=== PATIENT | male | born 1950 | race Caucasian/White ===

== ENCOUNTER 2016-09-29 17:51 | Emergency (ER) | payer MEDICARE, MEDICAID ==
[~2016-09-29] VITALS: Ht 170.2 cm; Wt 90.7 kg
[~2016-09-29 17:51] MED LIST: AMIT25TA9 PO; ASP81TEC PO; ASPI-808 PO; BACL10TA PO; BUDE10.22 IH; DEXL30CA2 PO; DEXL60CA PO; DILT240C53 PO; DILT300C36 PO; DILT360C29 PO; DOXY100C2 PO; DULO60CA58 PO; DULO60CA6 PO; FLUT16SP22 NSEACH; FNT50TD TD; FURO40TA4 PO; GABA-488 PO; GBPN300C PO; HYDR-3454 PO; HYDR200T46; HYDR200T46 PO; LEVO500T80 PO; LOSA100T28 PO; LOSA1TAB23 PO; LOSA1TAB70; METF500T4 PO; METO25TA2 PO; METO50TA2 PO; METR500T21; MORP60TA28 PO; MORP60TA52 PO; OFLO5DRO2 OP; OMEP40CA36 PO; OXYB5TAB9; OXYB5TAB9 PO; POTA20PA3 PO; POTA20TA8 PO; PRED5DRO2I OP; RIVA10TA; RIVA20TA2 PO; RT-ALBUINH IH; SIMV20TA3; SIMV20TA3 PO; TIZA2CAP9; TORS20TA2 PO; UMEC62.5 IH; [UNRECOGNIZED DRUG - CODE] PO
--- OUTSIDE RECORDS SUMMARY | 2016-09-29 17:58 | XMS REPORT | Continuity of Care Document ---
Author Author [facility] Organization [facility] Address Unknown Phone Unavailable Care Team Providers Care Marketing Technology Coordinator Name Role Phone Reena Landon PCP [phone] Source Comments Some departments are not documenting in the electronic medical record. If you do not see the information that you expected, contact Release of Information in the Health Information Management department at [phone] for further assistance in locating additional records.[facility] Active Allergies and Adverse Reactions No Known Allergies Current Medications Prescription Sig. Disp. Refills Start End Date Status Date Diltiazem HCl (CARDIZEM Take 1 Tab by mouth Active LA) 360 mg Tb24 daily. clindamycin,+, (CLEOCIN Apply to affected area Active T) 1 % topical lotion Daily. (to face) simvastatin (ZOCOR) 20 mg Take 20 mg by mouth At Active PO tablet Bedtime Daily. amitriptyline (ELAVIL) 25 Take 25 mg by mouth At Active mg PO tablet Bedtime Daily. aspirin 325 mg tablet Take 325 mg by mouth. Active fentaNYL (DURAGESIC) 50 Apply 1 Patch to top of Active mcg/hr patch skin as directed every 72 hours gabapentin (NEURONTIN) Take 300 mg by mouth Active 300 mg capsule three times daily. oxybutynin (DITROPAN) 5 Take 5 mg by mouth twice Active mg tablet daily. rivaroxaban (XARELTO) 20 Take 20 mg by mouth Active mg tab tablet daily. omeprazole DR(+) Take 40 mg by mouth Active (PRILOSEC) 40 mg capsule daily. pantoprazole DR Take 40 mg by mouth Active (PROTONIX) 40 mg tablet daily. potassium chloride Take 20 mEq by mouth Active (KLOR-CON) 20 mEq packet daily. losartan/hydrochlorothiaz Take by mouth daily. Active audrey (HYZAAR) 100/[address] (CYMBALTA) Take 60 mg by mouth Active 60 mg capsule daily. metoprolol (LOPRESSOR) 25 Take 25 mg by mouth twice Active mg tablet daily. furosemide (LASIX) 40 mg Take 40 mg by mouth Active tablet daily. traMADol (ULTRAM) 50 mg Take 1 Tab by mouth every 90 Tab 2 11/06/19 Active tablet 8 hours as needed for 14 Pain. azithromycin (ZITHROMAX) Z-[place]: Take 2 tabs by 6 Tab 0 08/26/19 Active 250 mg tablet mouth on day 1, followed 15 by 1 tab by mouth daily on days 2-5. hydroxychloroquine 1 Tab twice daily. 60 Tab 2 08/26/19 Active (PLAQUENIL) 200 mg tablet 15 morphine SR (MS CONTIN; Take 60 mg by mouth every Active ORAMORPH SR) 60 mg tablet 12 hours Active Problems Problem Noted Date Antiphospholipid syndrome ([facility]) 08/26/2014 DVT (deep venous thrombosis) ([facility]) 07/22/2013 Immunizations Name Dates Previously Given Next Due Pneumococcal Vaccine 07/27/2010 (23-Diana Adult) Social History Tobacco Use Types Packs/Day Years Used Date Current Every Day Smoker Cigarettes 2 40 Smokeless Tobacco: Never Used Alcohol Use Drinks/Week oz/Week Comments No Last Filed Vital Signs Vital Sign Reading Time Taken Blood Pressure 99/65 02/19/2015 12:59 PM CDT Pulse 50 02/19/2015 12:59 PM CDT Temperature 36.7 C (98 F) 02/19/2015 12:59 PM CDT Respiratory Rate 20 02/19/2015 12:59 PM CDT Height 1.623 m (5' 3.9") 02/19/2015 12:59 PM CDT Weight 99.066 kg (218 lb 6.4 oz) 02/19/2015 12:59 PM CDT Body Mass Index 37.61 02/19/2015 12:59 PM CDT Oxygen Saturation 93% 12/04/2013 11:35 AM CDT Plan of Care Health Maintenance Due Date Last Done Comments Physical (Comprehensive) 1958 Exam Pertussis Vaccine 1962 Tetanus Vaccine 1968 Colorectal Cancer 2001 Screening Shingles Vaccine 2011 Influenza Vaccine 03/23/2016 Results from Last 3 Months Not on file
[2016-09-29] MEDS ORDERED: GABA600T2 PO (18:41)
[2016-09-29] MEDS ORDERED: ROPI2TAB4 PO (18:41)
[2016-09-29] MEDS ORDERED: RT-ALBUTEROL/IPRATROPIUM 3 ML (DUONEB) VIAL ONE (18:58)
[2016-09-29 19:00] LABS: BASOPHILS % (AUTO) 0 % (0-10); EOSINOPHILS # (AUTO) 0.1 10^3/uL (0.0-0.3); EOSINOPHILS % (AUTO) 1 % (0-10); LYMPHOCYTES # (AUTO) 0.6 X 10^3 (1.0-4.0); LYMPHOCYTES % (AUTO) 3 % (12-44); MEAN CORPUSCULAR HEMOGLOBIN 23 PG (25-34); MEAN CORPUSCULAR HGB CONC 34 G/DL (32-36); MEAN CORPUSCULAR VOLUME 68 FL (80-99); MEAN PLATELET VOLUME 10.7 FL (7.4-10.4); MONOCYTES # (AUTO) 1.2 X 10^3 (0.0-1.0); MONOCYTES % (AUTO) 5 % (0-12); NEUTROPHILS # (AUTO) 20.1 X 10^3 (1.8-7.8); NEUTROPHILS % (AUTO) 91 % (42-75); PLATELET COUNT 391 10^3/uL (130-400); RED BLOOD COUNT 5.14 10^6/uL (4.35-5.85); RED CELL DISTRIBUTION WIDTH 19.8 % (10.0-14.5); WHITE BLOOD COUNT 22.1 10^3/uL (4.3-11.0)
[2016-09-29 19:05] LABS: ABG BASE EXCESS -4.3 MMOL/L (-2.5-2.5); ABG HCO3 20 MMOL/L (23-27); ABG OXYGEN SATURATION 94 % (94-100); ABG PCO2 38 MMHG (35-45); ABG PO2 74 MMHG (79-93); ABG TCO2 21.5 MMOL/L (21.0-31.0)
--- NOTE | 2016-09-29 19:09 | Diagnostic Imaging Report ---
EXAMINATION: CHEST (PA AND LATERAL) CLINICAL INDICATION: 66-year-old male, shortness of breath. COMPARISON: April 10, 2016. FINDINGS: Heart size and mediastinal contours are grossly unchanged given differences in lung volumes and technique. There is no identified pneumothorax. There is no definite pleural effusion. There are low lung volumes with associated central bronchovascular crowding. There are mildly prominent pulmonary vascular markings which may relate to the low lung volumes versus pulmonary vascular congestion. IMPRESSION: 1. Low lung volumes with mildly prominent interstitial markings which may relate to central bronchovascular crowding versus mild pulmonary vascular congestion. Dictated by: Dictated on workstation # [id number]
[2016-09-29 19:12] LABS: INR 1.6 (0.8-1.4); PROTHROMBIN TIME PATIENT 18.5 SEC (12.2-14.7)
[2016-09-29 19:18] LABS: ABG PH 7.34 (7.37-7.43); ALLENS TEST YES-POS
[2016-09-29 19:21] LABS: EOSINOPHILS % (MANUAL) 1 %; LYMPHOCYTES % (MANUAL) 1 %; NEUTROPHILS % (MANUAL) 90 %
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
[2016-09-29 19:28] LABS: ALANINE AMINOTRANSFERASE 21 U/L (0-55); ALBUMIN 4.2 G/DL (3.2-4.5); ANION GAP 18 MMOL/L (5-14); ASPARTATE AMINO TRANSFERASE 29 U/L (5-34); BILIRUBIN,TOTAL 0.4 MG/DL (0.1-1.0); BLOOD UREA NITROGEN 51 MG/DL (7-18); BUN/CREATININE RATIO 11; CALCIUM 8.7 MG/DL (8.5-10.1); CARBON DIOXIDE 16 MMOL/L (21-32); CHLORIDE 88 MMOL/L (98-107); CREATININE SERUM 4.79 MG/DL (0.60-1.30); GFR ESTIMATED 12; GLUCOSE 129 MG/DL (70-105); POTASSIUM 5.6 MMOL/L (3.6-5.0); TOTAL PROTEIN 7.6 G/DL (6.4-8.2)
[2016-09-29] MEDS ORDERED: RT-ALBUTEROL SULF 2.5 MG/3 ML PRE-MIX VIAL INH STA (19:29)
[2016-09-29] MEDS ORDERED: methylPREDNISolone 125 MG (Solu-MEDROL) VIAL IVP ONE (19:30)
[2016-09-29] MEDS ORDERED: RT-IPRATROPIUM (ATROVENT) 0.5MG/2.5ML AMP IH ONE ×2 (19:30→19:31)
[2016-09-29] MEDS ORDERED: RT-ALBUTEROL SULF 2.5 MG/3 ML PRE-MIX VIAL ONE (19:31)
[2016-09-29 19:34] LABS: SODIUM 122 MMOL/L (135-145); TROPONIN I < 0.30 NG/ML (<0.30)
[2016-09-29] MEDS ORDERED: NS IV 1000 ML 1,000 ML IV ONE ×2 (19:40→21:40)
[2016-09-29 19:41] LABS: KETONES,URINE 1+ (NEGATIVE); LEUKOCYTE ESTERASE ,URINE 1+ (NEGATIVE); NITRITE,URINE NEGATIVE (NEGATIVE); PH,URINE 5 (5-9); PROTEIN,URINE 2+ (NEGATIVE); UROBILINOGEN,URINE NORMAL (NORMAL)
[2016-09-29] MEDS ORDERED: PIPERACILLIN SODIUM/TAZOBACTAM 4.5 GM in NS (IVPB) 100 ML IV ONE (19:45)
[2016-09-29 19:51] LABS: BILIRUBIN,URINE 2+ (NEGATIVE); SQUAMOUS EPITHELIAL CELL,UR RARE /HPF
[2016-09-29 19:52] LABS: HYALINE CASTS, URINE 25-50 /LPF
[2016-09-29] MEDS ORDERED: SOD POLYSTERENE 15 GM/60 ML (KAYEXALATE) UNIT DOSE PO ONE (20:00)
--- NOTE | 2016-09-29 20:24 | Diagnostic Imaging Report ---
PROCEDURE: CT head and CT cervical spine without contrast. TECHNIQUE: Multiple contiguous axial images were obtained through the brain and cervical spine without the use of intravenous contrast. Sagittal and coronal reformations through the cervical spine were then performed. INDICATION: Lethargy. Shortness of air. COMPARISON: CT head and cervical spine without contrast 04/10/2016. FINDINGS: CT head: Generalized cerebral and cerebellar parenchymal volume loss. Left convexity craniotomy. Stable encephalomalacia in the left parietal and occipital lobes. No intracranial hemorrhage, mass effect, hydrocephalus or extra-axial fluid collections. No CT evidence of acute infarction. The visualized paranasal sinuses, mastoids and orbits are negative. CT cervical spine: Examination mildly limited by motion artifact, particularly at the level of the craniocervical junction. Normal alignment. Vertebral body heights are maintained. No acute fractures identified. Moderate to advanced degenerative endplate changes are most marked at C4-C5, no evidence of high-grade spinal canal narrowing on this noncontrast exam. Arterial calcifications including the carotid bifurcations. The visualized paravertebral soft tissues are otherwise unremarkable. IMPRESSION: No acute intracranial or cervical spine CT findings. Dictated by: Dictated on workstation # [id number]
[2016-09-29] MEDS ORDERED: NALOXONE 0.4 MG/ML 1 ML (NARCAN) VIAL IV ONE (21:00)
[2016-09-29] MEDS ORDERED: D5W 250 ML (IVPB) 250 ML IV ONE (21:44)
[2016-09-29] MEDS ORDERED: NOREPINEPHRINE 4 MG/4 ML (LEVOPHED) AMP IV ONE (21:44)
[2016-09-29] MEDS ORDERED: NOREPINEPHRINE 4 MG in D5W 250 ML (IVPB) 250 ML IV SCH (21:45)
[2016-09-29 22:18] VITALS: BP 106/59
[2016-11-06] MEDS ORDERED: CEFU500T63 PO (14:51)
== END 2016-09-29 22:18 | disposition short-term general hospital (02) ==
LOC: EDUNIT# 17:51 → ER 17:53
DX: J18.9 Pneumonia, unspecified organism (principal); R65.20 Severe sepsis without septic shock; N17.9 Acute kidney failure, unspecified; J44.1 Chronic obstructive pulmonary disease with (acute) exacerbation; E87.5 Hyperkalemia; E87.1 Hypo-osmolality and hyponatremia; I48.2 Chronic atrial fibrillation; R41.82 Altered mental status, unspecified; I10 Essential (primary) hypertension; E11.9 Type 2 diabetes mellitus 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s; G20 Parkinson's disease; F17.210 Nicotine dependence, cigarettes, uncomplicated; Z79.01 Long term (current) use of anticoagulants; Z79.84 Long term (current) use of oral hypoglycemic drugs; Z79.899 Other long term (current) drug therapy
CPT/HCPCS: 36415; 51702; 70450; 71020; 72125; 80053; 81000; 82805; 82962; 83605; 83880; 84484; 85007; 85027; 85610; 85730; 87040; 87804; 93005; 93041; 94640; 96361; 96365; 96367; 96375

== ENCOUNTER → 2016-10-11 | Outpatient (CLI) | payer MEDICARE, MEDICAID ==
[~2016-10-11] MED LIST changes: +CEFU500T63 PO; +GABA600T2 PO; +HYDR-757 PO; +PHEN-639 PO; +ROPI2TAB4 PO
[2016-10-12 09:03] LABS: BILIRUBIN,URINE NEGATIVE (NEGATIVE); KETONES,URINE NEGATIVE (NEGATIVE); LEUKOCYTE ESTERASE ,URINE 2+ (NEGATIVE); NITRITE,URINE POSITIVE (NEGATIVE); PH,URINE 5 (5-9); PROTEIN,URINE 2+ (NEGATIVE); UROBILINOGEN,URINE NORMAL (NORMAL); WBC,URINE >100 /HPF
== END ==
LOC: CVS 21:50
PROVIDERS: ATTEND Internal Medicine
DX: R35.0 Frequency of micturition (principal)
CPT/HCPCS: 81000; 87088

== ENCOUNTER → 2016-11-06 | Emergency (ER) | payer MEDICARE, MEDICAID ==
[~2016-11-06] VITALS: Ht 172.7 cm; Wt 90.7 kg
[~2016-11-06] MED LIST changes: +CATHETER FLUSH 10 ML SYR IV PRN; +IOHEXOL 350 MG/ML 100 ML (OMNIPAQUE 350) VIAL IV ONE; +NS 100 ML (IVPB) BAG IV ONE; +PHENAZOPYRIDINE 100 MG (PYRIDIUM) TABLET PO ONE; +cefTRIAXone INJECTION 1,000 MG in NS (IVPB) 50 ML IV ONE
[2016-11-06 13:52] LABS: BASOPHILS % (AUTO) 0 % (0-10); EOSINOPHILS # (AUTO) 0.2 10^3/uL (0.0-0.3); EOSINOPHILS % (AUTO) 2 % (0-10); LYMPHOCYTES # (AUTO) 1.9 X 10^3 (1.0-4.0); LYMPHOCYTES % (AUTO) 21 % (12-44); MEAN CORPUSCULAR HEMOGLOBIN 23 PG (25-34); MEAN CORPUSCULAR HGB CONC 32 G/DL (32-36); MEAN CORPUSCULAR VOLUME 73 FL (80-99); MEAN PLATELET VOLUME 10.3 FL (7.4-10.4); MONOCYTES # (AUTO) 0.8 X 10^3 (0.0-1.0); MONOCYTES % (AUTO) 9 % (0-12); NEUTROPHILS # (AUTO) 6.1 X 10^3 (1.8-7.8); NEUTROPHILS % (AUTO) 68 % (42-75); PLATELET COUNT 318 10^3/uL (130-400); RED BLOOD COUNT 4.18 10^6/uL (4.35-5.85); RED CELL DISTRIBUTION WIDTH 21.4 % (10.0-14.5); WHITE BLOOD COUNT 8.9 10^3/uL (4.3-11.0)
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
[2016-11-06 14:14] LABS: ALANINE AMINOTRANSFERASE 26 U/L (0-55); ALBUMIN 3.9 G/DL (3.2-4.5); ANION GAP 11 MMOL/L (5-14); ASPARTATE AMINO TRANSFERASE 24 U/L (5-34); BILIRUBIN,TOTAL 0.2 MG/DL (0.1-1.0); BLOOD UREA NITROGEN 11 MG/DL (7-18); BUN/CREATININE RATIO 10; CALCIUM 8.4 MG/DL (8.5-10.1); CARBON DIOXIDE 20 MMOL/L (21-32); CHLORIDE 101 MMOL/L (98-107); CREATININE SERUM 1.13 MG/DL (0.60-1.30); GFR ESTIMATED > 60; GLUCOSE 311 MG/DL (70-105); POTASSIUM 3.8 MMOL/L (3.6-5.0); SODIUM 132 MMOL/L (135-145); TOTAL PROTEIN 6.9 G/DL (6.4-8.2)
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
[2016-11-06 14:28] LABS: BILIRUBIN,URINE NEGATIVE (NEGATIVE); KETONES,URINE NEGATIVE (NEGATIVE); LEUKOCYTE ESTERASE ,URINE 2+ (NEGATIVE); NITRITE,URINE POSITIVE (NEGATIVE); PH,URINE 5 (5-9); PROTEIN,URINE 1+ (NEGATIVE); UROBILINOGEN,URINE NORMAL (NORMAL)
[2016-11-06 14:45] LABS: SQUAMOUS EPITHELIAL CELL,UR 0-2 /HPF
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
[2016-11-06 16:20] VITALS: BP 180/89
== END | disposition home or self-care (01) ==
LOC: EDUNIT# 12:50 → ER 12:53
DX: N39.0 Urinary tract infection, site not specified (principal); N32.89 Other specified disorders of bladder; I10 Essential (primary) hypertension; E11.9 Type 2 diabetes mellitus 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s; G20 Parkinson's disease; F17.210 Nicotine dependence, cigarettes, uncomplicated; Z79.82 Long term (current) use of aspirin; Z79.84 Long term (current) use of oral hypoglycemic drugs; Z79.899 Other long term (current) drug therapy
CPT/HCPCS: 36415; 71260; 74160; 74176; 80053; 81000; 85025; 87077; 87088; 87186; 96365

== ENCOUNTER 2016-11-10 19:42 | Emergency (ER) | payer MEDICARE, MEDICAID ==
[~2016-11-10] VITALS: Ht 170.2 cm; Wt 95.3 kg
[~2016-11-10 19:42] MED LIST changes: -CATHETER FLUSH 10 ML SYR IV PRN; -HYDR-757 PO; -IOHEXOL 350 MG/ML 100 ML (OMNIPAQUE 350) VIAL IV ONE; -NS 100 ML (IVPB) BAG IV ONE; -PHEN-639 PO; -PHENAZOPYRIDINE 100 MG (PYRIDIUM) TABLET PO ONE; -cefTRIAXone INJECTION 1,000 MG in NS (IVPB) 50 ML IV ONE
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
[2016-11-10 20:20] LABS: BASOPHILS % (AUTO) 0 % (0-10); EOSINOPHILS # (AUTO) 0.3 10^3/uL (0.0-0.3); EOSINOPHILS % (AUTO) 1 % (0-10); LYMPHOCYTES # (AUTO) 1.7 X 10^3 (1.0-4.0); LYMPHOCYTES % (AUTO) 9 % (12-44); MEAN CORPUSCULAR HEMOGLOBIN 24 PG (25-34); MEAN CORPUSCULAR HGB CONC 32 G/DL (32-36); MEAN CORPUSCULAR VOLUME 74 FL (80-99); MEAN PLATELET VOLUME 9.6 FL (7.4-10.4); MONOCYTES # (AUTO) 2.2 X 10^3 (0.0-1.0); MONOCYTES % (AUTO) 11 % (0-12); NEUTROPHILS # (AUTO) 16.1 X 10^3 (1.8-7.8); NEUTROPHILS % (AUTO) 79 % (42-75); PLATELET COUNT 353 10^3/uL (130-400); RED BLOOD COUNT 4.38 10^6/uL (4.35-5.85); RED CELL DISTRIBUTION WIDTH 21.9 % (10.0-14.5); WHITE BLOOD COUNT 20.3 10^3/uL (4.3-11.0)
--- NOTE | 2016-11-10 20:28 | Diagnostic Imaging Report ---
INDICATION: Fall. Anterior left rib pain Four views of the chest and left ribs were obtained. The heart size and vascularity are normal. The lungs are clear. There is no effusion or pneumothorax. No rib fracture or other acute bony abnormality is seen. IMPRESSION: Normal chest and left ribs. Dictated by: Dictated on workstation # [id number]
[2016-11-10 20:45] LABS: BAND NEUTROPHILS 3 %; BASOPHILS % (MANUAL) 0 %; EOSINOPHILS % (MANUAL) 3 %; LYMPHOCYTES % (MANUAL) 14 %; NEUTROPHILS % (MANUAL) 72 %
[2016-11-10 20:47] LABS: ANION GAP 12 MMOL/L (5-14); BLOOD UREA NITROGEN 11 MG/DL (7-18); BUN/CREATININE RATIO 10; CALCIUM 8.4 MG/DL (8.5-10.1); CARBON DIOXIDE 21 MMOL/L (21-32); CHLORIDE 100 MMOL/L (98-107); CREATININE SERUM 1.08 MG/DL (0.60-1.30); GFR ESTIMATED > 60; GLUCOSE 105 MG/DL (70-105); POTASSIUM 3.9 MMOL/L (3.6-5.0); SODIUM 133 MMOL/L (135-145)
--- NOTE | 2016-11-10 20:52 | Diagnostic Imaging Report ---
PROCEDURE: CT abdomen and pelvis without contrast. TECHNIQUE: Multiple contiguous axial images were obtained through the abdomen and pelvis without the use of intravenous contrast. INDICATION: Fell five days ago and hit the left side. Left-sided pain. FINDINGS: The lung bases are clear. No rib fracture is seen. The liver, gallbladder and bile ducts are normal. The spleen, pancreas and adrenals are normal. The kidneys, ureters and bladder are normal. No acute bowel abnormality is seen. There is an inguinal hernia on the right which appears to contain the appendix. There is no hemorrhage. There is no free air or free fluid. There are lymph nodes seen in the groin, bilaterally, measuring approximately 16 mm in greatest dimension. IMPRESSION: There is a right inguinal hernia which contains the appendix. There are mildly prominent bilateral inguinal lymph nodes. No other significant abnormality is seen. Dictated by: Dictated on workstation # [id number]
[2016-11-10 22:00] LABS: KETONES,URINE NEGATIVE (NEGATIVE); LEUKOCYTE ESTERASE ,URINE 1+ (NEGATIVE); NITRITE,URINE POSITIVE (NEGATIVE); PH,URINE 5 (5-9); PROTEIN,URINE 1+ (NEGATIVE); UROBILINOGEN,URINE 4 MG/DL (NORMAL)
[2016-11-10 22:08] LABS: BILIRUBIN,URINE NEGATIVE (NEGATIVE)
[2016-11-10 22:09] LABS: SQUAMOUS EPITHELIAL CELL,UR 0-2 /HPF
[2016-11-10] MEDS ORDERED: HYDR-757 PO (22:40)
[2016-11-10] MEDS ORDERED: PHEN-639 PO (22:40)
[2016-11-10 22:44] VITALS: BP 142/67
== END 2016-11-10 22:44 | disposition home or self-care (01) ==
LOC: EDUNIT# 19:42 → ER 19:44
DX: D72.829 Elevated white blood cell count, unspecified (principal); S20.212A Contusion of left front wall of thorax, initial encounter; K40.90 Unilateral inguinal hernia, without obstruction or gangrene, not specified as recurrent; R59.1 Generalized enlarged lymph nodes; J44.9 Chronic obstructive pulmonary disease, unspecified; I10 Essential (primary) hypertension; E11.9 Type 2 diabetes mellitus 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s; G20 Parkinson's disease; Z79.01 Long term (current) use of anticoagulants; Z79.82 Long term (current) use of aspirin; Z79.899 Other long term (current) drug therapy; Z87.891 Personal history of nicotine dependence; W06.XXXA Fall from bed, initial encounter; Y92.538 Other ambulatory health services establishments as the place of occurrence of the external cause; Y99.8 Other external cause status
CPT/HCPCS: 36415; 71101; 74176; 80048; 80306; 81000; 83605; 85007; 85027; 87040; 87077; 87088; 87186; 99282

== ENCOUNTER → 2016-11-11 | Outpatient (CLI) | payer MEDICARE, MEDICAID ==
[~2016-11-11] MED LIST changes: +HYDR-757 PO; +PHEN-639 PO
[2016-11-11 13:12] LABS: BASOPHILS % (AUTO) 0 % (0-10); EOSINOPHILS # (AUTO) 0.3 10^3/uL (0.0-0.3); EOSINOPHILS % (AUTO) 2 % (0-10); LYMPHOCYTES # (AUTO) 1.7 X 10^3 (1.0-4.0); LYMPHOCYTES % (AUTO) 11 % (12-44); MEAN CORPUSCULAR HEMOGLOBIN 24 PG (25-34); MEAN CORPUSCULAR HGB CONC 32 G/DL (32-36); MEAN CORPUSCULAR VOLUME 74 FL (80-99); MEAN PLATELET VOLUME 9.6 FL (7.4-10.4); MONOCYTES % (AUTO) 7 % (0-12); NEUTROPHILS # (AUTO) 12.5 X 10^3 (1.8-7.8); NEUTROPHILS % (AUTO) 80 % (42-75); PLATELET COUNT 335 10^3/uL (130-400); RED CELL DISTRIBUTION WIDTH 22.2 % (10.0-14.5); WHITE BLOOD COUNT 15.6 10^3/uL (4.3-11.0)
[2016-11-11 13:29] LABS: ALANINE AMINOTRANSFERASE 15 U/L (0-55); ALBUMIN 3.9 G/DL (3.2-4.5); ANION GAP 13 MMOL/L (5-14); ASPARTATE AMINO TRANSFERASE 26 U/L (5-34); BILIRUBIN,TOTAL 0.5 MG/DL (0.1-1.0); BLOOD UREA NITROGEN 9 MG/DL (7-18); BUN/CREATININE RATIO 10; CALCIUM 9.1 MG/DL (8.5-10.1); CARBON DIOXIDE 21 MMOL/L (21-32); CHLORIDE 101 MMOL/L (98-107); CREATININE SERUM 0.91 MG/DL (0.60-1.30); GFR ESTIMATED > 60; GLUCOSE 85 MG/DL (70-105); POTASSIUM 3.9 MMOL/L (3.6-5.0); SODIUM 135 MMOL/L (135-145); TOTAL PROTEIN 7.4 G/DL (6.4-8.2); hs C REACTIVE PROTEIN 15.03 MG/DL (0.00-0.50)
== END ==
LOC: LAB 12:52
PROVIDERS: ATTEND Family Medicine
DX: N39.0 Urinary tract infection, site not specified (principal); D72.829 Elevated white blood cell count, unspecified
CPT/HCPCS: 36415; 80053; 85025; 86141

== ENCOUNTER 2017-01-26 14:55 | Emergency (ER) | payer MEDICARE, MEDICAID ==
[~2017-01-26] VITALS: Ht 170.2 cm; Wt 95.3 kg
[2017-01-26] MEDS ORDERED: CARB1TAB19 (16:37)
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
[2017-01-26 17:14] LABS: BASOPHILS # (AUTO) 0.1 10^3/uL (0.0-0.1); BASOPHILS % (AUTO) 1 % (0-10); EOSINOPHILS # (AUTO) 0.3 10^3/uL (0.0-0.3); EOSINOPHILS % (AUTO) 3 % (0-10); LYMPHOCYTES # (AUTO) 2.3 X 10^3 (1.0-4.0); LYMPHOCYTES % (AUTO) 26 % (12-44); MEAN CORPUSCULAR HEMOGLOBIN 23 PG (25-34); MEAN CORPUSCULAR HGB CONC 31 G/DL (32-36); MEAN CORPUSCULAR VOLUME 74 FL (80-99); MEAN PLATELET VOLUME 9.8 FL (7.4-10.4); MONOCYTES # (AUTO) 1.2 X 10^3 (0.0-1.0); MONOCYTES % (AUTO) 13 % (0-12); NEUTROPHILS # (AUTO) 5.2 X 10^3 (1.8-7.8); NEUTROPHILS % (AUTO) 57 % (42-75); PLATELET COUNT 289 10^3/uL (130-400); RED BLOOD COUNT 4.63 10^6/uL (4.35-5.85); RED CELL DISTRIBUTION WIDTH 18.6 % (10.0-14.5); WHITE BLOOD COUNT 9.1 10^3/uL (4.3-11.0)
[2017-01-26 17:31] LABS: ALANINE AMINOTRANSFERASE 20 U/L (0-55); ALBUMIN 4.3 GM/DL (3.2-4.5); ANION GAP 9 MMOL/L (5-14); ASPARTATE AMINO TRANSFERASE 24 U/L (5-34); BILIRUBIN,TOTAL 0.4 MG/DL (0.1-1.0); BLOOD UREA NITROGEN 9 MG/DL (7-18); BUN/CREATININE RATIO 9; CALCIUM 9.5 MG/DL (8.5-10.1); CARBON DIOXIDE 22 MMOL/L (21-32); CHLORIDE 101 MMOL/L (98-107); CREATININE SERUM 0.98 MG/DL (0.60-1.30); GFR ESTIMATED > 60; GLUCOSE 117 MG/DL (70-105); POTASSIUM 4.4 MMOL/L (3.6-5.0); SODIUM 132 MMOL/L (135-145); TOTAL PROTEIN 7.6 GM/DL (6.4-8.2)
[2017-01-26 17:50] LABS: BILIRUBIN,URINE NEGATIVE (NEGATIVE); KETONES,URINE NEGATIVE (NEGATIVE); LEUKOCYTE ESTERASE ,URINE 1+ (NEGATIVE); NITRITE,URINE NEGATIVE (NEGATIVE); PH,URINE 6 (5-9); PROTEIN,URINE 1+ (NEGATIVE); UROBILINOGEN,URINE NORMAL (NORMAL)
[2017-01-26 18:00] LABS: WBC,URINE 0-2 /HPF
--- NOTE | 2017-01-26 18:13 | Diagnostic Imaging Report ---
PROCEDURE: CT head and CT cervical spine without contrast. TECHNIQUE: Multiple contiguous axial images were obtained through the brain and cervical spine without the use of intravenous contrast. Sagittal and coronal reformations through the cervical spine were then performed. INDICATION: Head and neck pain. CT HEAD: As noted on the prior exam of 09/29/16 there has been a prior left frontoparietal craniotomy. The bone windows show no sign of a fracture or for a destructive lesion. There is no intracranial mass, shift of the midline or hemorrhage identified either. There is no sign of an asymmetric hyperdense vessel. The ventricles are not abnormally dilated and stable in size. The cortical atrophy and periventricular encephalomalacia, seen previously, are again evident and no different. The orbits are symmetrical and within normal limits. The sinuses are generally clear. Impression: The postsurgical changes involving the left frontal parietal bone, seen previously, appear stable. There is no acute intracranial abnormality noted. 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 These findings are similar to the previous exam of 09/29/16. There is no fracture or acute bony abnormality evident. There is no sign of retropharyngeal edema. The thyroid gland is unremarkable. The lung apices are clear. There does appear be a small 4-5 mm soft tissue nodule along the wall of the trachea on the right just below the level of the larynx. This finding was not clearly evident on the recent exam. I suspect that this is a benign process. Even so, its development since the previous exam does warrant further study. Direct visualization would be recommended. IMPRESSION: 1. There is no evidence for an acute bony abnormality. 2. There is a small soft tissue density now present along the right lateral wall of the trachea below the level of the larynx. Recommendations as above. 3. These results were discussed with Dr. Segura in the ER. Dictated by: Dictated on workstation # [id number]
[2017-01-26] MEDS ORDERED: fentaNYL INJECTION 100 MCG/2 ML AMP IM ONE (18:15)
[2017-01-26 18:40] VITALS: BP 135/80
--- OUTSIDE RECORDS SUMMARY | 2017-01-30 07:49 | XMS REPORT | Continuity of Care Document ---
Author Author [facility] Organization [facility] Address Unknown Phone Unavailable Care Team Providers Care Gluing Machine Operator Electronic Name Role Phone Reena Landon PCP [phone] Source Comments Some departments are not documenting in the electronic medical record. If you do not see the information that you expected, contact Release of Information in the Health Information Management department at [phone] for further assistance in locating additional records.[facility] Active Allergies and Adverse Reactions No Known [...] Active Problems Problem Noted Date Antiphospholipid syndrome ([facility]) 08/26/2014 DVT (deep venous thrombosis) ([facility]) 07/22/2013 Immunizations Name Dates Previously Given Next [...] Health Maintenance Due Date Last Done Comments Hepatitis C Screening 1950 Physical (Comprehensive) 1958 Exam Pertussis Vaccine 1962 Tetanus Vaccine 1968 Colorectal Cancer 2001 Screening Shingles Vaccine 2011 Abdominal Aortic Aneurysm 2016 Screening Prevnar/Pneumovax (#1) 2016 07/27/2010 Influenza Vaccine 03/23/2017 Results from Last 3 Months Not on file
--- OUTSIDE RECORDS SUMMARY | 2017-01-30 07:53 | XMS REPORT | Continuity of Care Document ---
Author Author [facility] Organization [facility] Address Unknown Phone Unavailable Allergies Active Description Code Type Severity Reaction Onset Reported/Identified Relationship to Patient Clinical Status Yes No Known Drug Allergies [id number] Drug Allergy Unknown N/ A 04/14/2010 Medications Problems Date Dx Coded Attending Type Code Diagnosis Diagnosed By 06/21/1150 GRAZYNA BUSTOS, ALEJANDRO Rahman Ot I87.8 OTHER SPECIFIED DISORDERS OF VEINS 04/14/2010 Ot 530.81 04/14/2010 Ot 558.9 04/14/2010 Ot 562.10 05/05/2012 Ot 272.4 HYPERLIPIDEMIA NEC/NOS 05/05/2012 Ot 305.1 TOBACCO USE DISORDER 05/05/2012 Ot 401.9 HYPERTENSION NOS 05/05/2012 Ot 435.9 TRANS CEREB ISCHEMIA NOS 05/05/2012 Ot 496 CHR AIRWAY OBSTRUCT NEC 05/05/2012 Ot 530.81 ESOPHAGEAL REFLUX 05/05/2012 Ot 593.9 RENAL URETERAL DIS NOS 05/05/2012 Ot 715.90 OSTEOARTHROS NOS-UNSPEC 05/05/2012 Ot 782.3 EDEMA 08/30/2012 Ot 478.19 OTHER DISEASE OF NASAL CAVITY AND SINUSE 08/30/2012 Ot 528.5 DISEASES OF LIPS 12/02/2012 JUSTEN BUSTOS, SHOAIB Panchal Ot 789.00 ABDOMINAL PAIN, UNSPECIFIED SITE 04/14/2014 EDER MURRAY MD Ot 723.1 CERVICALGIA 04/14/2014 EDER MURRAY MD Ot V57.1 PHYSICAL THERAPY NEC 08/07/2014 Ot 784.2 08/07/2014 Ot V81.5 08/07/2014 Ot 528.5 08/07/2014 Ot 784.2 08/07/2014 Ot V72.63 08/07/2014 Ot V72.81 08/07/2014 Ot V72.83 08/07/2014 Ot V74.8 08/07/2014 MERVIN JOY MD Ot 722.4 08/07/2014 MERVIN JOY MD L Ot 729.89 08/07/2014 RUFINO BUSTOS, MERVIN L Ot 782.0 08/13/2014 CANDIDO BUSTOS, ALESSANDRO S Ot 530.11 REFLUX ESOPHAGITIS 08/31/2014 CANDIDO BUSTOS, ALESSANDRO S Ot 462 08/31/2014 CANDIDO BUSTOS, ALESSANDRO S Ot 789.01 09/01/2014 CANDIDO BUSTOS, ALESSANDRO S Ot 462 09/01/2014 CANDIDO BUSTOS, ALESSANDRO S Ot 789.01 10/01/2014 Ot 530.11 REFLUX ESOPHAGITIS 10/30/2014 Ot 490 10/30/2014 Ot 786.05 11/05/2014 Ot V72.84 11/06/2014 Ot 490 11/06/2014 Ot 786.05 11/27/2014 RUFINO BUSTOS, MERVIN L Ot 305.1 11/27/2014 RUFINO BUSTOS, MERVIN Dukes Ot 786.05 12/11/2014 RUFINO BUSTOS, MERVIN L Ot 305.1 12/11/2014 RUFINO BUSTOS, MERVIN L Ot 786.05 12/24/2015 YEE COLVIN DOI Ot D72.829 ELEVATED WHITE BLOOD CELL COUNT, UNSPECI 12/24/2015 VINICIUS SARMIENTO CLARENCE Ot E11.9 TYPE 2 DIABETES MELLITUS WITHOUT COMPLIC 12/24/2015 VINICIUS SARMIENTO CLARENCE Ot F32.9 MAJOR DEPRESSIVE DISORDER, SINGLE EPISOD 12/24/2015 VINICIUS DO CLARENCE Ot F41.9 ANXIETY DISORDER, UNSPECIFIED 12/24/2015 VINICIUS SARMIENTO CLARENCE Ot I10 ESSENTIAL (PRIMARY) HYPERTENSION 12/24/2015 VINICIUS SARMIENTO CLARENCE Ot J44.9 CHRONIC OBSTRUCTIVE PULMONARY DISEASE, U 12/24/2015 VINICIUS DO CLARENCE Ot R10.32 LEFT LOWER QUADRANT PAIN 12/24/2015 VINICIUS DO CLARENCE Ot R19.7 DIARRHEA, UNSPECIFIED 12/24/2015 YEE COLVIN DOI Ot Z87.891 PERSONAL HISTORY OF NICOTINE DEPENDENCE 04/10/2016 Ot 528.5 DISEASES OF LIPS 04/10/2016 Ot 784.2 SWELLING IN HEAD NECK 04/10/2016 Ot V72.63 PRE-PROCEDURAL LABORATORY EXAMINATION 04/10/2016 Ot V72.81 [id number] CARDIOVASCULAR 04/10/2016 Ot V72.83 EXAM PRE-OPERATIVE NEC 04/10/2016 Ot V74.8 SCREEN-BACTERIAL DIS NEC 04/10/2016 RUFINO BUSTOS, MERVIN Dukes Ot 722.4 CERVICAL DISC DEGEN 04/10/2016 RUFINO BUSTOS, MERVIN Dukes Ot 729.89 MUSCSKEL SYMPT LIMB NEC 04/10/2016 RUFINO BUSTOS, MERVIN Dukes Ot 782.0 SKIN SENSATION DISTURB 04/10/2016 CANDIDO BUSTOS, ALESSANDRO S Ot 462 ACUTE PHARYNGITIS 04/10/2016 CANDIDO BUSTOS, ALESSANDRO S Ot 789.01 ABDOMINAL PAIN, RIGHT UPPER QUADRANT 04/10/2016 CANDIDO BUSTOS, ALESSANDRO S Ot V72.84 EXAM PRE-OPERATIVE NOS 04/10/2016 Ot V72.84 EXAM PRE-OPERATIVE NOS 04/10/2016 Ot 490 BRONCHITIS NOS 04/10/2016 Ot 786.05 SHORTNESS OF BREATH 04/10/2016 RUFINO BUSTOS, MERVIN Dukes Ot 305.1 TOBACCO USE DISORDER 04/10/2016 MERVIN JOY MD Ot 786.05 SHORTNESS OF BREATH 04/11/2016 JONATHAN MCDOWELL MD Ot E11.9 TYPE 2 DIABETES MELLITUS WITHOUT COMPLIC 04/11/2016 JONATHAN MCDOWELL MD Ot E86.0 DEHYDRATION 04/11/2016 JONATHAN MCDOWELL MD Ot E87.1 HYPO-OSMOLALITY AND HYPONATREMIA 04/11/2016 JONATHAN MCDOWELL MD Ot E87.6 HYPOKALEMIA 04/11/2016 JONATHAN MCDOWELL MD Ot F11.20 OPIOID DEPENDENCE, UNCOMPLICATED 04/11/2016 JONATHAN MCDOWELL MD Ot F17.210 NICOTINE DEPENDENCE, CIGARETTES, UNCOMPL 04/11/2016 JONATHAN MCDOWELL MD Ot F19.90 OTHER PSYCHOACTIVE SUBSTANCE USE, UNSPEC 04/11/2016 JONATHAN MCDOWELL MD Ot F32.9 MAJOR DEPRESSIVE DISORDER, SINGLE EPISOD 04/11/2016 JONATHAN MCDOWELL MD Ot F41.9 ANXIETY DISORDER, UNSPECIFIED 04/11/2016 JONATHAN MCDOWELL MD Ot I10 ESSENTIAL (PRIMARY) HYPERTENSION 04/11/2016 JONATHAN MCDOWELL MD Ot J44.9 CHRONIC OBSTRUCTIVE PULMONARY DISEASE, U 04/11/2016 JONATHAN MCDOWELL MD Ot K21.9 GASTRO-ESOPHAGEAL REFLUX DISEASE WITHOUT 04/11/2016 JONATHAN MCDOWELL MD Ot N17.9 ACUTE KIDNEY FAILURE, UNSPECIFIED 04/11/2016 JONATHAN MCDOWELL MD Ot N32.89 OTHER SPECIFIED DISORDERS OF BLADDER 04/11/2016 JONATHAN MCDOWELL MD Ot R55 SYNCOPE AND COLLAPSE 04/11/2016 JONATHAN MCDOWELL MD Ot R60.0 LOCALIZED EDEMA 04/11/2016 JONATHAN MCDOWELL MD Ot S01.81XA LACERATION W/O FOREIGN BODY OF OTH PART 04/11/2016 JONATHAN MCDOWELL MD Ot S06.0X9A CONCUSSION W LOSS OF CONSCIOUSNESS OF UN 04/11/2016 JONATHAN MCDOWELL MD Ot S80.811A ABRASION, RIGHT LOWER LEG, INITIAL ENCOU 04/11/2016 JONATHAN MCDOWELL MD Ot W10.9XXA FALL (ON) (FROM) UNSPECIFIED STAIRS AND 04/11/2016 JONATHAN MCDOWELL MD Ot Y99.8 OTHER EXTERNAL CAUSE STATUS 04/11/2016 JONATHAN MCDOWELL MD Ot Z23 ENCOUNTER FOR IMMUNIZATION 04/11/2016 JONATHAN MCDOWELL MD Ot Z86.73 PRSNL HX OF TIA (TIA), AND CEREB INFRC W 06/30/2016 GRAZYNA BUSTOS, ALEJANDRO Rahman Ot I87.8 OTHER SPECIFIED DISORDERS OF VEINS 09/29/2016 Ot 528.5 DISEASES OF LIPS 09/29/2016 Ot 784.2 SWELLING IN HEAD NECK 09/29/2016 Ot V72.63 PRE-PROCEDURAL LABORATORY EXAMINATION 09/29/2016 Ot V72.81 [id number] CARDIOVASCULAR 09/29/2016 Ot V72.83 EXAM PRE-OPERATIVE NEC 09/29/2016 Ot V74.8 SCREEN-BACTERIAL DIS NEC 09/29/2016 RUFINO BUSTOS, MERVIN Dukes Ot 722.4 CERVICAL DISC DEGEN 09/29/2016 RUFINO BUSTOS, MERVIN Dukes Ot 729.89 MUSCSKEL SYMPT LIMB NEC 09/29/2016 RUFINO BUSTOS, MERVIN Dukes Ot 782.0 SKIN SENSATION DISTURB 09/29/2016 CANDIDO BUSTOS, ALESSANDRO Vogel Ot 462 ACUTE PHARYNGITIS 09/29/2016 CANDIDO BUSTOS, ALESSANDRO Vogel Ot 789.01 ABDOMINAL PAIN, RIGHT UPPER QUADRANT 09/29/2016 CANDIDO BUSTOS, ALESSANDRO Vogel Ot V72.84 EXAM PRE-OPERATIVE NOS 09/29/2016 Ot V72.84 EXAM PRE-OPERATIVE NOS 09/29/2016 Ot 490 BRONCHITIS NOS 09/29/2016 Ot 786.05 SHORTNESS OF BREATH 09/29/2016 RUFINO BUSTOS, MERVIN Dukes Ot 305.1 TOBACCO USE DISORDER 09/29/2016 RUFINO BUSTOS, MERVIN Dukes Ot 786.05 SHORTNESS OF BREATH 09/29/2016 Ot 528.5 DISEASES OF LIPS 09/29/2016 Ot 784.2 SWELLING IN HEAD NECK 09/29/2016 Ot V72.63 PRE-PROCEDURAL LABORATORY EXAMINATION 09/29/2016 Ot V72.81 [id number] CARDIOVASCULAR 09/29/2016 Ot V72.83 EXAM PRE-OPERATIVE NEC 09/29/2016 Ot V74.8 SCREEN-BACTERIAL DIS NEC 09/29/2016 RUFINO BUSTOS, MERVIN Dukes Ot 722.4 CERVICAL DISC DEGEN 09/29/2016 RUFINO BUSTOS, MERVIN Dukes Ot 729.89 MUSCSKEL SYMPT LIMB NEC 09/29/2016 RUFINO BUSTOS, MERVIN Dukes Ot 782.0 SKIN SENSATION DISTURB 09/29/2016 CANDIDO BUSTOS, ALESSANDRO Vogel Ot 462 ACUTE PHARYNGITIS 09/29/2016 CANDIDO BUSTOS, ALESSANDRO S Ot 789.01 ABDOMINAL PAIN, RIGHT UPPER QUADRANT 09/29/2016 CANDIDO BUSTOS, ALESSANDRO S Ot V72.84 EXAM PRE-OPERATIVE NOS 09/29/2016 Ot V72.84 EXAM PRE-OPERATIVE NOS 09/29/2016 Ot 490 BRONCHITIS NOS 09/29/2016 Ot 786.05 SHORTNESS OF BREATH 09/29/2016 RUFINO BUSTOS, MERVIN Dukes Ot 305.1 TOBACCO USE DISORDER 09/29/2016 RUFINO BUSTOS, MERVIN Dukes Ot 786.05 SHORTNESS OF BREATH 09/29/2016 DREW BUSTOS, SAUNDRA Camacho Ot E11.9 TYPE 2 DIABETES MELLITUS WITHOUT COMPLIC 09/29/2016 DREW BUSTOS, SAUNDRA Camacho Ot E87.1 HYPO-OSMOLALITY AND HYPONATREMIA 09/29/2016 SAUNDRA RUSSELL MD Ot E87.5 HYPERKALEMIA 09/29/2016 SAUNDRA RUSSELL MD Ot F17.210 NICOTINE DEPENDENCE, CIGARETTES, UNCOMPL 09/29/2016 SAUNDRA RUSSELL MD Ot G20 PARKINSON'S DISEASE 09/29/2016 BRUEGGEMANN MD, SAUNDRA T Ot I10 ESSENTIAL (PRIMARY) HYPERTENSION 09/29/2016 SAUNDRA RUSSELL MD Ot I48.2 CHRONIC ATRIAL FIBRILLATION 09/29/2016 SAUNDRA RUSSELL MD Ot J18.9 PNEUMONIA, UNSPECIFIED ORGANISM 09/29/2016 SAUNRDA RUSSELL MD Ot J44.1 CHRONIC OBSTRUCTIVE PULMONARY DISEASE W 09/29/2016 SAUNDRA RUSSELL MD Ot N17.9 ACUTE KIDNEY FAILURE, UNSPECIFIED 09/29/2016 SAUNDRA RUSSELL MD Ot R06.02 SHORTNESS OF BREATH 09/29/2016 SAUNDRA RUSSELL MD Ot R41.82 ALTERED MENTAL STATUS, UNSPECIFIED 09/29/2016 SAUNDRA RUSSELL MD Ot R65.20 SEVERE SEPSIS WITHOUT SEPTIC SHOCK 09/29/2016 SAUNDRA RUSSELL MD Ot Z79.01 CASING FINISHER AND STUFFER (CURRENT) USE OF ANTICOAGULANT 09/29/2016 SAUNDRA RUSSELL MD Ot Z79.84 HALF-WAY (CURRENT) USE OF ORAL HYPOGLYC 09/29/2016 SAUNDRA RUSSELL MD Ot Z79.899 OTHER HALF-WAY (CURRENT) DRUG THERAPY 10/02/2016 SAUNDRA RUSSELL MD Ot E11.9 TYPE 2 DIABETES MELLITUS WITHOUT COMPLIC 10/02/2016 SAUNDRA RUSSELL MD Ot E87.1 HYPO-OSMOLALITY AND HYPONATREMIA 10/02/2016 SAUNDRA RUSSELL MD Ot E87.5 HYPERKALEMIA 10/02/2016 SAUNRDA RUSSELL MD Ot F17.210 NICOTINE DEPENDENCE, CIGARETTES, UNCOMPL 10/02/2016 SAUNDRA RUSSELL MD Ot G20 PARKINSON'S DISEASE 10/02/2016 SAUNDRA RUSSELL MD Ot I10 ESSENTIAL (PRIMARY) HYPERTENSION 10/02/2016 SAUNDRA RUSSELL MD Ot I48.2 CHRONIC ATRIAL FIBRILLATION 10/02/2016 SAUNDRA RUSSELL MD Ot J18.9 PNEUMONIA, UNSPECIFIED ORGANISM 10/02/2016 SAUNDRA RUSSELL MD Ot J44.1 CHRONIC OBSTRUCTIVE PULMONARY DISEASE W 10/02/2016 SAUNDRA RUSSELL MD Ot N17.9 ACUTE KIDNEY FAILURE, UNSPECIFIED 10/02/2016 SAUNDRA RUSSELL MD Ot R06.02 SHORTNESS OF BREATH 10/02/2016 SAUNDRA RUSSELL MD Ot R41.82 ALTERED MENTAL STATUS, UNSPECIFIED 10/02/2016 SAUNDRA RUSSELL MD Ot R65.20 SEVERE SEPSIS WITHOUT SEPTIC SHOCK 10/02/2016 SAUNDRA RUSSELL MD Ot Z79.01 CASING FINISHER AND STUFFER (CURRENT) USE OF ANTICOAGULANT 10/02/2016 SAUNDRA RUSSELL MD Ot Z79.84 HALF-WAY (CURRENT) USE OF ORAL HYPOGLYC 10/02/2016 SAUNDRA RUSSELL MD, Ot Z79.899 OTHER HALF-WAY (CURRENT) DRUG THERAPY 10/05/2016 SAUNDRA RUSSELL MD Ot E11.9 TYPE 2 DIABETES MELLITUS WITHOUT COMPLIC 10/05/2016 SAUNDRA RUSSELL MD Ot E87.1 HYPO-OSMOLALITY AND HYPONATREMIA 10/05/2016 SAUNDRA RUSSELL MD Ot E87.5 HYPERKALEMIA 10/05/2016 SAUNDRA RUSSELL MD Ot F17.210 NICOTINE DEPENDENCE, CIGARETTES, UNCOMPL 10/05/2016 SAUNDRA RUSSELL MD Ot G20 PARKINSON'S DISEASE 10/05/2016 SAUNDRA RUSSELL MD Ot I10 ESSENTIAL (PRIMARY) HYPERTENSION 10/05/2016 SAUNDRA RUSSELL MD Ot I48.2 CHRONIC ATRIAL FIBRILLATION 10/05/2016 SAUNDRA RUSSELL MD Ot J18.9 PNEUMONIA, UNSPECIFIED ORGANISM 10/05/2016 SAUNDRA RUSSELL MD Ot J44.1 CHRONIC OBSTRUCTIVE PULMONARY DISEASE W 10/05/2016 SAUNDRA RUSSELL MD Ot N17.9 ACUTE KIDNEY FAILURE, UNSPECIFIED 10/05/2016 SAUNDRA RUSSELL MD Ot R06.02 SHORTNESS OF BREATH 10/05/2016 SAUNDRA RUSSELL MD Ot R41.82 ALTERED MENTAL STATUS, UNSPECIFIED 10/05/2016 SAUNDRA RUSSELL MD Ot R65.20 SEVERE SEPSIS WITHOUT SEPTIC SHOCK 10/05/2016 DREW BUSTOS, SAUNDRA Camacho Ot Z79.01 CASING FINISHER AND STUFFER (CURRENT) USE OF ANTICOAGULANT 10/05/2016 SAUNDRA RUSSELL MD Ot Z79.84 HALF-WAY (CURRENT) USE OF ORAL HYPOGLYC 10/05/2016 SAUNDRA RUSSELL MD Ot Z79.899 OTHER HALF-WAY (CURRENT) DRUG THERAPY 10/05/2016 Ot 528.5 DISEASES OF LIPS 10/05/2016 Ot 784.2 SWELLING IN HEAD NECK 10/05/2016 Ot V72.63 PRE-PROCEDURAL LABORATORY EXAMINATION 10/05/2016 Ot V72.81 [id number] CARDIOVASCULAR 10/05/2016 Ot V72.83 EXAM PRE-OPERATIVE NEC 10/05/2016 Ot V74.8 SCREEN-BACTERIAL DIS NEC 10/05/2016 RUFINO BUSTOS, MERVIN Dukes Ot 722.4 CERVICAL DISC DEGEN 10/05/2016 RUFINO BUSTOS, MERVIN Dukes Ot 729.89 MUSCSKEL SYMPT LIMB NEC 10/05/2016 RUFINO BUSTOS, MERVIN Dukes Ot 782.0 SKIN SENSATION DISTURB 10/05/2016 CANDIDO BUSTOS, ALESSANDRO S Ot 462 ACUTE PHARYNGITIS 10/05/2016 CANDIDO BUSTOS, ALESSANDRO S Ot 789.01 ABDOMINAL PAIN, RIGHT UPPER QUADRANT 10/05/2016 CANDIDO BUSTOS, ALESSANDRO S Ot V72.84 EXAM PRE-OPERATIVE NOS 10/05/2016 Ot V72.84 EXAM PRE-OPERATIVE NOS 10/05/2016 Ot 490 BRONCHITIS NOS 10/05/2016 Ot 786.05 SHORTNESS OF BREATH 10/05/2016 RUFINO BUSTOS, MERVIN Dukes Ot 305.1 TOBACCO USE DISORDER 10/05/2016 RUFINO BUSTOS, MERVIN Dukes Ot 786.05 SHORTNESS OF BREATH 10/06/2016 DREW BUSTOS, SAUNDRA Camacho Ot E11.9 TYPE 2 DIABETES MELLITUS WITHOUT COMPLIC 10/06/2016 SAUNDRA RUSSELL MD Ot E87.1 HYPO-OSMOLALITY AND HYPONATREMIA 10/06/2016 SAUNDRA RUSSELL MD Ot E87.5 HYPERKALEMIA 10/06/2016 SAUNDRA RUSSELL MD Ot F17.210 NICOTINE DEPENDENCE, CIGARETTES, UNCOMPL 10/06/2016 SAUNDRA RUSSELL MD Ot G20 PARKINSON'S DISEASE 10/06/2016 SAUNDRA RUSSELL MD Ot I10 ESSENTIAL (PRIMARY) HYPERTENSION 10/06/2016 SAUNDRA RUSSELL MD Ot I48.2 CHRONIC ATRIAL FIBRILLATION 10/06/2016 SAUNDRA RUSSELL MD Ot J18.9 PNEUMONIA, UNSPECIFIED ORGANISM 10/06/2016 SAUNDRA RUSSELL MD Ot J44.1 CHRONIC OBSTRUCTIVE PULMONARY DISEASE W 10/06/2016 SAUNDRA RUSSELL MD Ot N17.9 ACUTE KIDNEY FAILURE, UNSPECIFIED 10/06/2016 SAUNDRA RUSSELL MD Ot R06.02 SHORTNESS OF BREATH 10/06/2016 SAUNDRA RUSSELL MD Ot R41.82 ALTERED MENTAL STATUS, UNSPECIFIED 10/06/2016 SAUNDRA RUSSELL MD Ot R65.20 SEVERE SEPSIS WITHOUT SEPTIC SHOCK 10/06/2016 SAUNDRA RUSSELL MD Ot Z79.01 HALF-WAY (CURRENT) USE OF ANTICOAGULANT 10/06/2016 SAUNDRA RUSSELL MD Ot Z79.84 CASING FINISHER AND STUFFER (CURRENT) USE OF ORAL HYPOGLYC 10/06/2016 SAUNDRA RUSSELL MD Ot Z79.899 OTHER CASING FINISHER AND STUFFER (CURRENT) DRUG THERAPY 10/19/2016 GRAZYNA BUSTOS, ALEJANDRO Rahman Ot R35.0 FREQUENCY OF MICTURITION 11/06/2016 Ot 528.5 DISEASES OF LIPS 11/06/2016 Ot 784.2 SWELLING IN HEAD NECK 11/06/2016 Ot V72.63 PRE-PROCEDURAL LABORATORY EXAMINATION 11/06/2016 Ot V72.81 [id number] CARDIOVASCULAR 11/06/2016 Ot V72.83 EXAM PRE-OPERATIVE NEC 11/06/2016 Ot V74.8 SCREEN-BACTERIAL DIS NEC 11/06/2016 RUFINO BUSTOS, MERVIN Dukes Ot 722.4 CERVICAL DISC DEGEN 11/06/2016 MERVIN JOY MD Ot 729.89 MUSCSKEL SYMPT LIMB NEC 11/06/2016 MERVIN JOY MD Ot 782.0 SKIN SENSATION DISTURB 11/06/2016 CANDIDO BUSTOS, ALESSANDRO Vogel Ot 462 ACUTE PHARYNGITIS 11/06/2016 ALESSANDRO REY MD Ot 789.01 ABDOMINAL PAIN, RIGHT UPPER QUADRANT 11/06/2016 CANDIDO BUSTOS, ALESSANDRO S Ot V72.84 EXAM PRE-OPERATIVE NOS 11/06/2016 Ot V72.84 EXAM PRE-OPERATIVE NOS 11/06/2016 Ot 490 BRONCHITIS NOS 11/06/2016 Ot 786.05 SHORTNESS OF BREATH 11/06/2016 RUFINO BUSTOS, MERVIN Dukes Ot 305.1 TOBACCO USE DISORDER 11/06/2016 MERVIN JOY MD Ot 786.05 SHORTNESS OF BREATH 11/06/2016 ALEJANDRO GERONIMO MD Ot R35.0 FREQUENCY OF MICTURITION 11/07/2016 ALEJANDRO GERONIMO MD Ot R35.0 FREQUENCY OF MICTURITION 11/10/2016 KAYE CHAMBERLAIN APRN Ot D72.829 ELEVATED WHITE BLOOD CELL COUNT, UNSPECI 11/10/2016 KAYE CHAMBERLAIN APRN Ot E11.9 TYPE 2 DIABETES MELLITUS WITHOUT COMPLIC 11/10/2016 KAYE CHAMBERLAIN APRN Ot G20 PARKINSON'S DISEASE 11/10/2016 KAYE CHAMBERLAIN APRN Ot I10 ESSENTIAL (PRIMARY) HYPERTENSION 11/10/2016 KAYE CHAMBERLAIN APRN Ot J44.9 CHRONIC OBSTRUCTIVE PULMONARY DISEASE, U 11/10/2016 KAYE CHAMBERLAIN APRN Ot K40.90 UNIL INGUINAL HERNIA, W/O OBST OR GANGR, 11/10/2016 KAYE CHAMBERLAIN APRN Ot R59.1 GENERALIZED ENLARGED LYMPH NODES 11/10/2016 KAYE CHAMBERLAIN APRN Ot S20.212A CONTUSION OF LEFT FRONT WALL OF THORAX , 11/10/2016 KAYE CHAMBERLAIN APRN Ot S29.9XXA UNSPECIFIED INJURY OF THORAX, INITIAL EN 11/10/2016 KAYE CHAMBERLAIN APRN Ot W06.XXXA FALL FROM BED, INITIAL ENCOUNTER 11/10/2016 KAYE CHAMBERLAIN APRN Ot Y92.538 [facility] ESTABLISH 11/10/2016 KAYE CHAMBERLAIN APRN Ot Y99.8 OTHER EXTERNAL CAUSE STATUS 11/10/2016 KAYE CHAMBERLAIN APRN Ot Z79.01 HALF-WAY (CURRENT) USE OF ANTICOAGULANT 11/10/2016 KAYE CHAMBERLAIN APRN Ot Z79.82 CASING FINISHER AND STUFFER (CURRENT) USE OF ASPIRIN 11/10/2016 KAYE CHAMBERLAIN APRN Ot Z79.899 OTHER CASING FINISHER AND STUFFER (CURRENT) DRUG THERAPY 11/10/2016 KAYE CHAMBERLAIN APRN Ot Z87.891 PERSONAL HISTORY OF NICOTINE DEPENDENCE 11/11/2016 Ot 528.5 DISEASES OF LIPS 11/11/2016 Ot 784.2 SWELLING IN HEAD NECK 11/11/2016 Ot V72.63 PRE-PROCEDURAL LABORATORY EXAMINATION 11/11/2016 Ot V72.81 [id number] CARDIOVASCULAR 11/11/2016 Ot V72.83 EXAM PRE-OPERATIVE NEC 11/11/2016 Ot V74.8 SCREEN-BACTERIAL DIS NEC 11/11/2016 RUFINO BUSTOS, MERVIN Dukes Ot 722.4 CERVICAL DISC DEGEN 11/11/2016 RUFINO BUSTOS, MERVIN Dukes Ot 729.89 MUSCSKEL SYMPT LIMB NEC 11/11/2016 RUFINO BUSTOS, MERVIN Dukes Ot 782.0 SKIN SENSATION DISTURB 11/11/2016 CANDIDO BUSTOS, ALESSANDRO S Ot 462 ACUTE PHARYNGITIS 11/11/2016 CANDIDO BUSTOS, ALESSANDRO S Ot 789.01 ABDOMINAL PAIN, RIGHT UPPER QUADRANT 11/11/2016 CANDIDO BUSTOS, ALESSANDRO S Ot V72.84 EXAM PRE-OPERATIVE NOS 11/11/2016 Ot V72.84 EXAM PRE-OPERATIVE NOS 11/11/2016 Ot 490 BRONCHITIS NOS 11/11/2016 Ot 786.05 SHORTNESS OF BREATH 11/11/2016 RUFINO BUSTOS, MERVIN Dukes Ot 305.1 TOBACCO USE DISORDER 11/11/2016 RUFINO BUSTOS, MERVIN Dukes Ot 786.05 SHORTNESS OF BREATH 11/11/2016 GRAZYNA BUSTOS, ALEJANDRO Rahman Ot R35.0 FREQUENCY OF MICTURITION 11/11/2016 KAYE CHAMBERLAIN APRN Ot E11.9 TYPE 2 DIABETES MELLITUS WITHOUT COMPLIC 11/11/2016 KAYE CHAMBERLAIN BLASTING ENTRYMAN Ot F17.210 NICOTINE DEPENDENCE, CIGARETTES, UNCOMPL 11/11/2016 KAYE CHAMBERLAIN BLASTING ENTRYMAN Ot G20 PARKINSON'S DISEASE 11/11/2016 KAYE CHAMBERLAIN APRN Ot I10 ESSENTIAL (PRIMARY) HYPERTENSION 11/11/2016 KAYE CHAMBERLAIN APRN Ot N32.89 OTHER SPECIFIED DISORDERS OF BLADDER 11/11/2016 KAYE CHAMBERLAIN APRN Ot N39.0 URINARY TRACT INFECTION, SITE NOT SPECIF 11/11/2016 KAYE CHAMBERLAIN APRN Ot R10.30 LOWER ABDOMINAL PAIN, UNSPECIFIED 11/11/2016 KAYE CHAMBERLAIN APRN Ot Z79.82 HALF-WAY (CURRENT) USE OF ASPIRIN 11/11/2016 KAYE CHAMBERLAIN APRN Ot Z79.84 HALF-WAY (CURRENT) USE OF ORAL HYPOGLYC 11/11/2016 KAYE CHAMBERLAIN APRN Ot Z79.899 OTHER CASING FINISHER AND STUFFER (CURRENT) DRUG THERAPY 11/13/2016 KAYE CHAMBERLAIN APRN Ot D72.829 ELEVATED WHITE BLOOD CELL COUNT, UNSPECI 11/13/2016 KAYE CHAMBERLAIN APRN Ot E11.9 TYPE 2 DIABETES MELLITUS WITHOUT COMPLIC 11/13/2016 KAYE CHAMBERLAIN APRN Ot G20 PARKINSON'S DISEASE 11/13/2016 KAYE CHAMBERLAIN APRN Ot I10 ESSENTIAL (PRIMARY) HYPERTENSION 11/13/2016 KAYE CHAMBERLAIN APRN Ot J44.9 CHRONIC OBSTRUCTIVE PULMONARY DISEASE, U 11/13/2016 KAYE CHAMBERLAIN APRN Ot K40.90 UNIL INGUINAL HERNIA, W/O OBST OR GANGR, 11/13/2016 KAYE CHAMBERLAIN APRN Ot R59.1 GENERALIZED ENLARGED LYMPH NODES 11/13/2016 KAYE CHAMBERLAIN APRN Ot S20.212A CONTUSION OF LEFT FRONT WALL OF THORAX , 11/13/2016 KAYE CHAMBERLAIN APRN Ot S29.9XXA UNSPECIFIED INJURY OF THORAX, INITIAL EN 11/13/2016 KAYE CHAMBERLAIN APRN Ot W06.XXXA FALL FROM BED, INITIAL ENCOUNTER 11/13/2016 KAYE CHAMBERLAIN APRN Ot Y92.538 [facility] ESTABLISH 11/13/2016 KAYE CHAMBERLAIN APRN Ot Y99.8 OTHER EXTERNAL CAUSE STATUS 11/13/2016 KAYE CHAMBERLAIN APRN Ot Z79.01 HALF-WAY (CURRENT) USE OF ANTICOAGULANT 11/13/2016 KAYE CHAMBERLAIN APRN Ot Z79.82 [employer] (CURRENT) USE OF ASPIRIN 11/13/2016 KAYE CHAMBERLAIN APRN Ot Z79.899 OTHER [employer] FIN[employer] STUFFER (CURRENT) DRUG THERAPY 11/13/2016 KAYE CHAMBERLAIN APRN Ot Z87.891 PERSONAL HISTORY OF NICOTINE DEPENDENCE 11/15/2016 KAYE CHAMBERLAIN APRN Ot E11.9 TYPE 2 DIABETES MELLITUS WITHOUT COMPLIC 11/15/2016 KAYE CHAMBERLAIN APRN Ot F17.210 NICOTINE DEPENDENCE, CIGARETTES, UNCOMPL 11/15/2016 KAYE CHAMBERLAIN APRN Ot G20 PARKINSON'S DISEASE 11/15/2016 KAYE CHAMBERLAIN APRN Ot I10 ESSENTIAL (PRIMARY) HYPERTENSION 11/15/2016 KAYE CHAMBERLAIN APRN Ot N32.89 OTHER SPECIFIED DISORDERS OF BLADDER 11/15/2016 KAYE CHAMBERLAIN APRN Ot N39.0 URINARY TRACT INFECTION, SITE NOT SPECIF 11/15/2016 KAYE CHAMBERLAIN APRN Ot R10.30 LOWER ABDOMINAL PAIN, UNSPECIFIED 11/15/2016 KAYE CHAMBERLAIN APRN Ot Z79.82 [employer]ING [employer] STUFFER (CURRENT) USE OF ASPIRIN 11/15/2016 KAYE CHAMBERLAIN APRN Ot Z79.84 HALF-WAY (CURRENT) USE OF ORAL HYPOGLYC 11/15/2016 KAYE CHAMBERLAIN APRN Ot Z79.899 OTHER CASING FINISHER AND STUFFER (CURRENT) DRUG THERAPY 12/04/2016 MICHELLE VERNON DO Ot D72.829 ELEVATED WHITE BLOOD CELL COUNT, UNSPECI 12/04/2016 MICHELLE VERNON DO Ot N39.0 URINARY TRACT INFECTION, SITE NOT SPECIF 12/26/2016 KAYE CHAMBERLAIN APRN Ot D72.829 ELEVATED WHITE BLOOD CELL COUNT, UNSPECI 12/26/2016 KAYE CHAMBERLAIN APRN Ot E11.9 TYPE 2 DIABETES MELLITUS WITHOUT COMPLIC 12/26/2016 KAYE CHAMBERLAIN APRN Ot G20 PARKINSON'S DISEASE 12/26/2016 KAYE CHAMBERLAIN APRN Ot I10 ESSENTIAL (PRIMARY) HYPERTENSION 12/26/2016 KAYE CHAMBERLAIN APRN Ot J44.9 CHRONIC OBSTRUCTIVE PULMONARY DISEASE, U 12/26/2016 KAYE CHAMBERLAIN APRN Ot K40.90 UNIL INGUINAL HERNIA, W/O OBST OR GANGR, 12/26/2016 KAYE CHAMBERLAIN APRN Ot R59.1 GENERALIZED ENLARGED LYMPH NODES 12/26/2016 KAYE CHAMBERLAIN APRN Ot S20.212A CONTUSION OF LEFT FRONT WALL OF THORAX , 12/26/2016 KAYE CHAMBERLAIN APRN Ot S29.9XXA UNSPECIFIED INJURY OF THORAX, INITIAL EN 12/26/2016 KAYE CHAMBERLAIN APRN Ot W06.XXXA FALL FROM BED, INITIAL ENCOUNTER 12/26/2016 KAYE CHAMBERLAIN APRN Ot Y92.538 [facility] ESTABLISH 12/26/2016 KAYE CHAMBERLAIN APRN Ot Y99.8 OTHER EXTERNAL CAUSE STATUS 12/26/2016 KAEY CHAMBERLAIN APRN Ot Z79.01 HALF-WAY (CURRENT) USE OF ANTICOAGULANT 12/26/2016 KAYE CHAMBERLAIN APRN Ot Z79.82 [employer]ING FINISHER AND STUFFER (CURRENT) USE OF ASPIRIN 12/26/2016 KAYE CHAMBERLAIN APRN Ot Z79.899 OTHER [employer]ING FINISHER [employer] STUFFER (CURRENT) DRUG THERAPY 12/26/2016 KAYE CHAMBERLAIN APRN Ot Z87.891 PERSONAL HISTORY OF NICOTINE DEPENDENCE 01/26/2017 Ot 528.5 DISEASES OF LIPS 01/26/2017 Ot 784.2 SWELLING IN HEAD NECK 01/26/2017 Ot V72.63 PRE-PROCEDURAL LABORATORY EXAMINATION 01/26/2017 Ot V72.81 [id number] CARDIOVASCULAR 01/26/2017 Ot V72.83 EXAM PRE-OPERATIVE NEC 01/26/2017 Ot V74.8 SCREEN-BACTERIAL DIS NEC 01/26/2017 RUFINO BUSTOS, MERVIN Dukes Ot 722.4 CERVICAL DISC DEGEN 01/26/2017 URFINO BUSTOS, MERVIN Dukes Ot 729.89 MUSCSKEL SYMPT LIMB NEC 01/26/2017 RUFINO BUSTOS, MERVIN Dukes Ot 782.0 SKIN SENSATION DISTURB 01/26/2017 CANDIDO BUSTOS, ALESSANDRO Vogel Ot 462 ACUTE PHARYNGITIS 01/26/2017 CANDIDO BUSTOS, ALESSANDRO Vogel Ot 789.01 ABDOMINAL PAIN, RIGHT UPPER QUADRANT 01/26/2017 CANDIDO BUSTOS, ALESSANDRO Vogel Ot V72.84 EXAM PRE-OPERATIVE NOS 01/26/2017 Ot V72.84 EXAM PRE-OPERATIVE NOS 01/26/2017 Ot 490 BRONCHITIS NOS 01/26/2017 Ot 786.05 SHORTNESS OF BREATH 01/26/2017 RUFINO BUSTOS, MERVIN Dukes Ot 305.1 TOBACCO USE DISORDER 01/26/2017 RUFINO BUSTOS, MERVIN Dukes Ot 786.05 SHORTNESS OF BREATH 01/26/2017 GRAZYNA BUSTOS, ALEJANDRO Rahman Ot R35.0 FREQUENCY OF MICTURITION 01/26/2017 KAYE CHAMBERLAIN APRN Ot E11.9 TYPE 2 DIABETES MELLITUS WITHOUT COMPLIC 01/26/2017 KAYE CHAMBERLAIN APRN Ot F17.210 NICOTINE DEPENDENCE, CIGARETTES, UNCOMPL 01/26/2017 KAYE CHAMBERLAIN APRN Ot G20 PARKINSON'S DISEASE 01/26/2017 KAYE CHAMBERLAIN APRN Ot I10 ESSENTIAL (PRIMARY) HYPERTENSION 01/26/2017 KAYE CHAMBERLAIN APRN Ot N32.89 OTHER SPECIFIED DISORDERS OF BLADDER 01/26/2017 KAYE CHAMBERLAIN APRN Ot N39.0 URINARY TRACT INFECTION, SITE NOT SPECIF 01/26/2017 KAYE CHAMBERLAIN APRN Ot R10.30 LOWER ABDOMINAL PAIN, UNSPECIFIED 01/26/2017 KAYE CHAMBERLAIN APRN Ot Z79.82 CASING FINISHER AND STUFFER (CURRENT) USE OF ASPIRIN 01/26/2017 KAYE CHAMBERLAIN APRN Ot Z79.84 [employer]ING FINISHER AND STUFFER (CURRENT) USE OF ORAL HYPOGLYC 01/26/2017 KAYE CHAMBERLAIN APRN Ot Z79.899 OTHER CASING FINISHER AND STUFFER (CURRENT) DRUG THERAPY 01/26/2017 MICHELLE VERNON DO, Ot D72.829 ELEVATED WHITE BLOOD CELL COUNT, UNSPECI 01/26/2017 MICHELLE VERNON DO Ot N39.0 URINARY TRACT INFECTION, SITE NOT SPECIF Procedures Code Description Performed By Performed On [id number] REPAIR FACE SKIN, EXTERNAL APPROACH 04/10/2016 Results Test Result Range Complete blood count (CBC) with automated white blood cell (WBC) differential - 04/10/16 07:00 Blood leukocytes automated count (number/volume) 16.3 10*3/ uL 4.3-11.0 Blood erythrocytes automated count (number/volume) 4.67 10*6 /uL 4.35-5.85 Venous blood hemoglobin measurement (mass/volume) 11.5 g/dL 13.3-17.7 Blood hematocrit (volume fraction) 33 % 40-54 Automated erythrocyte mean corpuscular volume 72 [foz_us] 80-99 Automated erythrocyte mean corpuscular hemoglobin (mass per erythrocyte) 25 pg 25-34 Automated erythrocyte mean corpuscular hemoglobin concentration measurement ( mass/volume) 34 g/dL 32-36 Automated erythrocyte distribution width ratio 17.0 % 10.0-14.5 Automated blood platelet count (count/volume) 287 10*3/uL 130-400 Automated blood platelet mean volume measurement 9.6 [foz_us ] 7.4-10.4 Automated blood neutrophils/100 leukocytes 77 % 42-75 Automated blood lymphocytes/100 leukocytes 11 % 12-44 Blood monocytes/100 leukocytes 9 % 0-12 Automated blood eosinophils/100 leukocytes 2 % 0-10 Automated blood basophils/100 leukocytes 0 % 0-10 Blood neutrophils automated count (number/volume) 12.6 10*3 1.8-7.8 Blood lymphocytes automated count (number/volume) 1.9 10*3 1.0-4.0 Blood monocytes automated count (number/volume) 1.5 10*3 0.0-1.0 Automated eosinophil count 0.3 10*3/uL 0.0-0.3 Automated blood basophil count (count/volume) 0.0 10*3/uL 0.0-0.1 PT panel in platelet poor plasma by coagulation assay - 04/10/16 07:00 Prothrombin time (PT) in platelet poor plasma by coagulation assay 17.7 s 12.2-14.7 INR in platelet poor plasma or blood by coagulation assay 1.5 0.8-1.4 Activated partial thromboplastin time (aPTT) in platelet poor plasma bycoagulation assay - 04/10/16 07:00 Activated partial thromboplastin time (aPTT) in platelet poor plasma bycoagulation assay 37 s 24-35 Blood manual differential performed detection - 04/10/16 07:00 Blood monocytes/100 leukocytes 8 % NRG Manual blood segmented neutrophils/100 leukocytes 75 % NRG Blood band neutrophils/100 leukocytes 0 % NRG Manual blood lymphocytes/100 leukocytes 15 % NRG Manual eosinophils/100 leukocytes in nose 2 % NRG Manual blood basophils/100 leukocytes 0 % NRG Blood anisocytosis detection by light microscopy MARKED NRG Blood ovalocytes detection by light microscopy SLIGHT NRG Comprehensive metabolic panel - 04/10/16 07:00 Serum or plasma sodium measurement (moles/volume) 124 mmol/ L 135-145 Serum or plasma potassium measurement (moles/volume) 3.4 mmol/L 3.6-5.0 Serum or plasma chloride measurement (moles/volume) 90 mmol/ L 98-107 Carbon dioxide 19 mmol/L 21-32 Serum or plasma anion gap determination (moles/volume) 15 mmol/L 5-14 Serum or plasma urea nitrogen measurement (mass/volume) 20 mg/dL 7-18 Serum or plasma creatinine measurement (mass/volume) 1.51 mg /dL 0.60-1.30 Serum or plasma urea nitrogen/creatinine mass ratio 13 NRG Serum or plasma creatinine measurement with calculation of estimated glomerular filtration rate 47 NRG Serum or plasma glucose measurement (mass/volume) 123 mg/dL 70-105 Serum or plasma calcium measurement (mass/volume) 9.2 mg/dL 8.5-10.1 Serum or plasma total bilirubin measurement (mass/volume) 0.4 mg/dL 0.1-1.0 Serum or plasma alkaline phosphatase measurement (enzymatic activity/volume) 45 U/L 40-136 Serum or plasma aspartate aminotransferase measurement (enzymatic activity/ volume) 29 U/L 5-34 Serum or plasma alanine aminotransferase measurement (enzymatic activity/volume ) 21 U/L 0-55 Serum or plasma protein measurement (mass/volume) 7.4 g/dL 6.4-8.2 Serum or plasma albumin measurement (mass/volume) 4.6 g/dL 3.2-4.5 Magnesium - 04/10/16 07:00 Magnesium 2.1 mg/dL 1.8-2.4 Serum or plasma creatine kinase measurement (enzymatic activity/volume) - 04/10 07:00 Serum or plasma creatine kinase measurement (enzymatic activity/volume) 348 U/L 30-200 Serum or plasma creatine kinase MB measurement (enzymatic activity/volume) - 07:00 Serum or plasma creatine kinase MB measurement (enzymatic activity/volume) 4.7 ng/mL <6.6 Serum or plasma troponin i.cardiac measurement (mass/volume) - 04/10/16 07:00 Serum or plasma troponin i.cardiac measurement (mass/volume) < ng/mL <0.30 Serum or plasma lithium measurement (moles/volume) - 04/10/16 07:00 BNP level 27.5 pg/mL <100.0 Myoglobin, serum - 04/10/16 07:00 Myoglobin, serum 261.6 ng/mL 10.0-92.0 Serum or plasma ethanol measurement (mass/volume) - 04/10/16 07:20 Serum or plasma ethanol measurement (mass/volume) < mg/dL <10 Capillary blood glucose measurement by glucometer (mass/volume) - 04/10/16 07: 21 Capillary blood glucose measurement by glucometer (mass/volume) 138 mg/dL 70-110 Complete urinalysis with reflex to culture - 04/10/16 09:40 Urine color determination YELLOW NRG Urine clarity determination CLEAR NRG Urine pH measurement by test strip 6.5 5 -9 Specific gravity of urine by test strip 1.005 1.016-1.022 Urine protein assay by test strip, semi-quantitative NEGATIVE NEGATIVE Urine glucose detection by automated test strip NEGATIVE NEGATIVE Erythrocytes detection in urine sediment by light microscopy NEGATIVE NEGATIVE Urine ketones detection by automated test strip NEGATIVE NEGATIVE Urine nitrite detection by test strip NEGATIVE NEGATIVE Urine total bilirubin detection by test strip NEGATIVE NEGATIVE Urine urobilinogen measurement by automated test strip (mass/volume) NORMAL NORMAL Urine leukocyte esterase detection by dipstick NEGATIVE NEGATIVE Automated urine sediment erythrocyte count by microscopy (number/high power field) NONE NRG Automated urine sediment leukocyte count by microscopy (number/high power field ) NONE NRG Bacteria detection in urine sediment by light microscopy NEGATIVE NRG Squamous epithelial cells detection in urine sediment by light microscopy 0-2 NRG Crystals detection in urine sediment by light microscopy NONE NRG Casts detection in urine sediment by light microscopy NONE NRG Mucus detection in urine sediment by light microscopy NEGATIVE NRG Complete urinalysis with reflex to culture NO NRG Urine drug screening test - 04/10/16 09:40 Urine phencyclidine detection by screening method NEGATIVE NEGATIVE Urine benzodiazepines detection by screening method NEGATIVE NEGATIVE Urine cocaine detection NEGATIVE NEGATIVE Urine amphetamines detection by screening method NEGATIVE NEGATIVE Urine methamphetamine detection by screening method NEGATIVE NEGATIVE Urine cannabinoids detection by screening method NEGATIVE NEGATIVE Urine opiates detection by screening method POSITIVE NEGATIVE Urine barbiturates detection NEGATIVE NEGATIVE Screening urine tricyclic antidepressants detection POSITIVE NEGATIVE Urine methadone detection by screening method NEGATIVE NEGATIVE Urine oxycodone detection POSITIVE NEGATIVE Urine propoxyphene detection NEGATIVE NEGATIVE Urine buprenophrine screen NEGATIVE NEGATIVE Capillary blood glucose measurement by glucometer (mass/volume) - 04/10/16 11: 39 Capillary blood glucose measurement by glucometer (mass/volume) 134 mg/dL 70-110 Serum or plasma troponin i.cardiac measurement (mass/volume) - 04/10/16 13:20 Serum or plasma troponin i.cardiac measurement (mass/volume) < ng/mL <0.30 Whole blood basic metabolic panel - 04/10/16 16:05 Serum or plasma sodium measurement (moles/volume) 131 mmol/ L 135-145 Serum or plasma potassium measurement (moles/volume) 3.5 mmol/L 3.6-5.0 Serum or plasma chloride measurement (moles/volume) 99 mmol/ L 98-107 Carbon dioxide 20 mmol/L 21-32 Serum or plasma anion gap determination (moles/volume) 12 mmol/L 5-14 Serum or plasma urea nitrogen measurement (mass/volume) 14 mg/dL 7-18 Serum or plasma creatinine measurement (mass/volume) 1.04 mg /dL 0.60-1.30 Serum or plasma urea nitrogen/creatinine mass ratio 13 NRG Serum or plasma creatinine measurement with calculation of estimated glomerular filtration rate > NRG Serum or plasma glucose measurement (mass/volume) 111 mg/dL 70-105 Serum or plasma calcium measurement (mass/volume) 8.9 mg/dL 8.5-10.1 Capillary blood glucose measurement by glucometer (mass/volume) - 04/10/16 17: 34 Capillary blood glucose measurement by glucometer (mass/volume) 125 mg/dL 70-110 Complete blood count (CBC) with automated white blood cell (WBC) differential - 04/11/16 04:00 Blood leukocytes automated count (number/volume) 10.3 10*3/ uL 4.3-11.0 Blood erythrocytes automated count (number/volume) 4.54 10*6 /uL 4.35-5.85 Venous blood hemoglobin measurement (mass/volume) 10.9 g/dL 13.3-17.7 Blood hematocrit (volume fraction) 33 % 40-54 Automated erythrocyte mean corpuscular volume 72 [foz_us] 80-99 Automated erythrocyte mean corpuscular hemoglobin (mass per erythrocyte) 24 pg 25-34 Automated erythrocyte mean corpuscular hemoglobin concentration measurement ( mass/volume) 33 g/dL 32-36 Automated erythrocyte distribution width ratio 17.1 % 10.0-14.5 Automated blood platelet count (count/volume) 287 10*3/uL 130-400 Automated blood platelet mean volume measurement 10.6 [foz_ us] 7.4-10.4 Automated blood neutrophils/100 leukocytes 76 % 42-75 Automated blood lymphocytes/100 leukocytes 12 % 12-44 Blood monocytes/100 leukocytes 10 % 0-12 Automated blood eosinophils/100 leukocytes 1 % 0-10 Automated blood basophils/100 leukocytes 0 % 0-10 Blood neutrophils automated count (number/volume) 7.9 10*3 1.8-7.8 Blood lymphocytes automated count (number/volume) 1.2 10*3 1.0-4.0 Blood monocytes automated count (number/volume) 1.1 10*3 0.0-1.0 Automated eosinophil count 0.1 10*3/uL 0.0-0.3 Automated blood basophil count (count/volume) 0.0 10*3/uL 0.0-0.1 Comprehensive metabolic panel - 04/11/16 04:00 Serum or plasma sodium measurement (moles/volume) 137 mmol/ L 135-145 Serum or plasma potassium measurement (moles/volume) 3.4 mmol/L 3.6-5.0 Serum or plasma chloride measurement (moles/volume) 106 mmol /L 98-107 Carbon dioxide 18 mmol/L 21-32 Serum or plasma anion gap determination (moles/volume) 13 mmol/L 5-14 Serum or plasma urea nitrogen measurement (mass/volume) 8 mg /dL 7-18 Serum or plasma creatinine measurement (mass/volume) 0.90 mg /dL 0.60-1.30 Serum or plasma urea nitrogen/creatinine mass ratio 9 NRG Serum or plasma creatinine measurement with calculation of estimated glomerular filtration rate > NRG Serum or plasma glucose measurement (mass/volume) 107 mg/dL 70-105 Serum or plasma calcium measurement (mass/volume) 9.1 mg/dL 8.5-10.1 Serum or plasma total bilirubin measurement (mass/volume) 0.9 mg/dL 0.1-1.0 Serum or plasma alkaline phosphatase measurement (enzymatic activity/volume) 41 U/L 40-136 Serum or plasma aspartate aminotransferase measurement (enzymatic activity/ volume) 27 U/L 5-34 Serum or plasma alanine aminotransferase measurement (enzymatic activity/volume ) 17 U/L 0-55 Serum or plasma protein measurement (mass/volume) 6.4 g/dL 6.4-8.2 Serum or plasma albumin measurement (mass/volume) 4.1 g/dL 3.2-4.5 Lipid 1996 panel - 04/11/16 04:00 Serum or plasma triglyceride measurement (mass/volume) 129 mg/dL <150 Serum or plasma cholesterol measurement (mass/volume) 128 mg /dL < 200 Serum or plasma cholesterol in HDL measurement (mass/volume) 35 mg/dL 40-60 Cholesterol in LDL [mass/volume] in serum or plasma by direct assay 75 mg/dL 1-129 Serum or plasma cholesterol in VLDL measurement (mass/volume) 26 mg/dL 5-40 Complete blood count (CBC) with automated white blood cell (WBC) differential - 09/29/16 18:20 Blood leukocytes automated count (number/volume) 22.1 10*3/ uL 4.3-11.0 Blood erythrocytes automated count (number/volume) 5.14 10*6 /uL 4.35-5.85 Venous blood hemoglobin measurement (mass/volume) 11.7 g/dL 13.3-17.7 Blood hematocrit (volume fraction) 35 % 40-54 Automated erythrocyte mean corpuscular volume 68 [foz_us] 80-99 Automated erythrocyte mean corpuscular hemoglobin (mass per erythrocyte) 23 pg 25-34 Automated erythrocyte mean corpuscular hemoglobin concentration measurement ( mass/volume) 34 g/dL 32-36 Automated erythrocyte distribution width ratio 19.8 % 10.0-14.5 Automated blood platelet count (count/volume) 391 10*3/uL 130-400 Automated blood platelet mean volume measurement 10.7 [foz_ us] 7.4-10.4 Automated blood neutrophils/100 leukocytes 91 % 42-75 Automated blood lymphocytes/100 leukocytes 3 % 12-44 Blood monocytes/100 leukocytes 5 % 0-12 Automated blood eosinophils/100 leukocytes 1 % 0-10 Automated blood basophils/100 leukocytes 0 % 0-10 Blood neutrophils automated count (number/volume) 20.1 10*3 1.8-7.8 Blood lymphocytes automated count (number/volume) 0.6 10*3 1.0-4.0 Blood monocytes automated count (number/volume) 1.2 10*3 0.0-1.0 Automated eosinophil count 0.1 10*3/uL 0.0-0.3 Automated blood basophil count (count/volume) 0.0 10*3/uL 0.0-0.1 Blood manual differential performed detection - 09/29/16 18:20 Blood monocytes/100 leukocytes 8 % NRG Manual blood segmented neutrophils/100 leukocytes 90 % NRG Manual blood lymphocytes/100 leukocytes 1 % NRG Manual eosinophils/100 leukocytes in nose 1 % NRG Blood erythrocyte morphology finding identification NORMAL NRG Serum or plasma lithium measurement (moles/volume) - 09/29/16 18:20 BNP level 333.0 pg/mL <100.0 Bacterial blood culture - 09/29/16 18:20 Bacterial blood culture NG NRG PT panel in platelet poor plasma by coagulation assay - 09/29/16 18:52 Prothrombin time (PT) in platelet poor plasma by coagulation assay 18.5 s 12.2-14.7 INR in platelet poor plasma or blood by coagulation assay 1.6 0.8-1.4 Activated partial thromboplastin time (aPTT) in platelet poor plasma bycoagulation assay - 09/29/16 18:52 Activated partial thromboplastin time (aPTT) in platelet poor plasma bycoagulation assay 45 s 24-35 Influenza virus A and B antigen detection - 09/29/16 18:52 FLU RESULT NEGATIVE FOR INFLUENZA A AND B ANTIGENS BY IA [facility] Blood lactic acid measurement (moles/volume) - 09/29/16 18:52 Blood lactic acid measurement (moles/volume) 2.30 mmol/L 0.50-2.00 Comprehensive metabolic panel - 09/29/16 18:52 Serum or plasma sodium measurement (moles/volume) 122 mmol/ L 135-145 Serum or plasma potassium measurement (moles/volume) 5.6 mmol/L 3.6-5.0 Serum or plasma chloride measurement (moles/volume) 88 mmol/ L 98-107 Carbon dioxide 16 mmol/L 21-32 Serum or plasma anion gap determination (moles/volume) 18 mmol/L 5-14 Serum or plasma urea nitrogen measurement (mass/volume) 51 mg/dL 7-18 Serum or plasma creatinine measurement (mass/volume) 4.79 mg /dL 0.60-1.30 Serum or plasma urea nitrogen/creatinine mass ratio 11 [facility] Serum or plasma creatinine measurement with calculation of estimated glomerular filtration rate 12 [facility] Serum or plasma glucose measurement (mass/volume) 129 mg/dL 70-105 Serum or plasma calcium measurement (mass/volume) 8.7 mg/dL 8.5-10.1 Serum or plasma total bilirubin measurement (mass/volume) 0.4 mg/dL 0.1-1.0 Serum or plasma alkaline phosphatase measurement (enzymatic activity/volume) 63 U/L 40-136 Serum or plasma aspartate aminotransferase measurement (enzymatic activity/ volume) 29 U/L 5-34 Serum or plasma alanine aminotransferase measurement (enzymatic activity/volume ) 21 U/L 0-55 Serum or plasma protein measurement (mass/volume) 7.6 g/dL 6.4-8.2 Serum or plasma albumin measurement (mass/volume) 4.2 g/dL 3.2-4.5 Serum or plasma troponin i.cardiac measurement (mass/volume) - 09/29/16 18:52 Serum or plasma troponin i.cardiac measurement (mass/volume) < ng/mL <0.30 Capillary blood glucose measurement by glucometer (mass/volume) - 09/29/16 18: 55 Capillary blood glucose measurement by glucometer (mass/volume) 140 mg/dL 70-110 Arterial blood gas measurement - 09/29/16 18:59 Blood pCO2 38 mm[Hg] 35-45 Blood pO2 74 mm[Hg] 79-93 Arterial blood bicarbonate measurement (moles/volume) 20 mmol/L 23-27 Arterial blood base excess by calculation -4.3 mmol/L -2.5-2.5 Arterial blood oxygen saturation measurement 94 % 94-100 * Inhaled oxygen flow rate 3L NRG Arterial blood pH measurement with patient temperature correction 7.34 7.37-7.43 Arterial blood carbon dioxide, total measurement (moles/volume) 21.5 mmol/L 21.0-31.0 Body site RIGHT RADIAL NRG Assessment of wrist artery patency prior to arterial puncture YES-POS NRG Setting of ventilation mode NO NRG Measurement of body temperature 99.0 NRG Bacterial blood culture - 09/29/16 19:22 Bacterial blood culture NG NRG Complete urinalysis with reflex to culture - 09/29/16 19:34 Urine color determination YELLOW NRG Urine clarity determination CLEAR NRG Urine pH measurement by test strip 5 5- 9 Specific gravity of urine by test strip 1.025 1.016-1.022 Urine protein assay by test strip, semi-quantitative 2+ NEGATIVE Urine glucose detection by automated test strip NEGATIVE NEGATIVE Erythrocytes detection in urine sediment by light microscopy NEGATIVE NEGATIVE Urine ketones detection by automated test strip 1+ NEGATIVE Urine nitrite detection by test strip NEGATIVE NEGATIVE Urine total bilirubin detection by test strip 2+ NEGATIVE Urine urobilinogen measurement by automated test strip (mass/volume) NORMAL NORMAL Urine leukocyte esterase detection by dipstick 1+ NEGATIVE Automated urine sediment erythrocyte count by microscopy (number/high power field) NONE NRG Automated urine sediment leukocyte count by microscopy (number/high power field ) NONE NRG Bacteria detection in urine sediment by light microscopy TRACE NRG Squamous epithelial cells detection in urine sediment by light microscopy RARE NRG Crystals detection in urine sediment by light microscopy NONE NRG Casts detection in urine sediment by light microscopy PRESENT NRG Mucus detection in urine sediment by light microscopy NEGATIVE NRG Complete urinalysis with reflex to culture NO NRG Hyaline casts detection in urine sediment by light microscopy 25-50 NRG Serum or plasma lactate measurement (moles/volume) - 09/29/16 20:50 Serum or plasma lactate measurement (moles/volume) 1.23 mmol /L 0.50-2.00 Complete urinalysis with reflex to culture - 10/11/16 21:50 Urine color determination YELLOW NRG Urine clarity determination SLIGHTLY CLOUDY NRG Urine pH measurement by test strip 5 5- 9 Specific gravity of urine by test strip 1.020 1.016-1.022 Urine protein assay by test strip, semi-quantitative 2+ NEGATIVE Urine glucose detection by automated test strip NEGATIVE NEGATIVE Erythrocytes detection in urine sediment by light microscopy 1+ NEGATIVE Urine ketones detection by automated test strip NEGATIVE NEGATIVE Urine nitrite detection by test strip POSITIVE NEGATIVE Urine total bilirubin detection by test strip NEGATIVE NEGATIVE Urine urobilinogen measurement by automated test strip (mass/volume) NORMAL NORMAL Urine leukocyte esterase detection by dipstick 2+ NEGATIVE Automated urine sediment erythrocyte count by microscopy (number/high power field) [HPF] NRG Automated urine sediment leukocyte count by microscopy (number/high power field ) > [HPF] NRG Bacteria detection in urine sediment by light microscopy LARGE NRG Squamous epithelial cells detection in urine sediment by light microscopy 10-25 NRG Crystals detection in urine sediment by light microscopy NONE NRG Casts detection in urine sediment by light microscopy NONE NRG Mucus detection in urine sediment by light microscopy NEGATIVE NRG Complete urinalysis with reflex to culture YES NRG Bacterial urine culture - 10/11/16 21:50 Bacterial urine culture FOOTNOTE NRG Complete blood count (CBC) with automated white blood cell (WBC) differential - 11/06/16 13:43 Blood leukocytes automated count (number/volume) 8.9 10*3/ uL 4.3-11.0 Blood erythrocytes automated count (number/volume) 4.18 10*6 /uL 4.35-5.85 Venous blood hemoglobin measurement (mass/volume) 9.7 g/dL 13.3-17.7 Blood hematocrit (volume fraction) 31 % 40-54 Automated erythrocyte mean corpuscular volume 73 [foz_us] 80-99 Automated erythrocyte mean corpuscular hemoglobin (mass per erythrocyte) 23 pg 25-34 Automated erythrocyte mean corpuscular hemoglobin concentration measurement ( mass/volume) 32 g/dL 32-36 Automated erythrocyte distribution width ratio 21.4 % 10.0-14.5 Automated blood platelet count (count/volume) 318 10*3/uL 130-400 Automated blood platelet mean volume measurement 10.3 [foz_ us] 7.4-10.4 Automated blood neutrophils/100 leukocytes 68 % 42-75 Automated blood lymphocytes/100 leukocytes 21 % 12-44 Blood monocytes/100 leukocytes 9 % 0-12 Automated blood eosinophils/100 leukocytes 2 % 0-10 Automated blood basophils/100 leukocytes 0 % 0-10 Blood neutrophils automated count (number/volume) 6.1 10*3 1.8-7.8 Blood lymphocytes automated count (number/volume) 1.9 10*3 1.0-4.0 Blood monocytes automated count (number/volume) 0.8 10*3 0.0-1.0 Automated eosinophil count 0.2 10*3/uL 0.0-0.3 Automated blood basophil count (count/volume) 0.0 10*3/uL 0.0-0.1 Comprehensive metabolic panel - 11/06/16 13:43 Serum or plasma sodium measurement (moles/volume) 132 mmol/ L 135-145 Serum or plasma potassium measurement (moles/volume) 3.8 mmol/L 3.6-5.0 Serum or plasma chloride measurement (moles/volume) 101 mmol /L 98-107 Carbon dioxide 20 mmol/L 21-32 Serum or plasma anion gap determination (moles/volume) 11 mmol/L 5-14 Serum or plasma urea nitrogen measurement (mass/volume) 11 mg/dL 7-18 Serum or plasma creatinine measurement (mass/volume) 1.13 mg /dL 0.60-1.30 Serum or plasma urea nitrogen/creatinine mass ratio 10 NRG Serum or plasma creatinine measurement with calculation of estimated glomerular filtration rate > NRG Serum or plasma glucose measurement (mass/volume) 311 mg/dL 70-105 Serum or plasma calcium measurement (mass/volume) 8.4 mg/dL 8.5-10.1 Serum or plasma total bilirubin measurement (mass/volume) 0.2 mg/dL 0.1-1.0 Serum or plasma alkaline phosphatase measurement (enzymatic activity/volume) 97 U/L 40-136 Serum or plasma aspartate aminotransferase measurement (enzymatic activity/ volume) 24 U/L 5-34 Serum or plasma alanine aminotransferase measurement (enzymatic activity/volume ) 26 U/L 0-55 Serum or plasma protein measurement (mass/volume) 6.9 g/dL 6.4-8.2 Serum or plasma albumin measurement (mass/volume) 3.9 g/dL 3.2-4.5 Complete urinalysis with reflex to culture - 11/06/16 14:20 Urine color determination YELLOW NRG Urine clarity determination CLEAR NRG Urine pH measurement by test strip 5 5- 9 Specific gravity of urine by test strip 1.015 1.016-1.022 Urine protein assay by test strip, semi-quantitative 1+ NEGATIVE Urine glucose detection by automated test strip 3+ NEGATIVE Erythrocytes detection in urine sediment by light microscopy 1+ NEGATIVE Urine ketones detection by automated test strip NEGATIVE NEGATIVE Urine nitrite detection by test strip POSITIVE NEGATIVE Urine total bilirubin detection by test strip NEGATIVE NEGATIVE Urine urobilinogen measurement by automated test strip (mass/volume) NORMAL NORMAL Urine leukocyte esterase detection by dipstick 2+ NEGATIVE Automated urine sediment erythrocyte count by microscopy (number/high power field) RARE NRG Automated urine sediment leukocyte count by microscopy (number/high power field ) [HPF] NRG Bacteria detection in urine sediment by light microscopy LARGE NRG Squamous epithelial cells detection in urine sediment by light microscopy 0-2 NRG Crystals detection in urine sediment by light microscopy NONE NRG Casts detection in urine sediment by light microscopy NONE NRG Mucus detection in urine sediment by light microscopy NEGATIVE NRG Complete urinalysis with reflex to culture YES NRG Bacterial urine culture - 11/06/16 14:20 Bacterial urine culture [id number] NRG COLONY COUNT >100,000/ML NRG FTX;REPORTABLE SENSITIVITY REPORTED 11/07/16 16:20 NR Bacterial susceptibility panel - 11/06/16 14:20 Gentamicin susceptibility test by minimum inhibitory concentration <= NRG Trimethoprim/sulfamethoxazole susceptibility test by minimum inhibitoryconcentration >= NRG Ampicillin susceptibility test by minimum inhibitory concentration >= NRG Tobramycin susceptibility test by minimum inhibitory concentration <= NRG Cefazolin susceptibility test by minimum inhibitory concentration <= NRG Ceftriaxone susceptibility test by minimum inhibitory concentration <= NRG Ampicillin/sulbactam susceptibility test by minimum inhibitory concentration >= NRG Piperacillin/tazobactam susceptibility test by minimum inhibitory concentration <= NRG Ciprofloxacin susceptibility test by minimum inhibitory concentration >= NRG Meropenem susceptibility test by minimum inhibitory concentration <= NRG Nitrofurantoin susceptibility test by minimum inhibitory concentration <= NRG Aztreonam susceptibility test by minimum inhibitory concentration <= NRG Extended spectrum beta lactamase (ESBL) producing bacteria susceptibility test by minimum inhibitory concentration - NRG Complete blood count (CBC) with automated white blood cell (WBC) differential - 11/10/16 20:11 Blood leukocytes automated count (number/volume) 20.3 10*3/ uL 4.3-11.0 Blood erythrocytes automated count (number/volume) 4.38 10*6 /uL 4.35-5.85 Venous blood hemoglobin measurement (mass/volume) 10.4 g/dL 13.3-17.7 Blood hematocrit (volume fraction) 32 % 40-54 Automated erythrocyte mean corpuscular volume 74 [foz_us] 80-99 Automated erythrocyte mean corpuscular hemoglobin (mass per erythrocyte) 24 pg 25-34 Automated erythrocyte mean corpuscular hemoglobin concentration measurement ( mass/volume) 32 g/dL 32-36 Automated erythrocyte distribution width ratio 21.9 % 10.0-14.5 Automated blood platelet count (count/volume) 353 10*3/uL 130-400 Automated blood platelet mean volume measurement 9.6 [foz_us ] 7.4-10.4 Automated blood neutrophils/100 leukocytes 79 % 42-75 Automated blood lymphocytes/100 leukocytes 9 % 12-44 Blood monocytes/100 leukocytes 11 % 0-12 Automated blood eosinophils/100 leukocytes 1 % 0-10 Automated blood basophils/100 leukocytes 0 % 0-10 Blood neutrophils automated count (number/volume) 16.1 10*3 1.8-7.8 Blood lymphocytes automated count (number/volume) 1.7 10*3 1.0-4.0 Blood monocytes automated count (number/volume) 2.2 10*3 0.0-1.0 Automated eosinophil count 0.3 10*3/uL 0.0-0.3 Automated blood basophil count (count/volume) 0.0 10*3/uL 0.0-0.1 Blood manual differential performed detection - 11/10/16 20:11 Blood monocytes/100 leukocytes 8 % NRG Manual blood segmented neutrophils/100 leukocytes 72 % NRG Blood band neutrophils/100 leukocytes 3 % NRG Manual blood lymphocytes/100 leukocytes 14 % NRG Manual eosinophils/100 leukocytes in nose 3 % NRG Manual blood basophils/100 leukocytes 0 % NRG Blood erythrocyte morphology finding identification NORMAL NRG Whole blood basic metabolic panel - 11/10/16 20:11 Serum or plasma sodium measurement (moles/volume) 133 mmol/ L 135-145 Serum or plasma potassium measurement (moles/volume) 3.9 mmol/L 3.6-5.0 Serum or plasma chloride measurement (moles/volume) 100 mmol /L 98-107 Carbon dioxide 21 mmol/L 21-32 Serum or plasma anion gap determination (moles/volume) 12 mmol/L 5-14 Serum or plasma urea nitrogen measurement (mass/volume) 11 mg/dL 7-18 Serum or plasma creatinine measurement (mass/volume) 1.08 mg /dL 0.60-1.30 Serum or plasma urea nitrogen/creatinine mass ratio 10 NRG Serum or plasma creatinine measurement with calculation of estimated glomerular filtration rate > NRG Serum or plasma glucose measurement (mass/volume) 105 mg/dL 70-105 Serum or plasma calcium measurement (mass/volume) 8.4 mg/dL 8.5-10.1 Bacterial blood culture - 11/10/16 20:46 Bacterial blood culture NG NRG Complete urinalysis with reflex to culture - 11/10/16 21:42 Urine color determination OTHER NRG Urine clarity determination CLEAR NRG Urine pH measurement by test strip 5 5- 9 Specific gravity of urine by test strip 1.015 1.016-1.022 Urine protein assay by test strip, semi-quantitative 1+ NEGATIVE Urine glucose detection by automated test strip NEGATIVE NEGATIVE Erythrocytes detection in urine sediment by light microscopy NEGATIVE NEGATIVE Urine ketones detection by automated test strip NEGATIVE NEGATIVE Urine nitrite detection by test strip POSITIVE NEGATIVE Urine total bilirubin detection by test strip NEGATIVE NEGATIVE Urine urobilinogen measurement by automated test strip (mass/volume) 4 mg/dL NORMAL Urine leukocyte esterase detection by dipstick 1+ NEGATIVE Automated urine sediment erythrocyte count by microscopy (number/high power field) NONE NRG Automated urine sediment leukocyte count by microscopy (number/high power field ) [HPF] NRG Bacteria detection in urine sediment by light microscopy NONE NRG Squamous epithelial cells detection in urine sediment by light microscopy 0-2 NRG Crystals detection in urine sediment by light microscopy NONE NRG Casts detection in urine sediment by light microscopy NONE NRG Mucus detection in urine sediment by light microscopy NEGATIVE NRG Complete urinalysis with reflex to culture YES NRG Urine drug screening test - 11/10/16 21:42 Urine phencyclidine detection by screening method NEGATIVE NEGATIVE Urine benzodiazepines detection by screening method NEGATIVE NEGATIVE Urine cocaine detection NEGATIVE NEGATIVE Urine amphetamines detection by screening method NEGATIVE NEGATIVE Urine methamphetamine detection by screening method NEGATIVE NEGATIVE Urine cannabinoids detection by screening method NEGATIVE NEGATIVE Urine opiates detection by screening method POSITIVE NEGATIVE Urine barbiturates detection NEGATIVE NEGATIVE Screening urine tricyclic antidepressants detection POSITIVE NEGATIVE Urine methadone detection by screening method NEGATIVE NEGATIVE Urine oxycodone detection NEGATIVE NEGATIVE Urine propoxyphene detection NEGATIVE NEGATIVE Bacterial urine culture - 11/10/16 21:42 Bacterial urine culture [id number] NRG COLONY COUNT <10,000 NRG FTX;REPORTABLE SENSITIVITY REPORTED AT 1255, 4-24-17 NRG Bacterial susceptibility panel - 11/10/16 21:42 Gentamicin susceptibility test by minimum inhibitory concentration S NRG Vancomycin susceptibility test by minimum inhibitory concentration >= NRG Levofloxacin susceptibility test by minimum inhibitory concentration >= NRG Tetracycline susceptibility test by minimum inhibitory concentration >= NRG Ampicillin susceptibility test by minimum inhibitory concentration >= NRG Ciprofloxacin susceptibility test by minimum inhibitory concentration R NRG Nitrofurantoin susceptibility test by minimum inhibitory concentration 64 NRG Linezolid susceptibility test by minimum inhibitory concentration 2 NRG Blood lactic acid measurement (moles/volume) - 11/10/16 22:40 Blood lactic acid measurement (moles/volume) 1.78 mmol/L 0.50-2.00 Bacterial blood culture - 11/10/16 22:40 Bacterial blood culture NG NRG Complete blood count (CBC) with automated white blood cell (WBC) differential - 11/11/16 13:05 Blood leukocytes automated count (number/volume) 15.6 10*3/ uL 4.3-11.0 Blood erythrocytes automated count (number/volume) 4.40 10*6 /uL 4.35-5.85 Venous blood hemoglobin measurement (mass/volume) 10.4 g/dL 13.3-17.7 Blood hematocrit (volume fraction) 32 % 40-54 Automated erythrocyte mean corpuscular volume 74 [foz_us] 80-99 Automated erythrocyte mean corpuscular hemoglobin (mass per erythrocyte) 24 pg 25-34 Automated erythrocyte mean corpuscular hemoglobin concentration measurement ( mass/volume) 32 g/dL 32-36 Automated erythrocyte distribution width ratio 22.2 % 10.0-14.5 Automated blood platelet count (count/volume) 335 10*3/uL 130-400 Automated blood platelet mean volume measurement 9.6 [foz_us ] 7.4-10.4 Automated blood neutrophils/100 leukocytes 80 % 42-75 Automated blood lymphocytes/100 leukocytes 11 % 12-44 Blood monocytes/100 leukocytes 7 % 0-12 Automated blood eosinophils/100 leukocytes 2 % 0-10 Automated blood basophils/100 leukocytes 0 % 0-10 Blood neutrophils automated count (number/volume) 12.5 10*3 1.8-7.8 Blood lymphocytes automated count (number/volume) 1.7 10*3 1.0-4.0 Blood monocytes automated count (number/volume) 1.0 10*3 0.0-1.0 Automated eosinophil count 0.3 10*3/uL 0.0-0.3 Automated blood basophil count (count/volume) 0.0 10*3/uL 0.0-0.1 Comprehensive metabolic panel - 11/11/16 13:05 Serum or plasma sodium measurement (moles/volume) 135 mmol/ L 135-145 Serum or plasma potassium measurement (moles/volume) 3.9 mmol/L 3.6-5.0 Serum or plasma chloride measurement (moles/volume) 101 mmol /L 98-107 Carbon dioxide 21 mmol/L 21-32 Serum or plasma anion gap determination (moles/volume) 13 mmol/L 5-14 Serum or plasma urea nitrogen measurement (mass/volume) 9 mg /dL 7-18 Serum or plasma creatinine measurement (mass/volume) 0.91 mg /dL 0.60-1.30 Serum or plasma urea nitrogen/creatinine mass ratio 10 NRG Serum or plasma creatinine measurement with calculation of estimated glomerular filtration rate > NRG Serum or plasma glucose measurement (mass/volume) 85 mg/dL 70-105 Serum or plasma calcium measurement (mass/volume) 9.1 mg/dL 8.5-10.1 Serum or plasma total bilirubin measurement (mass/volume) 0.5 mg/dL 0.1-1.0 Serum or plasma alkaline phosphatase measurement (enzymatic activity/volume) 81 U/L 40-136 Serum or plasma aspartate aminotransferase measurement (enzymatic activity/ volume) 26 U/L 5-34 Serum or plasma alanine aminotransferase measurement (enzymatic activity/volume ) 15 U/L 0-55 Serum or plasma protein measurement (mass/volume) 7.4 g/dL 6.4-8.2 Serum or plasma albumin measurement (mass/volume) 3.9 g/dL 3.2-4.5 Serum or plasma C reactive protein measurement (mass/volume) - 11/11/16 13:05 Serum or plasma C reactive protein measurement (mass/volume) 15.03 mg/dL 0.00-0.50 Complete blood count (CBC) with automated white blood cell (WBC) differential - 01/26/17 17:08 Blood leukocytes automated count (number/volume) 9.1 10*3/ uL 4.3-11.0 Blood erythrocytes automated count (number/volume) 4.63 10*6 /uL 4.35-5.85 Venous blood hemoglobin measurement (mass/volume) 10.5 g/dL 13.3-17.7 Blood hematocrit (volume fraction) 34 % 40-54 Automated erythrocyte mean corpuscular volume 74 [foz_us] 80-99 Automated erythrocyte mean corpuscular hemoglobin (mass per erythrocyte) 23 pg 25-34 Automated erythrocyte mean corpuscular hemoglobin concentration measurement ( mass/volume) 31 g/dL 32-36 Automated erythrocyte distribution width ratio 18.6 % 10.0-14.5 Automated blood platelet count (count/volume) 289 10*3/uL 130-400 Automated blood platelet mean volume measurement 9.8 [foz_us ] 7.4-10.4 Automated blood neutrophils/100 leukocytes 57 % 42-75 Automated blood lymphocytes/100 leukocytes 26 % 12-44 Blood monocytes/100 leukocytes 13 % 0-12 Automated blood eosinophils/100 leukocytes 3 % 0-10 Automated blood basophils/100 leukocytes 1 % 0-10 Blood neutrophils automated count (number/volume) 5.2 10*3 1.8-7.8 Blood lymphocytes automated count (number/volume) 2.3 10*3 1.0-4.0 Blood monocytes automated count (number/volume) 1.2 10*3 0.0-1.0 Automated eosinophil count 0.3 10*3/uL 0.0-0.3 Automated blood basophil count (count/volume) 0.1 10*3/uL 0.0-0.1 Comprehensive metabolic panel - 01/26/17 17:08 Serum or plasma sodium measurement (moles/volume) 132 mmol/ L 135-145 Serum or plasma potassium measurement (moles/volume) 4.4 mmol/L 3.6-5.0 Serum or plasma chloride measurement (moles/volume) 101 mmol /L 98-107 Carbon dioxide 22 mmol/L 21-32 Serum or plasma anion gap determination (moles/volume) 9 mmol/L 5-14 Serum or plasma urea nitrogen measurement (mass/volume) 9 mg /dL 7-18 Serum or plasma creatinine measurement (mass/volume) 0.98 mg /dL 0.60-1.30 Serum or plasma urea nitrogen/creatinine mass ratio 9 NRG Serum or plasma creatinine measurement with calculation of estimated glomerular filtration rate > NRG Serum or plasma glucose measurement (mass/volume) 117 mg/dL 70-105 Serum or plasma calcium measurement (mass/volume) 9.5 mg/dL 8.5-10.1 Serum or plasma total bilirubin measurement (mass/volume) 0.4 mg/dL 0.1-1.0 Serum or plasma alkaline phosphatase measurement (enzymatic activity/volume) 70 U/L 40-136 Serum or plasma aspartate aminotransferase measurement (enzymatic activity/ volume) 24 U/L 5-34 Serum or plasma alanine aminotransferase measurement (enzymatic activity/volume ) 20 U/L 0-55 Serum or plasma protein measurement (mass/volume) 7.6 g/dL 6.4-8.2 Serum or plasma albumin measurement (mass/volume) 4.3 g/dL 3.2-4.5 Complete urinalysis with reflex to culture - 01/26/17 17:40 Urine color determination YELLOW NRG Urine clarity determination CLEAR NRG Urine pH measurement by test strip 6 5- 9 Specific gravity of urine by test strip 1.010 1.016-1.022 Urine protein assay by test strip, semi-quantitative 1+ NEGATIVE Urine glucose detection by automated test strip NEGATIVE NEGATIVE Erythrocytes detection in urine sediment by light microscopy NEGATIVE NEGATIVE Urine ketones detection by automated test strip NEGATIVE NEGATIVE Urine nitrite detection by test strip NEGATIVE NEGATIVE Urine total bilirubin detection by test strip NEGATIVE NEGATIVE Urine urobilinogen measurement by automated test strip (mass/volume) NORMAL NORMAL Urine leukocyte esterase detection by dipstick 1+ NEGATIVE Automated urine sediment erythrocyte count by microscopy (number/high power field) NONE NRG Automated urine sediment leukocyte count by microscopy (number/high power field ) [HPF] NRG Bacteria detection in urine sediment by light microscopy NEGATIVE NRG Squamous epithelial cells detection in urine sediment by light microscopy 10-25 NRG Crystals detection in urine sediment by light microscopy NONE NRG Casts detection in urine sediment by light microscopy NONE NRG Mucus detection in urine sediment by light microscopy NEGATIVE NRG Complete urinalysis with reflex to culture NO NRG Encounters ACCT No. Visit Date/Time Discharge Status Pt. Type Provider Facility Loc./Unit Complaint [id number] 01/26/2017 14:58:00 2016 18:39:00 DIS Emergency PILAR BUSTOS, ALEX James [facility] ER NECK PAIN [id number] 11/10/2016 19:44:00 2016 22:44:00 DIS Emergency KAYE CHAMBERLAIN APRN [facility] ER L SIDE RIB PAIN [id number] 09/29/2016 17:53:00 2016 22:18:00 DIS Emergency DREW BUSTOS, SAUNDRA Camacho [facility] ER WHEEZING [id number] 05/31/2016 12:39:00 2015 11:51:00 DIS Outpatient ALEJANDRO GERONIMO MD [facility] REHAB VENOUS STASIS [id number] 04/10/2016 09:12:00 2015 10:30:00 DIS Inpatient JONATHAN MCDOWELL MD [facility] ICU FALL VS SYNCOPE CHEST PAIN LOSS OF CONSCIOUSNESS [id number] 12/23/2015 17:30:00 2015 07:52:00 DIS Inpatient CLARENCE COLVIN DO [facility] 4TH LEUKOATSOSIS,DIARRHEA,SUSPECT C.DIFF [id number] 10/12/2014 15:13:00 2014 23:59:59 CLS Outpatient MERVIN JOY MD [facility] RT TOBACCOISM SHORTNESS OF AIR [id number] 08/13/2014 07:21:00 2014 11:00:00 DIS Outpatient ALESSANDRO REY MD [facility] SDC GERD,SORE THROAT [id number] 08/12/2014 05:59:00 2014 23:59:59 CLS Outpatient ALESSANDRO REY MD [facility] PREOP GERD [id number] 08/07/2014 15:42:00 2014 23:59:59 CLS Outpatient CANDIDO BUSTOS, ALESSANDRO Vogel [facility] RAD EPIGASTRIC PAIN [id number] 04/14/2014 13:03:00 2013 13:55:00 DIS Outpatient TERRI BUSTOS, EDER Tobin [facility] REHAB CERVICALGIA [id number] 02/16/2014 12:10:00 2013 23:59:59 CLS Outpatient RUFINO BUSTOS, MERVIN Dukes [facility] RAD C-SPINE PAIN, UPPER EXT NUMBNESS AND WEAKNESS [id number] 12/02/2012 02:54:00 2012 03:14:00 DIS Emergency JUSTEN BUSTOS, SHOAIB Panchal [facility] ER LOWER ABD PAIN [id number] 11/11/2016 12:52:00 ACT Outpatient MICHELLE VERNON DO [facility] LAB LEUKOCYTOSIS, URINARY TRACT INFECTION [id number] 11/06/2016 12:53:00 ACT Emergency KAYE CHAMBERLAIN BLASTING ENTRYMAN [facility] ER LOWER ABD/GROIN PAIN [id number] 10/11/2016 21:50:00 ACT Outpatient GRAZYNA BUSTOS, ALEJANDRO Rahman [facility] CVS C/O URETHRAL PAIN, URINARY FREQUENCY [id number] 10/08/2014 08:13:00 Document Registration [id number] 10/01/2014 07:11:00 Document Registration [id number] 09/30/2014 06:01:00 Document Registration [id number] 08/30/2012 06:50:00 Document Registration [id number] 08/26/2012 13:11:00 Document Registration [id number] 05/04/2012 19:27:00 Document Registration [id number] 04/14/2010 10:26:00 Document Registration [id number] 09/08/2009 09:31:00 Document Registration
== END 2017-01-26 18:39 | disposition home or self-care (01) ==
LOC: EDUNIT# 14:55 → ER 14:58
DX: M54.2 Cervicalgia (principal); F41.9 Anxiety disorder, unspecified; F32.9 Major depressive disorder, single episode, unspecified; M47.9 Spondylosis, unspecified; K21.9 Gastro-esophageal reflux disease without esophagitis; N40.0 Benign prostatic hyperplasia without lower urinary tract symptoms; G20 Parkinson's disease; J44.9 Chronic obstructive pulmonary disease, unspecified; I10 Essential (primary) hypertension; E78.00 Pure hypercholesterolemia, unspecified; Z86.718 Personal history of other venous thrombosis and embolism; Z79.82 Long term (current) use of aspirin; Z79.84 Long term (current) use of oral hypoglycemic drugs; Z86.73 Personal history of transient ischemic attack (TIA), and cerebral infarction without residual deficits
CPT/HCPCS: 36415; 70450; 72125; 80053; 81000; 85025; 96372; 99284

== ENCOUNTER 2017-03-12 17:15 | Emergency (ER) | payer MEDICARE, MEDICAID ==
[~2017-03-12] VITALS: Ht 170.2 cm; Wt 95.3 kg
[~2017-03-12 17:15] MED LIST changes: +CARB1TAB19
--- OUTSIDE RECORDS SUMMARY | 2017-03-12 17:26 | XMS REPORT | Clinical Summary ---
Author Author [facility] Organization [facility] Address Unknown Phone Unavailable Care Team Providers Care History Card Clerk Name Role Phone PCP Unavailable Source Comments Some departments are not documenting in the electronic medical record. If you do not see the information that you expected, contact Release of Information in the Health Information Management department at [phone] for further assistance in locating additional records.[facility] Allergies No Known Allergies Current Medications Prescription Sig. [...] Active Problems Problem Noted Date Antiphospholipid syndrome ([facility]) 08/26/2014 DVT (deep venous thrombosis) ([facility]) 07/22/2013 Immunizations Name Dates Previously Given Next Due Pneumococcal Vaccine 07/27/2010 (23-Diana Adult) Family History Medical History Relation Name Comments Arthritis Mother Arthritis Sister Relation Name Status Comments Mother Sister Social History Tobacco Use Types Packs/Day Years Used Date Current Every Day Smoker Cigarettes 2 40 Smokeless Tobacco: Never Used Alcohol Use Drinks/Week oz/Week Comments No Sex Assigned at Date Recorded Not on file Last Filed Vital Signs Vital Sign Reading Time Taken Blood Pressure 99/65 02/19/2015 12:59 PM CDT Pulse 50 02/19/2015 12:59 PM CDT Temperature 36.7 C (98 F) 02/19/2015 12:59 PM CDT Respiratory Rate 20 02/19/2015 12:59 PM CDT Oxygen Saturation 93% 12/04/2013 11:35 AM CDT Inhaled Oxygen - - Concentration Weight 99.1 kg (218 lb 6.4 oz) 02/19/2015 12:59 PM CDT Height 162.3 cm (5' 3.9") 02/19/2015 12:59 PM CDT Body Mass Index 37.61 02/19/2015 12:59 PM CDT Plan of Treatment Health Maintenance Due Date Last Done Comments HEPATITIS C SCREENING 1951 PHYSICAL (COMPREHENSIVE) 1958 EXAM PERTUSSIS VACCINE 1962 TETANUS VACCINE 1968 COLORECTAL CANCER 2001 SCREENING SHINGLES VACCINE 2011 ABDOMINAL AORTIC ANEURYSM 2016 SCREENING PREVNAR/PNEUMOVAX (#1) 2016 07/27/2010 INFLUENZA VACCINE 03/23/2017 Results Not on filefrom Last 3 Months
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
[2017-03-12 18:01] VITALS: BP 163/99
== END 2017-03-12 18:01 | disposition home or self-care (01) ==
LOC: EDUNIT# 17:15 → ER 17:17
DX: S92.421A Displaced fracture of distal phalanx of right great toe, initial encounter for closed fracture (principal); J44.9 Chronic obstructive pulmonary disease, unspecified; E78.00 Pure hypercholesterolemia, unspecified; I10 Essential (primary) hypertension; R60.9 Edema, unspecified; G20 Parkinson's disease; E11.40 Type 2 diabetes mellitus with diabetic neuropathy, unspecified; N40.0 Benign prostatic hyperplasia without lower urinary tract symptoms; F32.9 Major depressive disorder, single episode, unspecified; F41.9 Anxiety disorder, unspecified; Z79.82 Long term (current) use of aspirin; Z79.84 Long term (current) use of oral hypoglycemic drugs; Z87.891 Personal history of nicotine dependence; Z86.718 Personal history of other venous thrombosis and embolism; Z86.73 Personal history of transient ischemic attack (TIA), and cerebral infarction without residual deficits; Z87.828 Personal history of other (healed) physical injury and trauma; Z87.81 Personal history of (healed) traumatic fracture; X58.XXXA Exposure to other specified factors, initial encounter
CPT/HCPCS: 73630; 99281

== ENCOUNTER 2017-07-11 15:15 | Outpatient (RCR) | payer MEDICARE, MEDICAID ==
[~2017-07-11 15:15] MED LIST changes: +LOSA1TAB23; -LOSA1TAB70; +METO50TA15 PO; -METO50TA2 PO
== END 2017-07-19 15:44 | disposition home or self-care (01) ==
PROVIDERS: ATTEND Podiatrist Foot & Ankle Surgery
DX: R60.0 Localized edema (principal)

== ENCOUNTER 2018-02-11 14:27 | Emergency (ER) | payer MEDICARE, MEDICAID ==
[~2018-02-11] VITALS: Ht 165.1 cm; Wt 98.0 kg
[~2018-02-11 14:27] MED LIST changes: +ACET-77 PO; +ATOR10TA66 PO; +CARB1TAB6 PO; +DILT180C82 PO; +ESZO2TAB4 PO; +HYDROCORTISONE 100 MG/2 ML (Solu-CORTEF) VIAL ONE; +IBUP-2055 PO; +LISI-556 PO; -METF500T4 PO; +METF500T5 PO; +METO100T12 PO; +NOREPINEPHRINE 4 MG/4 ML (LEVOPHED) AMP IV ONE; +NS (IVPB) 250 ML ONE; +OMEP20CA12 PO; +PREG100C PO; +RIVA20TA PO; +TORS20TA3 PO
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
--- OUTSIDE RECORDS SUMMARY | 2018-02-11 14:33 | XMS REPORT | Clinical Summary ---
Author Author [facility] Organization [facility] Address Unknown Phone Unavailable Care Team Providers Care Tool Chaser Name Role Phone Harshad Umaña MD Unavailable Corby Chang MD Unavailable Macario Stone MD Unavailable Reena Landon MD PCP Source Comments Some departments are not documenting in the electronic medical record. 

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
--- OUTSIDE RECORDS SUMMARY | 2018-02-11 14:35 | XMS REPORT ---
Author Author ALEJANDRO GERONIMO [facility] Address [address] [place] [address] Care Team Providers Care Hi Lo Driver Name Role Phone ALEJANDRO GERONIMO Unavailable PROBLEMS Type Condition ICD9-CM Code NOZ42-LL Code Onset Dates Condition Status SNOMED Code Problem Hammer toe of left foot M20.42 Active 685126910 Problem Leukocytosis D72.829 Active 030938637 Problem Nicotine dependence, cigarettes, uncomplicated F17.210 Active 535684809 Problem Overactive bladder N32.81 Active 692724449 Problem Diarrhea, unspecified type R19.7 Active 71589141 Problem Chronic obstructive pulmonary disease, unspecified COPD type J44.9 Active 77797587 Problem OAB (overactive bladder) N32.81 Active 370594871 Problem Hypercholesterolemia E78.00 Active 06724446 Problem Lymphedema I89.0 Active 501782543 Problem Essential hypertension I10 Active 33445199 Problem Lupus (systemic lupus erythematosus) M32.9 Active 82455480 Problem Type 2 diabetes mellitus 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, unspecified fci insulin use status E11.9 Active 40733536 Problem Parkinsons disease G20 Active 41919147 Problem Neuropathy G62.9 Active 626901675 Problem Rosacea L71.9 Active 016424528 Problem Venous stasis I87.8 Active 61815512 Problem Gastroesophageal reflux disease, esophagitis presence not specified K21.9 Active 642065350 ALLERGIES Substance Reaction Event Type Date Status N.K.D.A. Unknown Non Drug Allergy Jun, Unknown SOCIAL HISTORY No smoking Hx information available PLAN OF CARE Activity Details Follow Up 3 Months Reason: VITAL SIGNS Height 66 in 2016-07-20 Weight 210.7 lbs 2016-07-20 Temperature 97.8 degrees Fahrenheit 2016-07-20 Heart Rate 58 bpm 2016-07-20 Respiratory Rate 20 2016-07-20 BMI 34.00 kg/m2 2016-07-20 Blood pressure systolic 118 mmHg 2016-07-20 Blood pressure diastolic 62 mmHg 2016-07-20 MEDICATIONS Medication Instructions Dosage Frequency Start Date End Date Duration Status Albuterol Sulfate HFA 108 (90 Base) MCG/ACT Inhalation every 4 hrs 2 puffs as needed 4h Active Oxybutynin Chloride 5 MG Orally Twice a day 1 tablet 12h Active Losartan Potassium 100 MG Orally Once a day 1 tablet 24h Active Cardizem CD 240 MG Orally Once a day 1 capsule 24h Active Dexilant 60 MG Orally Once a day 1 capsule 24h Active Gabapentin 600 MG Orally Three times a day 1 capsule 8h Active Simvastatin 20 mg Orally Once a day 1 tablet in the evening 24h Active Incruse Ellipta 62.5 MCG/INH Inhalation Once a day 1 puff 24h Active Hydroxychloroquine Sulfate 200 Orally twice a day 1 tablet with food or milk 12h 15 Active Symbicort 80-4.5 MCG/ACT Inhalation Twice a day 2 puffs 12h Active Hydrocortisone Acetate 2 % Externally Once a day 1 application to affected area 24h Jun, Dec, 60 days Active Diabetic Shoes ... wear daily Apr, Active Sinemet 25-100 MG Orally Three times a day 1 tablet 8h May, 30 day(s) Active Amitriptyline HCl 25 MG Orally Once a day 1 tablet 24h Active Hydroxychloroquine Sulfate 200 mg Orally twice a day 1 tablet with food or milk 12h Active Ropinirole HCl 0.5 MG Orally 2 times a day 1 12h May, 0 days Active Baclofen 10 mg Orally every 8 hrs as needed 1 tablet with food or milk Active Metoprolol Tartrate 50 mg Orally Twice a day 1 tablet with food 12h Active Metformin HCl 500 MG Orally Twice a day 1 tablet with meals 12h Active Flonase 2 sprays 12h Active Klor-Con M20 20 MEQ Orally Once a day 1 tablet with food 24h Active Morphine-Naltrexone 60-2.4 MG Orally Once a day 1 capsule 24h Mar, Jul, 28 days Active Xarelto 20 mg Orally Once a day 1 tablet with food 24h Active RESULTS No Results PROCEDURES Procedure Date Ordered Related Diagnosis Body Site [facility] VISIT ESTABLISHED PATIENT Jul 20, 2016 Office Visit, Est Pt., Level 3 Jul 20, 2016 IMMUNIZATIONS No Known Immunizations
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
[2018-02-11] MEDS ORDERED: NS IV 1000 ML 1,000 ML IV SCH (14:36)
[2018-02-11] MEDS ORDERED: NS IV 1000 ML 1,000 ML ONE (14:36)
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
--- OUTSIDE RECORDS SUMMARY | 2018-02-11 14:36 | XMS REPORT ---
Author Author DAVID HERRERA Organization [facility] Address [address] [place] [address] Care Team Providers Care Real Estate Accountant Name Role Phone HERRERA DAVID Unavailable PROBLEMS Type Condition ICD9-CM Code [id number] Code Onset Dates Condition Status SNOMED Code Problem Hammer toe of left foot M20.42 Active 331797947 Problem Leukocytosis D72.829 Active 538064264 Problem Nicotine dependence, cigarettes, uncomplicated F17.210 Active 391570435 Problem Overactive bladder N32.81 Active 272199673 Problem Lymphedema I89.0 Active 779843826 Problem Diarrhea, unspecified type R19.7 Active 70858173 Problem Hypercholesterolemia E78.00 Active 02822407 Problem Chronic obstructive pulmonary disease, unspecified COPD type J44.9 Active 00372236 Problem OAB (overactive bladder) N32.81 Active 296255403 Problem Essential hypertension I10 Active 83176900 Problem Lupus (systemic lupus erythematosus) M32.9 Active 75199059 Problem Venous stasis I87.8 Active 71077780 Problem Type 2 diabetes mellitus 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, unspecified detention insulin use status E11.9 Active 20879721 Problem Neuropathy G62.9 Active 215895082 Problem Rosacea L71.9 Active 944202116 Problem Parkinsons disease G20 Active 84906649 Problem Gastroesophageal reflux disease, esophagitis presence not specified K21.9 Active 278827760 ALLERGIES Unknown Allergies SOCIAL HISTORY No smoking Hx information available PLAN OF CARE VITAL SIGNS MEDICATIONS Medication Instructions Dosage Frequency Start Date End Date Duration Status Morphine-Naltrexone 60-2.4 MG Orally Once a day 1 capsule 24h 30 Mar, 2016 Aug, 28 days Active RESULTS No Results PROCEDURES No Known procedures IMMUNIZATIONS No Known Immunizations
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
--- OUTSIDE RECORDS SUMMARY | 2018-02-11 14:37 | XMS REPORT ---
Author Author MISTY PEGUERO Organization [facility] Address [address] [place] [address] Care Team Providers Care High Lighter Name Role Phone MISTY PEGUERO Unavailable PROBLEMS Type Condition ICD9-CM Code DZP65-ZA Code Onset Dates Condition Status SNOMED Code Problem Hammer toe of left foot M20.42 Active 258465285 Problem Leukocytosis D72.829 Active 411931810 Problem Nicotine dependence, cigarettes, uncomplicated F17.210 Active 317057364 Problem Overactive bladder N32.81 Active 933241395 Problem Diarrhea, unspecified type R19.7 Active 63308826 Problem Chronic obstructive pulmonary disease, unspecified COPD type J44.9 Active 02978648 Problem OAB (overactive bladder) N32.81 Active 121989889 Problem Hypercholesterolemia E78.00 Active 96453537 Problem Lymphedema I89.0 Active 252931732 Problem Essential hypertension I10 Active 42242342 Problem Lupus (systemic lupus erythematosus) M32.9 Active 85245454 Problem Type 2 diabetes mellitus 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, unspecified senior care insulin use status E11.9 Active 00125545 Problem Parkinsons disease G20 Active 23757081 Problem Neuropathy G62.9 Active 892417980 Problem Rosacea L71.9 Active 086380773 Problem Venous stasis I87.8 Active 96227866 Problem Gastroesophageal reflux disease, esophagitis presence not specified K21.9 Active 120379442 ALLERGIES Unknown Allergies SOCIAL HISTORY No smoking Hx information available PLAN OF CARE VITAL SIGNS MEDICATIONS Medication Instructions Dosage Frequency Start Date End Date Duration Status Morphine-Naltrexone 60-2.4 MG Orally Once a day 1 capsule 24h 30 Mar, 2016 28 days Active RESULTS No Results PROCEDURES No Known procedures IMMUNIZATIONS No Known Immunizations
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
--- OUTSIDE RECORDS SUMMARY | 2018-02-11 14:37 | XMS REPORT ---
Author Author ALEJANDRO GERONIMO [facility] Address [address] [place] [address] Care Team Providers Care Heat Curer Name Role Phone ALEJANDRO GERONIMO Unavailable PROBLEMS Type Condition ICD9-CM Code STN97-ZI Code Onset Dates Condition Status SNOMED Code Problem Hammer toe of left foot M20.42 Active 431692824 Problem Leukocytosis D72.829 Active 660891420 Problem Nicotine dependence, cigarettes, uncomplicated F17.210 Active 081938680 Problem Overactive bladder N32.81 Active 873881870 Problem Lymphedema I89.0 Active 650023214 Problem Diarrhea, unspecified type R19.7 Active 00559269 Problem Hypercholesterolemia E78.00 Active 93661465 Problem Chronic obstructive pulmonary disease, unspecified COPD type J44.9 Active 63881592 Problem OAB (overactive bladder) N32.81 Active 543641777 Problem Essential hypertension I10 Active 79781627 Problem Lupus (systemic lupus erythematosus) M32.9 Active 30246055 Problem Venous stasis I87.8 Active 81682693 Problem Type 2 diabetes mellitus 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, unspecified group home insulin use status E11.9 Active 33454862 Problem Neuropathy G62.9 Active 016673434 Problem Rosacea L71.9 Active 655148786 Problem Parkinsons disease G20 Active 74390763 Problem Gastroesophageal reflux disease, esophagitis presence not specified K21.9 Active 065107305 ALLERGIES Substance Reaction Event Type Date Status N.K.D.A. Unknown Non Drug Allergy Jul, Unknown SOCIAL HISTORY No smoking Hx information available PLAN OF CARE Activity Details Follow Up 3 Months Reason: VITAL SIGNS Height 66 in 2016-08-22 Weight 214.7 lbs 2016-08-22 Temperature 98.3 degrees Fahrenheit 2016-08-22 Heart Rate 62 bpm 2016-08-22 Respiratory Rate 18 2016-08-22 BMI 34.65 kg/m2 2016-08-22 Blood pressure systolic 126 mmHg 2016-08-22 Blood pressure diastolic 68 mmHg 2016-08-22 MEDICATIONS Medication Instructions Dosage Frequency Start Date End Date Duration Status Oxybutynin Chloride 5 MG Orally Twice a day 1 tablet 12h Active Hydrocortisone Acetate 2 % Externally Once a day 1 application to affected area 24h Jun, 60 days Active Simvastatin 20 mg Orally Once a day 1 tablet in the evening 24h Active Amitriptyline HCl 25 MG Orally Once a day 1 tablet 24h Active Baclofen 10 mg Orally every 8 hrs as needed 1 tablet with food or milk Active Xarelto 20 mg Orally Once a day 1 tablet with food 24h Active Sinemet 25-100 MG Orally Three times a day 1 tablet 8h May, 30 day(s) Active Diabetic Shoes ... wear daily Apr, Active Ropinirole HCl 2 MG Orally 2 times a day 1 12h May, 0 days Active Morphine-Naltrexone 60-2.4 MG Orally Once a day 1 capsule 24h Mar, Aug, 28 days Active Gabapentin 600 MG Orally Three times a day 1 capsule 8h Active Metoprolol Tartrate 50 mg Orally Twice a day 1 tablet with food 12h Active Dexilant 60 MG Orally Once a day 1 capsule 24h Active Losartan Potassium 100 MG Orally Once a day 1 tablet 24h Active Metformin HCl 500 MG Orally Twice a day 1 tablet with meals 12h Active RESULTS No Results PROCEDURES Procedure Date Ordered Related Diagnosis Body Site [facility] VISIT ESTABLISHED PATIENT Aug 22, 2016 Office Visit, Jed Pt., Level 2 Aug 22, 2016 IMMUNIZATIONS No Known Immunizations
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
--- OUTSIDE RECORDS SUMMARY | 2018-02-11 14:38 | XMS REPORT ---
Author Author ALEJANDRO GERONIMO [facility] Address [address] [place] [address] Care Team Providers Care Regional Liaison Name Role Phone ALEJANDRO GERONIMO Unavailable PROBLEMS Type Condition ICD9-CM Code IGU64-TE Code Onset Dates Condition Status SNOMED Code Problem Hammer toe of left foot M20.42 Active 161369544 Problem Leukocytosis D72.829 Active 955024046 Problem Nicotine dependence, cigarettes, uncomplicated F17.210 Active 105341704 Problem Overactive bladder N32.81 Active 312637169 Problem Diarrhea, unspecified type R19.7 Active 04307712 Problem Chronic obstructive pulmonary disease, unspecified COPD type J44.9 Active 47774425 Problem OAB (overactive bladder) N32.81 Active 353179091 Problem Hypercholesterolemia E78.00 Active 28496313 Problem Lymphedema I89.0 Active 354190962 Problem Essential hypertension I10 Active 48159980 Problem Lupus (systemic lupus erythematosus) M32.9 Active 15165625 Problem Type 2 diabetes mellitus 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, unspecified terminal supervisor insulin use status E11.9 Active 74307842 Problem Parkinsons disease G20 Active 78848632 Problem Neuropathy G62.9 Active 319356598 Problem Rosacea L71.9 Active 163180004 Problem Venous stasis I87.8 Active 91640767 Problem Gastroesophageal reflux disease, esophagitis presence not specified K21.9 Active 232546569 ALLERGIES Unknown Allergies SOCIAL HISTORY No smoking Hx information available PLAN OF CARE VITAL SIGNS MEDICATIONS Medication Instructions Dosage Frequency Start Date End Date Duration Status Hydrocortisone Acetate 2 % Externally Once a day 1 application to affected area 24h Jun, 60 days Active RESULTS No Results PROCEDURES No Known procedures IMMUNIZATIONS No Known Immunizations
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
--- OUTSIDE RECORDS SUMMARY | 2018-02-11 14:40 | XMS REPORT ---
Author Author ALEJANDRO GERONIMO [facility] Address [address] [place] [address] Care Team Providers Care Land Manager Name Role Phone ALEJANDRO GERONIMO Unavailable PROBLEMS Type Condition ICD9-CM Code USE29-PT Code Onset Dates Condition Status SNOMED Code Problem Hammer toe of left foot M20.42 Active 812281559 Problem Leukocytosis D72.829 Active 074741940 Problem Nicotine dependence, cigarettes, uncomplicated F17.210 Active 003466234 Problem Overactive bladder N32.81 Active 986000811 Problem Diarrhea, unspecified type R19.7 Active 74464870 Problem Chronic obstructive pulmonary disease, unspecified COPD type J44.9 Active 90380478 Problem OAB (overactive bladder) N32.81 Active 782687082 Problem Hypercholesterolemia E78.00 Active 45828673 Problem Lymphedema I89.0 Active 597136359 Problem Essential hypertension I10 Active 88770287 Problem Lupus (systemic lupus erythematosus) M32.9 Active 20484603 Problem Type 2 diabetes mellitus 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, unspecified intermediate 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 E11.9 Active 41862105 Problem Parkinsons disease G20 Active 87405025 Problem Neuropathy G62.9 Active 099770775 Problem Rosacea L71.9 Active 607424655 Problem Venous stasis I87.8 Active 34098861 Problem Gastroesophageal reflux disease, esophagitis presence not specified K21.9 Active 589326028 ALLERGIES Unknown Allergies SOCIAL HISTORY No smoking Hx information available PLAN OF CARE VITAL SIGNS MEDICATIONS Unknown Medications RESULTS No Results PROCEDURES No Known procedures IMMUNIZATIONS No Known Immunizations
--- OUTSIDE RECORDS SUMMARY | 2018-02-11 14:40 | XMS REPORT ---
Author Author ALEJANDRO GERONIMO [facility] Address [address] [place] [address] Care Team Providers Care Coating Engineer Name Role Phone ALEJANDRO GERONIMO Unavailable PROBLEMS Type Condition ICD9-CM Code KCM78-BH Code Onset Dates Condition Status SNOMED Code Problem Hammer toe of left foot M20.42 Active 415015546 Problem Leukocytosis D72.829 Active 086945048 Problem Nicotine dependence, cigarettes, uncomplicated F17.210 Active 071885285 Problem Overactive bladder N32.81 Active 773851698 Problem Diarrhea, unspecified type R19.7 Active 69903939 Problem Chronic obstructive pulmonary disease, unspecified COPD type J44.9 Active 77565378 Problem OAB (overactive bladder) N32.81 Active 139768399 Problem Hypercholesterolemia E78.00 Active 57952543 Problem Lymphedema I89.0 Active 484443005 Problem Essential hypertension I10 Active 17746957 Problem Lupus (systemic lupus erythematosus) M32.9 Active 06680266 Problem Type 2 diabetes mellitus 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, unspecified watermaster insulin use status E11.9 Active 79816912 Problem Parkinsons disease G20 Active 64962210 Problem Neuropathy G62.9 Active 528251783 Problem Rosacea L71.9 Active 812438875 Problem Venous stasis I87.8 Active 01262522 Problem Gastroesophageal reflux disease, esophagitis presence not specified K21.9 Active 314507988 ALLERGIES Unknown Allergies SOCIAL HISTORY No smoking Hx information available PLAN OF CARE VITAL SIGNS MEDICATIONS Unknown Medications RESULTS No Results PROCEDURES No Known procedures IMMUNIZATIONS No Known Immunizations
[2018-02-11 14:49] LABS: BILIRUBIN,URINE NEGATIVE (NEGATIVE); CLARITY,URINE CLEAR; COLOR,URINE YELLOW; GLUCOSE, URINE (UA) NEGATIVE (NEGATIVE); KETONES,URINE NEGATIVE (NEGATIVE); LEUKOCYTE ESTERASE ,URINE 1+ (NEGATIVE); NITRITE,URINE NEGATIVE (NEGATIVE); PH,URINE 5 (5-9); PROTEIN,URINE 1+ (NEGATIVE); UROBILINOGEN,URINE NORMAL (NORMAL)
[2018-02-11 14:51] LABS: BASOPHILS % (AUTO) 0 % (0-10); EOSINOPHILS # (AUTO) 0.4 10^3/uL (0.0-0.3); EOSINOPHILS % (AUTO) 4 % (0-10); HEMATOCRIT 29 % (40-54); HEMOGLOBIN 9.9 G/DL (13.3-17.7); LYMPHOCYTES # (AUTO) 1.8 X 10^3 (1.0-4.0); LYMPHOCYTES % (AUTO) 22 % (12-44); MEAN CORPUSCULAR HEMOGLOBIN 29 PG (25-34); MEAN CORPUSCULAR HGB CONC 34 G/DL (32-36); MEAN CORPUSCULAR VOLUME 86 FL (80-99); MEAN PLATELET VOLUME 11.8 FL (7.4-10.4); MONOCYTES # (AUTO) 1.1 X 10^3 (0.0-1.0); MONOCYTES % (AUTO) 13 % (0-12); NEUTROPHILS # (AUTO) 4.9 X 10^3 (1.8-7.8); NEUTROPHILS % (AUTO) 60 % (42-75); PLATELET COUNT 173 10^3/uL (130-400); RED BLOOD COUNT 3.42 10^6/uL (4.35-5.85); WHITE BLOOD COUNT 8.2 10^3/uL (4.3-11.0)
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
[2018-02-11 15:05] LABS: INR 1.5 (0.8-1.4); PROTHROMBIN TIME PATIENT 18.3 SEC (12.2-14.7)
[2018-02-11 15:06] LABS: BACTERIA,URINE NEGATIVE /HPF; RBC,URINE RARE /HPF; SQUAMOUS EPITHELIAL CELL,UR 0-2 /HPF
[2018-02-11 15:11] LABS: ALANINE AMINOTRANSFERASE < 6 U/L (0-55); ALBUMIN 2.9 GM/DL (3.2-4.5); ALKALINE PHOSPHATASE 40 U/L (40-136); BILIRUBIN,TOTAL 0.4 MG/DL (0.1-1.0); BUN/CREATININE RATIO 17; CALCIUM 7.7 MG/DL (8.5-10.1); CARBON DIOXIDE 16 MMOL/L (21-32); CHLORIDE 113 MMOL/L (98-107); CREATININE SERUM 3.99 MG/DL (0.60-1.30); GFR ESTIMATED 15; GLUCOSE 143 MG/DL (70-105); POTASSIUM 4.4 MMOL/L (3.6-5.0); SODIUM 138 MMOL/L (135-145); TOTAL PROTEIN 5.8 GM/DL (6.4-8.2)
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
[2018-02-11] MEDS: NS IV 1000 ML 1,000 ML IV SCH ×2 (15:20→15:55)
--- NOTE | 2018-02-11 15:25 | Diagnostic Imaging Report ---
INDICATION: Frequent falls and Parkinson's. Comparison made with prior examination from 01/06/2018. FINDINGS: There is cardiomegaly. There is some venous congestion. There is no pleural effusion or pneumothorax. Mediastinum is unremarkable. IMPRESSION: Cardiomegaly and moderate central pulmonary venous congestion. Dictated by: Dictated on workstation # [id number]
--- NOTE | 2018-02-11 16:11 | Diagnostic Imaging Report ---
INDICATION: Line placement. COMPARISON: 02/11/2018 at 3:13 PM. TIME OF EXAMINATION: 02/11/2018 at 3:53 PM. FINDINGS: A semiupright portable view of the chest was obtained. There is a new right central line present, the tip of which appears to be in the right atrium. There is no evidence of pneumothorax. There is moderate central venous congestion with mild cardiomegaly, similar to the prior study. No focal pneumonia or pleural fluid is suspected. IMPRESSION: A new right central line tip appears to be in the proximal right atrium. No evidence of pneumothorax. Central venous congestion and cardiomegaly, similar to the prior exam. Dictated by: Dictated on workstation # [id number]
[2018-02-11 16:20] LABS: TSH (THYROID ANALYZER) 0.14 UIU/ML (0.35-4.94)
[2018-02-11 16:20] LABS: ABG BASE EXCESS -8.1 MMOL/L (-2.5-2.5); ABG OXYGEN SATURATION 98 % (94-100); ABG PCO2 38 MMHG (35-45); ABG PO2 96 MMHG (79-93); ABG TCO2 18.8 MMOL/L (21.0-31.0)
[2018-02-11 16:21] LABS: ABG PH 7.28 (7.37-7.43); ALLENS TEST YES-POS
[2018-02-11 16:22] LABS: INSPIRED O2 40+; PATIENT TEMP 96.8; VENTILATOR NO
[2018-02-11] MEDS: NOREPINEPHRINE 4 MG in NS (IVPB) 250 ML IV SCH ×2 (17:04→17:06)
[2018-02-11 17:45] VITALS: BP 118/69
== END 2018-02-11 17:45 | disposition home or self-care (01) ==
LOC: EDUNIT# 14:27 → ER 14:29
DX: N17.9 Acute kidney failure, unspecified (principal); I11.0 Hypertensive heart disease with heart failure; I50.9 Heart failure, unspecified; J96.90 Respiratory failure, unspecified, unspecified whether with hypoxia or hypercapnia; I95.9 Hypotension, unspecified; G20 Parkinson's disease; I48.91 Unspecified atrial fibrillation; J44.9 Chronic obstructive pulmonary disease, unspecified; E78.00 Pure hypercholesterolemia, unspecified; E11.9 Type 2 diabetes mellitus 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s; F41.9 Anxiety disorder, unspecified; F32.9 Major depressive disorder, single episode, unspecified; K21.9 Gastro-esophageal reflux disease without esophagitis; F17.210 Nicotine dependence, cigarettes, uncomplicated; Z86.73 Personal history of transient ischemic attack (TIA), and cerebral infarction without residual deficits; Z87.19 Personal history of other diseases of the digestive system; Z82.49 Family history of ischemic heart disease and other diseases of the circulatory system; Z87.820 Personal history of traumatic brain injury; Z79.51 Long term (current) use of inhaled steroids; Z86.718 Personal history of other venous thrombosis and embolism; Z79.84 Long term (current) use of oral hypoglycemic drugs; Z79.01 Long term (current) use of anticoagulants
CPT/HCPCS: 36415; 36600; 51702; 70450; 71045; 80053; 81000; 82805; 83605; 84439; 84443; 84484; 85025; 85610; 85730; 87040; 93005; 96361; 96365

== ENCOUNTER → 2018-03-04 | Outpatient (CLI) | payer MEDICARE, MEDICAID ==
[~2018-03-04] MED LIST changes: -HYDROCORTISONE 100 MG/2 ML (Solu-CORTEF) VIAL ONE; -NOREPINEPHRINE 4 MG/4 ML (LEVOPHED) AMP IV ONE; -NS (IVPB) 250 ML ONE
== END ==
LOC: WOUNDCARE 12:20
PROVIDERS: ATTEND Surgery
DX: E11.621 Type 2 diabetes mellitus with foot ulcer (principal); I70.245 Atherosclerosis of native arteries of left leg with ulceration of other part of foot; L97.521 Non-pressure chronic ulcer of other part of left foot limited to breakdown of skin; E11.42 Type 2 diabetes mellitus with diabetic polyneuropathy
CPT/HCPCS: 11042

== ENCOUNTER → 2018-03-27 | Outpatient (CLI) | payer MEDICARE, MEDICAID ==
[~2018-03-27] MED LIST changes: +HYDR-4226 PO; -HYDR-757 PO; -LOSA100T28 PO; +LOSA100T8 PO; +METF-397 PO; -METF500T5 PO
== END ==
LOC: WOUNDCARE 13:31
PROVIDERS: ATTEND Surgery
DX: E11.621 Type 2 diabetes mellitus with foot ulcer (principal); L97.521 Non-pressure chronic ulcer of other part of left foot limited to breakdown of skin; E11.42 Type 2 diabetes mellitus with diabetic polyneuropathy
CPT/HCPCS: 99212

== ENCOUNTER 2019-05-29 13:35 | Emergency (ER) | payer MEDICARE, MEDICAID ==
[~2019-05-29] VITALS: Ht 162.5 cm; Wt 79.6 kg
[~2019-05-29 13:35] MED LIST changes: -DULO60CA58 PO; +DULO60CA59 PO; -GABA600T2 PO; +GBPN600T PO; +LOSA100T57 PO; -LOSA100T8 PO; +METR-145; -METR500T21; -OMEP20CA12 PO; +OMEP20CA13 PO; +RIVA10T; -RIVA10TA; -RIVA20TA PO
[2019-05-29] MEDS ORDERED: KETOROLAC 15 MG/ML VIAL IV ONE (14:00)
[2019-05-29] MEDS ORDERED: ONDANSETRON 4 MG/2 ML (SDV) Z0FRAN IVP ONE (14:00)
[2019-05-29 14:11] LABS: HEMATOCRIT 40 % (40-54); HEMOGLOBIN 13.4 G/DL (13.3-17.7); MEAN CORPUSCULAR HEMOGLOBIN 28 PG (25-34); MEAN CORPUSCULAR HGB CONC 33 G/DL (32-36); MEAN CORPUSCULAR VOLUME 83 FL (80-99); RED CELL DISTRIBUTION WIDTH 16.8 % (10.0-14.5); WHITE BLOOD COUNT 8.8 10^3/uL (4.3-11.0)
[2019-05-29 14:12] LABS: BASOPHILS % (AUTO) 0 % (0-10); EOSINOPHILS # (AUTO) 0.3 10^3/uL (0.0-0.3); EOSINOPHILS % (AUTO) 3 % (0-10); LYMPHOCYTES # (AUTO) 2.3 X 10^3 (1.0-4.0); LYMPHOCYTES % (AUTO) 26 % (12-44); MEAN PLATELET VOLUME 11.3 FL (7.4-10.4); MONOCYTES # (AUTO) 0.8 X 10^3 (0.0-1.0); MONOCYTES % (AUTO) 10 % (0-12); NEUTROPHILS # (AUTO) 5.5 X 10^3 (1.8-7.8); NEUTROPHILS % (AUTO) 62 % (42-75); PLATELET COUNT 279 10^3/uL (130-400)
[2019-05-29] MEDS ORDERED: KETOROLAC 30 MG/ML VIAL IVP ONE (14:30)
[2019-05-29 15:07] LABS: ALANINE AMINOTRANSFERASE < 6 U/L (0-55); ALBUMIN 4.2 GM/DL (3.2-4.5); ALKALINE PHOSPHATASE 68 U/L (40-136); BILIRUBIN,TOTAL 0.3 MG/DL (0.1-1.0); BUN/CREATININE RATIO 15; CARBON DIOXIDE 23 MMOL/L (21-32); CHLORIDE 101 MMOL/L (98-107); GFR ESTIMATED 55; GLUCOSE 104 MG/DL (70-105); POTASSIUM 4.2 MMOL/L (3.6-5.0); SODIUM 135 MMOL/L (135-145); TOTAL PROTEIN 6.9 GM/DL (6.4-8.2)
[2019-05-29 15:51] LABS: BILIRUBIN,URINE NEGATIVE (NEGATIVE); CLARITY,URINE CLEAR; COLOR,URINE YELLOW; GLUCOSE, URINE (UA) NEGATIVE (NEGATIVE); KETONES,URINE NEGATIVE (NEGATIVE); LEUKOCYTE ESTERASE ,URINE NEGATIVE (NEGATIVE); NITRITE,URINE NEGATIVE (NEGATIVE); PROTEIN,URINE NEGATIVE (NEGATIVE)
[2019-05-29 16:26] LABS: BACTERIA,URINE TRACE /HPF; SQUAMOUS EPITHELIAL CELL,UR RARE /HPF
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
[2019-05-29] MEDS ORDERED: ONDA4TAB11 PO (16:56)
[2019-05-29 17:06] VITALS: BP 132/71
== END 2019-05-29 17:05 | disposition home or self-care (01) ==
LOC: EDUNIT# 13:35 → ER 13:36
DX: R10.31 Right lower quadrant pain (principal); I10 Essential (primary) hypertension; E11.40 Type 2 diabetes mellitus with diabetic neuropathy, unspecified; E78.00 Pure hypercholesterolemia, unspecified; J44.9 Chronic obstructive pulmonary disease, unspecified; F41.9 Anxiety disorder, unspecified; F32.9 Major depressive disorder, single episode, unspecified; I48.91 Unspecified atrial fibrillation; G20 Parkinson's disease; K21.9 Gastro-esophageal reflux disease without esophagitis; F17.210 Nicotine dependence, cigarettes, uncomplicated; Z86.718 Personal history of other venous thrombosis and embolism; Z87.828 Personal history of other (healed) physical injury and trauma; Z86.73 Personal history of transient ischemic attack (TIA), and cerebral infarction without residual deficits; Z79.51 Long term (current) use of inhaled steroids; Z79.84 Long term (current) use of oral hypoglycemic drugs; Z79.01 Long term (current) use of anticoagulants; Z82.49 Family history of ischemic heart disease and other diseases of the circulatory system
CPT/HCPCS: 36415; 80053; 81000; 85025; 86141

== ENCOUNTER 2019-06-10 12:01 | Outpatient (CLI) | payer MEDICARE, MEDICAID ==
[~2019-06-10] VITALS: Ht 162.6 cm; Wt 79.7 kg
[~2019-06-10 12:01] MED LIST changes: +ONDA4TAB11 PO
[2019-06-10 12:14] VITALS: BP 102/60
[2019-06-10] MEDS ORDERED: FURO80TA3 PO (13:58)
[2019-06-10] MEDS ORDERED: OMEP20CA13 PO (13:58)
[2019-06-10] MEDS ORDERED: LEVO5TAB12 PO (13:58)
[2019-06-10] MEDS ORDERED: ACET1TAB45 PO (13:58)
[2019-06-10] MEDS ORDERED: BUME2TAB7 PO (13:58)
[2019-06-10] MEDS ORDERED: POTA20TA15 PO (13:58)
[2019-06-10] MEDS ORDERED: METO50TA15 PO (14:09)
== END 2019-06-10 12:35 | disposition home or self-care (01) ==
LOC: PREOP 12:01
PROVIDERS: ATTEND Surgery
DX: Z01.818 Encounter for other preprocedural examination (principal); K40.90 Unilateral inguinal hernia, without obstruction or gangrene, not specified as recurrent
CPT/HCPCS: 87081; 93005

== ENCOUNTER 2019-06-12 09:14 | Day surgery (SDC) | payer MEDICARE, MEDICAID ==
[~2019-06-12] VITALS: Ht 162.6 cm; Wt 79.7 kg
[2019-06-12] VITALS (11 sets, daily range): BP systolic 88–144; BP diastolic 55–76
[~2019-06-12 09:14] MED LIST changes: +ACET1TAB45 PO; +BUME2TAB7 PO; +FURO80TA3 PO; +LEVO5TAB12 PO; +POTA20TA15 PO
[2019-06-12] MEDS ORDERED: ceFAZolin 2 GM IV Premixed 50 ML ONE (09:39)
[2019-06-12] MEDS: LACTATED RINGERS 1,000 ML IV PRN ×2 (09:39→11:30)
[2019-06-12] MEDS ORDERED: ceFAZolin 2 GM IV Premixed 50 ML IV ONE (09:45)
--- NOTE | 2019-06-12 09:57 | Progress Note-Pre Operative ---
Pre-Operative Progress Note H&P Reviewed The H&P was reviewed, patient examined and no changes noted. Time Seen by Provider: 09:52 Date H&P Reviewed: Jun 12, 2019 Time H&P Reviewed: 09:53 Pre-Operative Diagnosis: Incarcerated right inguinal hernia SUE BOWLING DO Jun 12, 2019 09:57 POS
[2019-06-12] MEDS ORDERED: BUP/EPI 0.5% 1:200,000 (MARCAINE) 10ML VIAL IJ ONE (09:59)
[2019-06-12] MEDS ORDERED: fentaNYL INJECTION 100 MCG/2 ML AMP ONE (10:11)
[2019-06-12] MEDS ORDERED: NEOSTIGMINE 3 MG/3 ML VIAL ONE (10:11)
[2019-06-12] MEDS ORDERED: SEVOFLURANE (ULTANE) 15 ML INHAL SOLN ONE (10:11)
[2019-06-12] MEDS ORDERED: GLYCOPYRROLATE 0.2 MG/ML (ROBINUL) 2 ML VIAL ONE ×2 (10:11→11:27)
[2019-06-12] MEDS ORDERED: ROCURONIUM 10 MG/ML 5 ML SYRINGE IV ONE (10:11)
[2019-06-12] MEDS ORDERED: MIDAZOLAM 2 MG/2 ML (VERSED) VIAL ONE (10:11)
[2019-06-12] MEDS ORDERED: proPOfol 200 MG/20 ML (DIPRIVAN) VIAL IV ONE (10:11)
[2019-06-12] MEDS ORDERED: LIDOCAINE PF 2% 5 ML (XYLOCAINE) VIAL ONE (10:11)
[2019-06-12] MEDS ORDERED: ONDANSETRON 4 MG/2 ML (SDV) Z0FRAN ONE (10:12)
--- NOTE | 2019-06-12 11:47 | Progress Note-Post Operative ---
Post-Operative Progess Note Surgeon (s)/Pullman Car Clerk (s) Surgeon SUE BOWLING DO Pullman Car Clerk: Linda Pre-Operative Diagnosis RIGHT INCARCERATED INGUINAL HERNIA Post-Operative Diagnosis same indirect with hernia sac and direct component Cord lipoma appendicolith Procedure & Operative Findings Date of Procedure 06/12/19 Procedure Performed/Findings 1. Right IH with mesh placement 2. Exc of cord lipoma Anesthesia Type GET Estimated Blood Loss Estimated blood loss (mL): scant Specimens/Packing Specimens Removed hernia sac cord lipoma SUE BOWLING DO Jun 12, 2019 11:46 POS
--- NOTE | 2019-06-12 11:48 | Discharge Inst-Surgical ---
Discharge Inst-Surgical Depart Medication/Instructions New, Converted or Re-Newed RX: Other (pt has home pain meds, can take ibuprofen for pain) Activity Activity as Tolerated: Yes Activity Instructions: Avoid Stress to Incision Driving Instructions: No Driving/Refer to Dr. Zhang Discharge Diet: No Restrictions Diet After 24 Hours: Clear Liquid if Nauseous If Any Problems/Questions/Issu: Contact Your Physician, Go to Emergency Room Skin/Wound Care Infection Signs and Symptoms: Increased Redness, Foul Odor of Wound, Increased Drainage, Skin Itchy or Has a Rash, Increased Swelling, Temperature Above 101 F Bathing Instructions: Shower Stitches/[place]/Dermabond Dis: Dermabond Ice Pack: Ice On and Off Site (as needed for pain) SUE BOWLING DO Jun 12, 2019 11:48 POS
[2019-06-12] MEDS ORDERED: ONDANSETRON 4 MG/2 ML (SDV) Z0FRAN IVP PRN (12:15)
[2019-06-12] MEDS ORDERED: HYDROmorphone 2 MG/ML VIAL (DILAUDID) IV ONE (12:15)
[2019-06-12] MEDS ORDERED: morphine INJ 10 MG/ML 1ML (SYR OR VIAL) IVP ONE (12:15)
--- NOTE | 2019-06-12 12:41 | Anesthesia-General Post-Op ---
General Patient Condition Mental Status/LOC: Same as Preop Cardiovascular: Satisfactory Nausea/Vomiting: Absent Respiratory: Satisfactory Pain: Controlled Complications: Absent Post Op Complications Complications None Follow Up Care/Instructions Patient Instructions None needed. Anesthesia/Patient Condition Patient Condition Patient is doing well, no complaints, stable vital signs, no apparent adverse anesthesia problems. KEATON HUDSON DO Jun 12, 2019 12:41 POS
--- NOTE | 2019-06-12 14:08 | OPERATIVE REPORT ---
DATE OF SERVICE: 06/12/2019 PREOPERATIVE DIAGNOSIS: Incarcerated inguinal hernia. POSTOPERATIVE DIAGNOSES: 1. Indirect as well as a direct inguinal hernia. 2. Cord lipoma. PROCEDURE: 1. Right inguinal herniorrhaphy with mesh placement. 2. Excision of cord lipoma. SURGEON: Sue Glover DO. API PRODUCT MANAGER: Kevin Mckeon DO. ANESTHESIA: General endotracheal tube. SPECIMEN: Hernia sac. BLOOD LOSS: Scant. FLUIDS: Per anesthesia. POSTOPERATIVE CONDITION: Stable. INDICATION FOR PROCEDURE: The patient is a 69-year-old male, who has pain and bulge in the right inguinal region diagnosed with incarcerated inguinal hernia, wanted to get this fixed. FINDINGS: The patient had an indirect inguinal hernia with incarceration of fat and actually appendix pushing in and noted to have some appendicolith. He has had a floor defect and he had a cord lipoma. PROCEDURE NOTE: After informed consent was obtained, the patient was brought to the operating room, placed on the operating room table in supine position. He was then sterilely prepped and draped in normal fashion. Local lidocaine was used to perform right inguinal regional block and then made an incision with #15 blade, carried down through the skin into subcutaneous tissue, made this right through the previous low incision, almost like a Pfannenstiel incision, carried down to skin and subcutaneous tissue, then carefully moved some fat on the way, able to identify the external oblique fascia, found the indirect inguinal ring and then went through this opening the external oblique fascia with a Bovie electrocautery, held this apart and then able to grasp the cord and cord structures and get under it, placed a Jimmy drain and could actually see a very large cord lipoma and easily see the indirect hernia sac, able to take the cord lipoma off with the Bovie electrocautery, passed this off table and got into the hernia sac, and we were able to push stuff out. There was a piece of fat that was incarcerated and the appendix was coming and appendix had some appendicolith, consider trying to remove it, but could not get down to the base of the appendix, so pushed this back in, some of the appendix and part of the wall may have been partially sliding inguinal hernia, so I used a 0 Vicryl to do a pursestring suture to pursestring this hernia sac down and then tied it and then cut the top off with Bovie electrocautery, passing the hernia sac off the table. There is a big floor defect, but it was actually the whole wall, probably because of his multiple previous surgeries, so I elected to place a right-sided Parietex mesh, deployed into the space, sutured at the pubic tubercle with a 2-0 Vicryl, placed under the external oblique fascia and sutured at the aponeurosis of transverse abdominis with a 2-0 Vicryl. The rest of the mesh that fed up under the external oblique fascia nicely and circled the cord with a precut hole and then elected to close the external oblique fascia with 3-0 Vicryl running suture, thereby recreating the external inguinal ring and then closed the Remedios's fascia with 3-0 Vicryl and then did a running 4-0 undyed Monocryl subcuticular stitch, closed the incisions. The patient tolerated the procedure. Sponge, instrument and needle count correct at the end of the case. Dr. Mckeon assisted in this case helping to make incision, helping to close incision, identify anatomy and hold anatomy out of the way. Job ID: [id number] DocumentID: [id number] Dictated Date: 06/12/2019 11:45:08 Curber Date: 06/12/2019 13:43:57 Dictated By: SUE GLOVER DO
[2019-06-12] MEDS ORDERED: APAP 300 MG/CODEINE 30 MG (TYLENOL #3) TAB PO ONE ×2 (14:25→14:30)
--- NOTE | 2019-06-12 14:30 | NUR ---
DR. BOWLING CALLED AND NOTIFIED OF PT'S C/O OF PAIN TO RIGHT INGUINAL INCISION, NEW ORDER RECEIVED FOR PAIN MEDICATION SEE EMAR DETAILS. PT DENIES NEED TO VOID, NEW ORDER RECEIVED PER DR. BOWLING THAT PT MAY DISCHARGE TO HOME W/O VOIDING AND TO RETURN TO HOSPITAL IN ANY PROBLEMS OR UNABLE TO VOID IN 8 HOURS. PT NOTIFIED, VERBALIZES UNDERSTANDING.
== END 2019-06-12 14:55 | disposition home or self-care (01) ==
LOC: SDC 09:14
PROVIDERS: ATTEND Surgery
DX: K40.30 Unilateral inguinal hernia, with obstruction, without gangrene, not specified as recurrent (principal); D17.79 Benign lipomatous neoplasm of other sites; K38.1 Appendicular concretions; I11.0 Hypertensive heart disease with heart failure; I50.9 Heart failure, unspecified; I48.91 Unspecified atrial fibrillation; J44.9 Chronic obstructive pulmonary disease, unspecified; E11.40 Type 2 diabetes mellitus with diabetic neuropathy, unspecified; E78.5 Hyperlipidemia, unspecified; E66.9 Obesity, unspecified; K21.9 Gastro-esophageal reflux disease without esophagitis; M50.30 Other cervical disc degeneration, unspecified cervical region; F41.9 Anxiety disorder, unspecified; F17.210 Nicotine dependence, cigarettes, uncomplicated; Z79.84 Long term (current) use of oral hypoglycemic drugs; Z68.30 Body mass index [BMI] 30.0-30.9, adult; Z86.73 Personal history of transient ischemic attack (TIA), and cerebral infarction without residual deficits; Z79.899 Other long term (current) drug therapy; Z82.49 Family history of ischemic heart disease and other diseases of the circulatory system; Z83.3 Family history of diabetes mellitus; Z80.9 Family history of malignant neoplasm, unspecified
CPT/HCPCS: 82962

== ENCOUNTER → 2020-01-14 | Outpatient (CLI) | payer MEDICARE, MEDICAID ==
[~2020-01-14] MED LIST changes: -ACET-77 PO; +ACET-78 PO; -IBUP-2055 PO; +IBUP-2473 PO; -MORP60TA52 PO; +MORP60TA69 PO; -OMEP20CA13 PO; +OMEP20CA18 PO; +OXYB5TAB13; +OXYB5TAB13 PO; -OXYB5TAB9; -ROPI2TAB4 PO; +ROPI2TAB6 PO; +SIMV20TA26; -SIMV20TA3
== END ==
LOC: WOUNDCARE 13:55
PROVIDERS: ATTEND Surgery
DX: E11.621 Type 2 diabetes mellitus with foot ulcer (principal); E11.52 Type 2 diabetes mellitus with diabetic peripheral angiopathy with gangrene; E11.42 Type 2 diabetes mellitus with diabetic polyneuropathy; I70.262 Atherosclerosis of native arteries of extremities with gangrene, left leg; L97.522 Non-pressure chronic ulcer of other part of left foot with fat layer exposed; L97.512 Non-pressure chronic ulcer of other part of right foot with fat layer exposed; I89.0 Lymphedema, not elsewhere classified; T65.222A Toxic effect of tobacco cigarettes, intentional self-harm, initial encounter; F17.218 Nicotine dependence, cigarettes, with other nicotine-induced disorders
CPT/HCPCS: 11042; A6196; G0463; 99213

== ENCOUNTER → 2020-01-14 | Outpatient (CLI) | payer MEDICARE, MEDICAID ==
[2020-01-14 16:07] LABS: BASOPHILS % (AUTO) 0 % (0-10); EOSINOPHILS # (AUTO) 0.3 10^3/uL (0.0-0.3); EOSINOPHILS % (AUTO) 5 % (0-10); HEMATOCRIT 34 % (40-54); HEMOGLOBIN 10.9 G/DL (13.3-17.7); LYMPHOCYTES # (AUTO) 1.6 X 10^3 (1.0-4.0); LYMPHOCYTES % (AUTO) 25 % (12-44); MEAN CORPUSCULAR HEMOGLOBIN 25 PG (25-34); MEAN CORPUSCULAR HGB CONC 32 G/DL (32-36); MEAN CORPUSCULAR VOLUME 76 FL (80-99); MEAN PLATELET VOLUME 10.5 FL (7.4-10.4); MONOCYTES # (AUTO) 0.6 X 10^3 (0.0-1.0); MONOCYTES % (AUTO) 10 % (0-12); NEUTROPHILS # (AUTO) 3.6 X 10^3 (1.8-7.8); NEUTROPHILS % (AUTO) 59 % (42-75); PLATELET COUNT 276 10^3/uL (130-400); RED CELL DISTRIBUTION WIDTH 18.6 % (10.0-14.5); WHITE BLOOD COUNT 6.2 10^3/uL (4.3-11.0)
[2020-01-14 16:09] LABS: SMEAR SCAN COMMENT YES
[2020-01-14 16:17] LABS: ALBUMIN 4.3 GM/DL (3.2-4.5)
[2020-01-14 16:18] LABS: CHLORIDE 102 MMOL/L (98-107); POTASSIUM 3.6 MMOL/L (3.6-5.0); SODIUM 138 MMOL/L (135-145)
[2020-01-14 16:19] LABS: CALCIUM 9.1 MG/DL (8.5-10.1)
[2020-01-14 16:20] LABS: GLUCOSE 140 MG/DL (70-105); TOTAL PROTEIN 7.8 GM/DL (6.4-8.2)
[2020-01-14 16:21] LABS: CARBON DIOXIDE 25 MMOL/L (21-32)
[2020-01-14 16:22] LABS: BILIRUBIN,TOTAL 0.3 MG/DL (0.1-1.0)
[2020-01-14 16:23] LABS: ALKALINE PHOSPHATASE 76 U/L (40-136); CREATININE SERUM 1.48 MG/DL (0.60-1.30); GFR ESTIMATED 47
[2020-01-14 16:25] LABS: BUN/CREATININE RATIO 9
[2020-01-14 16:26] LABS: ALANINE AMINOTRANSFERASE < 6 U/L (0-55)
== END ==
LOC: LAB 15:54
PROVIDERS: ATTEND Surgery
DX: E11.621 Type 2 diabetes mellitus with foot ulcer (principal); E11.42 Type 2 diabetes mellitus with diabetic polyneuropathy; L97.522 Non-pressure chronic ulcer of other part of left foot with fat layer exposed; L97.512 Non-pressure chronic ulcer of other part of right foot with fat layer exposed; I70.245 Atherosclerosis of native arteries of left leg with ulceration of other part of foot; I89.0 Lymphedema, not elsewhere classified; T65.222A Toxic effect of tobacco cigarettes, intentional self-harm, initial encounter; F17.218 Nicotine dependence, cigarettes, with other nicotine-induced disorders
CPT/HCPCS: 36415; 80053; 83036; 85025

== ENCOUNTER → 2020-01-21 | Outpatient (CLI) | payer MEDICARE, MEDICAID | LOC: WOUNDCARE 15:01 | PROVIDERS: ATTEND Surgery | DX: E11.621 Type 2 diabetes mellitus with foot ulcer (principal); E11.42 Type 2 diabetes mellitus with diabetic polyneuropathy; L97.522 Non-pressure chronic ulcer of other part of left foot with fat layer exposed; L97.512 Non-pressure chronic ulcer of other part of right foot with fat layer exposed; I70.245 Atherosclerosis of native arteries of left leg with ulceration of other part of foot; I89.0 Lymphedema, not elsewhere classified; T65.222A Toxic effect of tobacco cigarettes, intentional self-harm, initial encounter; E11.52 Type 2 diabetes mellitus with diabetic peripheral angiopathy with gangrene; F17.218 Nicotine dependence, cigarettes, with other nicotine-induced disorders | CPT/HCPCS: 11042; A6196 ==

== ENCOUNTER → 2020-01-28 | Outpatient (CLI) | payer MEDICARE, MEDICAID | LOC: WOUNDCARE 14:24 | PROVIDERS: ATTEND Surgery | DX: E11.621 Type 2 diabetes mellitus with foot ulcer (principal); E11.42 Type 2 diabetes mellitus with diabetic polyneuropathy; L97.522 Non-pressure chronic ulcer of other part of left foot with fat layer exposed; E11.52 Type 2 diabetes mellitus with diabetic peripheral angiopathy with gangrene; T65.222A Toxic effect of tobacco cigarettes, intentional self-harm, initial encounter; F17.218 Nicotine dependence, cigarettes, with other nicotine-induced disorders | CPT/HCPCS: 11042; A6207 ==

== ENCOUNTER → 2020-02-04 | Outpatient (CLI) | payer MEDICARE, MEDICAID | LOC: WOUNDCARE 14:30 | PROVIDERS: ATTEND Surgery | DX: E11.621 Type 2 diabetes mellitus with foot ulcer (principal); L97.522 Non-pressure chronic ulcer of other part of left foot with fat layer exposed; E11.42 Type 2 diabetes mellitus with diabetic polyneuropathy; T65.222A Toxic effect of tobacco cigarettes, intentional self-harm, initial encounter; F17.218 Nicotine dependence, cigarettes, with other nicotine-induced disorders; J44.9 Chronic obstructive pulmonary disease, unspecified; J32.9 Chronic sinusitis, unspecified; I48.91 Unspecified atrial fibrillation; Z86.718 Personal history of other venous thrombosis and embolism; Z79.01 Long term (current) use of anticoagulants; M19.90 Unspecified osteoarthritis, unspecified site; I11.0 Hypertensive heart disease with heart failure; I50.9 Heart failure, unspecified; E11.51 Type 2 diabetes mellitus with diabetic peripheral angiopathy without gangrene; E78.00 Pure hypercholesterolemia, unspecified; E78.5 Hyperlipidemia, unspecified; K21.9 Gastro-esophageal reflux disease without esophagitis; G20 Parkinson's disease; F32.9 Major depressive disorder, single episode, unspecified; Z91.81 History of falling | CPT/HCPCS: 11042; G0463 ==

== ENCOUNTER → 2020-02-11 | Outpatient (CLI) | payer MEDICARE, MEDICAID | LOC: WOUNDCARE 14:27 | PROVIDERS: ATTEND Orthopaedic Surgery Hand Surgery | DX: E11.621 Type 2 diabetes mellitus with foot ulcer (principal); E11.42 Type 2 diabetes mellitus with diabetic polyneuropathy; T65.222A Toxic effect of tobacco cigarettes, intentional self-harm, initial encounter; F17.218 Nicotine dependence, cigarettes, with other nicotine-induced disorders; L84 Corns and callosities; J44.9 Chronic obstructive pulmonary disease, unspecified; I48.91 Unspecified atrial fibrillation; I11.0 Hypertensive heart disease with heart failure; I50.30 Unspecified diastolic (congestive) heart failure; M32.9 Systemic lupus erythematosus, unspecified; M19.90 Unspecified osteoarthritis, unspecified site; F17.210 Nicotine dependence, cigarettes, uncomplicated | CPT/HCPCS: 99212 ==

== ENCOUNTER → 2020-02-19 | Outpatient (CLI) | payer MEDICARE, MEDICAID | LOC: WOUNDCARE 12:29 | PROVIDERS: ATTEND Surgery | DX: E11.621 Type 2 diabetes mellitus with foot ulcer (principal); L97.522 Non-pressure chronic ulcer of other part of left foot with fat layer exposed; E11.42 Type 2 diabetes mellitus with diabetic polyneuropathy; T65.222A Toxic effect of tobacco cigarettes, intentional self-harm, initial encounter; F17.218 Nicotine dependence, cigarettes, with other nicotine-induced disorders; J44.9 Chronic obstructive pulmonary disease, unspecified; I11.0 Hypertensive heart disease with heart failure; I50.30 Unspecified diastolic (congestive) heart failure; E11.51 Type 2 diabetes mellitus with diabetic peripheral angiopathy without gangrene; Z86.718 Personal history of other venous thrombosis and embolism; Z79.01 Long term (current) use of anticoagulants; M32.9 Systemic lupus erythematosus, unspecified | CPT/HCPCS: 11042; A6207; G0463 ==

== ENCOUNTER → 2020-02-25 | Outpatient (CLI) | payer MEDICARE, MEDICAID | LOC: WOUNDCARE 14:27 | PROVIDERS: ATTEND Surgery | DX: E11.621 Type 2 diabetes mellitus with foot ulcer (principal); E11.42 Type 2 diabetes mellitus with diabetic polyneuropathy; L97.522 Non-pressure chronic ulcer of other part of left foot with fat layer exposed; T65.222A Toxic effect of tobacco cigarettes, intentional self-harm, initial encounter; F17.218 Nicotine dependence, cigarettes, with other nicotine-induced disorders | CPT/HCPCS: 99212 ==

== ENCOUNTER 2020-03-18 23:58 | Emergency (ER) | payer MEDICARE, MEDICAID ==
[~2020-03-18] VITALS: Ht 160 cm; Wt 83.9 kg
[2020-03-19] MEDS ORDERED: KETOROLAC 60 MG/2 ML VIAL IM ONE (00:30)
[2020-03-19] MEDS ORDERED: MELO15TA14 PO (00:30)
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
[2020-03-19 01:14] LABS: BILIRUBIN,URINE NEGATIVE (NEGATIVE); CLARITY,URINE CLEAR; COLOR,URINE YELLOW; GLUCOSE, URINE (UA) NEGATIVE (NEGATIVE); KETONES,URINE NEGATIVE (NEGATIVE); LEUKOCYTE ESTERASE ,URINE NEGATIVE (NEGATIVE); NITRITE,URINE NEGATIVE (NEGATIVE); PROTEIN,URINE NEGATIVE (NEGATIVE)
[2020-03-19 01:41] LABS: AMPHETAMINE SCREEN, URINE NEGATIVE (NEGATIVE); BARBITURATE SCREEN URINE NEGATIVE (NEGATIVE); BENZODIAZEPINES SCREEN URINE NEGATIVE (NEGATIVE); CANNABINOID SCREEN, URINE NEGATIVE (NEGATIVE); COCAINE SCREEN URINE NEGATIVE (NEGATIVE); METHADONE STAT NEGATIVE (NEGATIVE); METHAMPHETAMINE SCREEN URINE S NEGATIVE (NEGATIVE); OPIATE SCREEN URINE NEGATIVE (NEGATIVE); OXYCODONE STAT NEGATIVE (NEGATIVE); PROPOXYPHENE STAT NEGATIVE (NEGATIVE); TRICYCLIC ANTIDEPRESSANTS SCRE NEGATIVE (NEGATIVE)
[2020-03-19 01:55] LABS: BACTERIA,URINE NEGATIVE /HPF
[2020-03-19 01:56] LABS: HYALINE CASTS, URINE RARE /LPF
[2020-03-19 02:00] VITALS: BP 128/80
== END 2020-03-19 02:00 | disposition home or self-care (01) ==
LOC: EDUNIT# 23:58 → ER 03-19 00:02
DX: G89.29 Other chronic pain (principal); R10.30 Lower abdominal pain, unspecified; J44.9 Chronic obstructive pulmonary disease, unspecified; I48.91 Unspecified atrial fibrillation; I10 Essential (primary) hypertension; E11.40 Type 2 diabetes mellitus with diabetic neuropathy, unspecified; K21.9 Gastro-esophageal reflux disease without esophagitis; G20 Parkinson's disease; F41.9 Anxiety disorder, unspecified; F32.9 Major depressive disorder, single episode, unspecified; M54.9 Dorsalgia, unspecified; F17.210 Nicotine dependence, cigarettes, uncomplicated; Z82.49 Family history of ischemic heart disease and other diseases of the circulatory system; Z79.84 Long term (current) use of oral hypoglycemic drugs; Z86.73 Personal history of transient ischemic attack (TIA), and cerebral infarction without residual deficits; Z86.718 Personal history of other venous thrombosis and embolism; Z79.01 Long term (current) use of anticoagulants
CPT/HCPCS: 80306; 81000; 99284

== ENCOUNTER 2020-05-23 12:02 | Emergency (ER) | payer MEDICARE, MEDICAID ==
[~2020-05-23] VITALS: Ht 160 cm; Wt 84.0 kg
[~2020-05-23 12:02] MED LIST changes: +MELO15TA14 PO
[2020-05-23 12:04] VITALS: BP 168/100
[2020-05-23] MEDS ORDERED: TETANUS,DIPTH,PERTUSS P/F (BOOSTRIX) 0.5 ML VIAL IM ONE (12:15)
[2020-05-23] MEDS ORDERED: CEPHALEXIN 250 MG (KEFLEX) CAP PO ONE (12:15)
[2020-05-23] MEDS ORDERED: HYDROcodone/APAP 5 MG/325 MG (LORTAB) TAB PO ONE (12:15)
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
[2020-05-23] MEDS ORDERED: CEPH500T PO (12:22)
== END 2020-05-23 12:33 | disposition home or self-care (01) ==
LOC: EDUNIT# 12:02 → ER 12:03
DX: T25.221A Burn of second degree of right foot, initial encounter (principal); T25.222A Burn of second degree of left foot, initial encounter; J44.9 Chronic obstructive pulmonary disease, unspecified; I10 Essential (primary) hypertension; G20 Parkinson's disease; K21.9 Gastro-esophageal reflux disease without esophagitis; E11.9 Type 2 diabetes mellitus 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s; Z23 Encounter for immunization; Z82.61 Family history of arthritis; Z83.3 Family history of diabetes mellitus; Z82.49 Family history of ischemic heart disease and other diseases of the circulatory system; Z80.9 Family history of malignant neoplasm, unspecified; Z86.73 Personal history of transient ischemic attack (TIA), and cerebral infarction without residual deficits; Z86.718 Personal history of other venous thrombosis and embolism; Z77.22 Contact with and (suspected) exposure to environmental tobacco smoke (acute) (chronic); Z79.01 Long term (current) use of anticoagulants; Z79.84 Long term (current) use of oral hypoglycemic drugs; W16.212A Fall in (into) filled bathtub causing other injury, initial encounter
CPT/HCPCS: 90715; 99284

== ENCOUNTER 2020-12-27 15:23 | Emergency (ER) | payer MEDICARE, MEDICAID ==
[~2020-12-27] VITALS: Ht 160 cm; Wt 86.6 kg
[~2020-12-27 15:23] MED LIST changes: +CARB-275 PO; -CARB1TAB6 PO; +CEPH500T PO; -LISI-556 PO; +LISI-729 PO
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
--- NOTE | 2020-12-27 17:01 | Diagnostic Imaging Report ---
HISTORY: Right ankle and foot pain COMPARISON: None TECHNIQUE: 3 views of the right ankle FINDINGS: No acute fracture is seen in the right ankle. There is a well-corticated ossification adjacent to the medial malleolus which appears chronic. There are also chronic appearing corticated ossifications at the tip of the lateral malleolus. There is no significant joint effusion. There is a moderate plantar calcaneal enthesophyte. There is marked soft tissue swelling about the right ankle in the lower leg and the foot. IMPRESSION: 1. Chronic findings in the right ankle with no acute fracture seen. 2. Marked diffuse soft tissue swelling. Dictated by: Dictated on workstation # [id number]
[2020-12-27 17:13] VITALS: BP 115/70
== END 2020-12-27 17:13 | disposition home or self-care (01) ==
LOC: EDUNIT# 15:23 → ER 15:24
DX: M25.571 Pain in right ankle and joints of right foot (principal); I10 Essential (primary) hypertension; E11.40 Type 2 diabetes mellitus with diabetic neuropathy, unspecified; J44.9 Chronic obstructive pulmonary disease, unspecified; G89.29 Other chronic pain; M54.2 Cervicalgia; K21.9 Gastro-esophageal reflux disease without esophagitis; G20 Parkinson's disease; I48.91 Unspecified atrial fibrillation; F17.210 Nicotine dependence, cigarettes, uncomplicated; Z79.84 Long term (current) use of oral hypoglycemic drugs; Z79.01 Long term (current) use of anticoagulants; Z79.1 Long term (current) use of non-steroidal anti-inflammatories (NSAID); Z79.891 Long term (current) use of opiate analgesic; Z79.899 Other long term (current) drug therapy
CPT/HCPCS: 73610

== ENCOUNTER 2021-09-16 13:52 | Emergency (ER) | payer MEDICARE, MEDICAID ==
[~2021-09-16] VITALS: Ht 160 cm; Wt 83.9 kg
[~2021-09-16 13:52] MED LIST changes: -LEVO500T80 PO; +LEVO500T81 PO; -LISI-729 PO; +LISI5TAB20 PO; +POTA-169 PO; +POTA-179 PO; -POTA20TA15 PO; -POTA20TA8 PO
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
[2021-09-16] MEDS ORDERED: LIDOCAINE 4% (SALONPAS) PATCH TOP STA (14:26)
[2021-09-16] MEDS ORDERED: ORPHENADRINE 60 MG/2 ML (NORFLEX) AMP (ED ONLY) IM ONE (14:30)
--- NOTE | 2021-09-16 15:09 | Diagnostic Imaging Report ---
PROCEDURE: CT lumbar spine without contrast. TECHNIQUE: Multiple contiguous axial images were obtained through the lumbar spine without the use of intravenous contrast. Sagittal and coronal reformations were then performed. Auto Exposure Controls were utilized during the CT exam to meet ALARA standards for radiation dose reduction. INDICATION: Fall, back pain. COMPARISON: Thoracolumbar CT of 01/06/2018. FINDINGS: Surgical changes to the sacrum and right SI joint, unchanged from prior. The lumbar vertebral statures are stable and normal. The alignment is anatomic. The pedicles and pars are intact. No acute or suspicious endplate irregularity. No fracture identified. No splaying of the posterior elements. No abnormal widening of the disc spaces. No paraspinal mass, hemorrhage or fluid collection. No acute finding. No change. IMPRESSION: Stable postoperative sequelae. No lumbar fracture, high-grade stenosis or traumatic malalignment. Dictated by: Dictated on workstation # [id number]
[2021-09-16] MEDS ORDERED: CYCL10TA25 PO (15:29)
[2021-09-16 15:40] VITALS: BP 148/87
== END 2021-09-16 15:41 | disposition home or self-care (01) ==
LOC: EDUNIT# 13:52 → ER 13:53
DX: M54.50 Low back pain, unspecified (principal); F17.210 Nicotine dependence, cigarettes, uncomplicated
CPT/HCPCS: 72131; 99284

== ENCOUNTER → 2021-10-17 | Outpatient (CLI) | payer MEDICARE, MEDICAID ==
[~2021-10-17] MED LIST changes: +CYCL10TA25 PO
--- NOTE | 2021-10-17 13:23 | Diagnostic Imaging Report ---
INDICATION: Acute left ankle pain. COMPARISON: None available. TECHNIQUE: Three radiographs of the left ankle dated 10/17/2021. FINDINGS: Lateral plate and screw fixation of the distal fibula is noted. Screws with associated cerclage wires are also noted involving the distal tibia/medial malleolus. No evidence of hardware complication. No acute fracture. No dislocation. The talar dome is unremarkable. Irregularity of the articular surface of the tibial plafond is noted with associated subchondral lucencies and osteophyte formation. The ankle mortise appears symmetric. Diffuse soft tissue swelling is noted about the ankle extending into the foot. No suspicious radiopaque foreign body. IMPRESSION: Post surgical changes associated with the distal tibia and fibula without hardware complication. Moderate degenerative changes of the ankle joint with significant subchondral cyst formation. Diffuse soft tissue swelling involving the ankle and foot. Dictated by: Dictated on workstation # [id number]
== END ==
LOC: RAD FS 11:33
PROVIDERS: ATTEND Family Medicine
DX: M19.072 Primary osteoarthritis, left ankle and foot (principal); M25.872 Other specified joint disorders, left ankle and foot; Z98.890 Other specified postprocedural states
CPT/HCPCS: 73610

== ENCOUNTER 2021-11-30 11:41 | Emergency (ER) | payer MEDICARE, MEDICAID ==
[~2021-11-30] VITALS: Ht 160 cm; Wt 81.0 kg
[~2021-11-30 11:41] MED LIST changes: +ACET-17 PO; -ACET1TAB45 PO
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
[2021-11-30] MEDS ORDERED: OXYMETAZOLINE (AFRIN) 0.05% NA 30 ML BTL ONE (12:13)
[2021-11-30 12:27] LABS: BASOPHILS # (AUTO) 0.1 10^3/uL (0.0-0.1); BASOPHILS % (AUTO) 1 % (0-10); EOSINOPHILS # (AUTO) 0.3 10^3/uL (0.0-0.3); EOSINOPHILS % (AUTO) 4 % (0-10); HEMATOCRIT 39 % (40-54); HEMOGLOBIN 13.4 g/dL (13.3-17.7); LYMPHOCYTES # (AUTO) 2.3 10^3/uL (1.0-4.0); LYMPHOCYTES % (AUTO) 28 % (12-44); MEAN CORPUSCULAR HEMOGLOBIN 32 pg (25-34); MEAN CORPUSCULAR HGB CONC 34 g/dL (32-36); MEAN CORPUSCULAR VOLUME 94 fL (80-99); MEAN PLATELET VOLUME 10.2 fL (9.0-12.2); MONOCYTES # (AUTO) 0.7 10^3/uL (0.0-1.0); MONOCYTES % (AUTO) 8 % (0-12); NEUTROPHILS # (AUTO) 4.8 10^3/uL (1.8-7.8); NEUTROPHILS % (AUTO) 59 % (42-75); PLATELET COUNT 233 10^3/uL (130-400); WHITE BLOOD COUNT 8.2 10^3/uL (4.3-11.0)
[2021-11-30 12:40] LABS: ALBUMIN 4.3 GM/DL (3.2-4.5); CHLORIDE 102 MMOL/L (98-107); INR 2.4 (0.8-1.4); POTASSIUM 3.6 MMOL/L (3.6-5.0); PROTHROMBIN TIME PATIENT 26.7 SEC (12.2-14.7); SODIUM 140 MMOL/L (135-145)
[2021-11-30 12:41] LABS: CALCIUM 8.9 MG/DL (8.5-10.1)
[2021-11-30 12:42] LABS: GLUCOSE 96 MG/DL (70-105)
[2021-11-30 12:43] LABS: TOTAL PROTEIN 7.6 GM/DL (6.4-8.2)
[2021-11-30 12:44] LABS: BILIRUBIN,TOTAL 0.6 MG/DL (0.1-1.0); CARBON DIOXIDE 26 MMOL/L (21-32)
[2021-11-30 12:46] LABS: ALKALINE PHOSPHATASE 59 U/L (40-136); CREATININE SERUM 1.59 MG/DL (0.60-1.30); GFR ESTIMATED 46
[2021-11-30 12:47] LABS: BUN/CREATININE RATIO 14
[2021-11-30 12:49] LABS: ALANINE AMINOTRANSFERASE < 6 U/L (0-55)
[2021-11-30 12:57] VITALS: BP 120/78
[2021-11-30] MEDS ORDERED: OXYMETAZOLINE (AFRIN) 0.05% NA 30 ML BTL SCH (21:00)
== END 2021-11-30 12:57 | disposition home or self-care (01) ==
LOC: EDUNIT# 11:41 → ER 11:42
DX: R04.0 Epistaxis (principal); I12.9 Hypertensive chronic kidney disease with stage 1 through stage 4 chronic kidney disease, or unspecified chronic kidney disease; N18.9 Chronic kidney disease, unspecified; E11.22 Type 2 diabetes mellitus with diabetic chronic kidney disease; E11.40 Type 2 diabetes mellitus with diabetic neuropathy, unspecified; R94.4 Abnormal results of kidney function studies; Z79.4 Long term (current) use of insulin; Z79.01 Long term (current) use of anticoagulants; Z79.899 Other long term (current) drug therapy
CPT/HCPCS: 36415; 80053; 85025; 85610; 85730

== ENCOUNTER 2021-12-26 22:29 | Emergency (ER) | payer MEDICARE, MEDICAID ==
[~2021-12-26] VITALS: Ht 160 cm; Wt 81.6 kg
[2021-12-26 22:59] VITALS: BP 167/104
[2021-12-27 00:33] LABS: BILIRUBIN,URINE NEGATIVE (NEGATIVE); CLARITY,URINE CLEAR; COLOR,URINE YELLOW; GLUCOSE, URINE (UA) NEGATIVE (NEGATIVE); KETONES,URINE NEGATIVE (NEGATIVE); LEUKOCYTE ESTERASE ,URINE NEGATIVE (NEGATIVE); NITRITE,URINE NEGATIVE (NEGATIVE); PROTEIN,URINE NEGATIVE (NEGATIVE)
[2021-12-27 00:48] LABS: BACTERIA,URINE NEGATIVE /HPF; SQUAMOUS EPITHELIAL CELL,UR RARE /HPF
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
[2021-12-27] MEDS ORDERED: ACETAMINOPHEN 500 MG TAB (TYLENOL) PO ONE (01:15)
[2021-12-27] MEDS ORDERED: IBUPROFEN 800 MG (MOTRIN) TAB PO ONE (01:15)
[2021-12-27 03:12] LABS: AMPHETAMINE SCREEN, URINE NEGATIVE (NEGATIVE); BARBITURATE SCREEN URINE NEGATIVE (NEGATIVE); BENZODIAZEPINES SCREEN URINE NEGATIVE (NEGATIVE); CANNABINOID SCREEN, URINE NEGATIVE (NEGATIVE); COCAINE SCREEN URINE NEGATIVE (NEGATIVE); METHADONE STAT NEGATIVE (NEGATIVE); OPIATE SCREEN URINE POSITIVE (NEGATIVE); OXYCODONE STAT NEGATIVE (NEGATIVE); PROPOXYPHENE STAT NEGATIVE (NEGATIVE); TRICYCLIC ANTIDEPRESSANTS SCRE NEGATIVE (NEGATIVE)
== END 2021-12-27 01:52 | disposition home or self-care (01) ==
LOC: EDUNIT# 22:29 → ER 22:32
DX: G89.29 Other chronic pain (principal); R10.2 Pelvic and perineal pain; Z87.19 Personal history of other diseases of the digestive system
CPT/HCPCS: 51701; 80306; 81000

== ENCOUNTER 2022-01-25 06:45 | Outpatient (CLI) | payer MEDICARE, MEDICAID ==
[~2022-01-25] VITALS: Ht 160 cm; Wt 81.8 kg
[2022-01-25] MEDS ORDERED: HYDR80TA PO (12:55)
[2022-01-25] MEDS ORDERED: CARB-275 PO (12:55)
[2022-01-25] MEDS ORDERED: GABA300C PO (13:02)
== END 2022-01-25 13:03 | disposition home or self-care (01) ==
LOC: PREOP 06:45
PROVIDERS: ATTEND Surgery
DX: Z01.818 Encounter for other preprocedural examination (principal)

== ENCOUNTER 2022-02-07 08:05 | Day surgery (SDC) | payer MEDICARE, MEDICAID ==
[~2022-02-07] VITALS: Ht 160 cm; Wt 81.8 kg
[~2022-02-07 08:05] MED LIST changes: +GABA300C PO; +HYDR80TA PO
[2022-02-07] MEDS ORDERED: LACTATED RINGERS 1,000 ML IV STA (08:19)
[2022-02-07 08:25] VITALS: BP 136/77
--- NOTE | 2022-02-07 08:26 | Progress Note-Pre Operative ---
Pre-Operative Progress Note H&P Reviewed The H&P was reviewed, patient examined and no changes noted. Time Seen by Provider: 08:25 Date H&P Reviewed: Feb 07, 2022 Time H&P Reviewed: 08:25 Pre-Operative Diagnosis: Screening Colonoscopy, Chronic Gastritis SUE BOWLING DO Feb 07, 2022 08:26
[2022-02-07] MEDS ORDERED: HURRICAINE EXT TUBE (BENZOCAINE) XX PRN (08:30)
[2022-02-07] MEDS ORDERED: PROPOFOL INJECTION 50 ML IV ONE (10:16)
[2022-02-07] MEDS ORDERED: MIDAZOLAM 2 MG/2 ML (VERSED) VIAL ONE (10:16)
[2022-02-07 10:55] VITALS: BP 101/55
[2022-02-07 11:00] VITALS: BP 160/86
--- NOTE | 2022-02-07 11:01 | Progress Note-Post Operative ---
Post-Operative Progess Note Surgeon (s)/Baggage Security Checker (s) Surgeon SUE BOWLING DO Baggage Security Checker: MARLENA Mccann Pre-Operative Diagnosis Screening Colonoscopy, Chronic Gastritis Post-Operative Diagnosis Gastritis Esophagitis Hiatal hernia Polyp diverticula int hemorrhoids poor prep Procedure & Operative Findings Date of Procedure 02/07/22 Procedure Performed/Findings EGD with bx Colonoscopy with snare polypectomy PROCEDURE NOTE: After informed consent was obtained, the patient was brought to the endoscopy suite, placed in bed in left lateral decubitus position. He was administered IV sedation by the BLOCK TRIMMER who then monitored vitals the entire time, heart rate, blood pressure and pulse ox and the scope was inserted down the mouth through the esophagus into the stomach. On the way down, noted some mild esophagitis, took a picture, pushed into the stomach, pushed past the antrum into the duodenum; duodenum looked good. The Pylorus appeared to be a little strictured; able to get scope past, but it was smaller than normal and difficult to get through. Pulled back and did a biopsy of the antrum/pylorus. Next retroflexed the scope and saw some severe gastritis and very small hiatal hernia; took a picture of these. Did a biopsy of the body of the stomach in this area and then pulled the scope into the GE junction and then did a biopsy. Pushed the scope back into the stomach, suctioned all the air out of the stomach. At this point pulled the scope up the esophagus and out the mouth. Switched camera, switched gloves, went down below and started the colonoscopy. Unfortunately patient was not very clean. Able to push all the way into about 140 cm to get all the way to cecum and took a picture of the appendiceal orifice. I thought I may have seen a large pedunculated polyp, but couldn't be sure it wasn't the ileocecal valve. Slowly withdrew the scope, insufflating to look circumferentially at the beverly starting in the cecum, up the ascending colon to the hepatic flexure, then down the transverse colon, splenic flexure, into the descending colon, down into the sigmoid and finally into the rectum. Throughout the colon there was a large amount of retained fecal material liquid and large vegetable matter; therefore unable to clear the colon. In the rectum saw a flat polyp and elected to remove it with a snare polypectomy. Finally in the rectal vault, saw some minimal internal hemorrhoids. Pt will need repeat in the next few months. The patient tolerated the procedure and he recovered in the endoscopy suite. Anesthesia Type IV sedation by BLOCK TRIMMER Estimated Blood Loss Estimated blood loss (mL): scant Specimens/Packing Specimens Removed antral/pyloric bx body of stomach bx GE jxn bx rectal polyp SUE BOWLING DO Feb 07, 2022 11:01
[2022-02-07 11:02] VITALS: BP 160/86
--- NOTE | 2022-02-07 11:14 | Endoscopy Discharge Instruct ---
Endo Procedure/Findings Findings 1.: Gastritis, Other Findings (esophagitis) 2.: Hiatal Hernia 3.: Polyp, Diverticulosis 4.: Internal Hemorrhoids, Other Findings (poor prep) Discharge Instructions - Activity: You might feel a little sleepy until tomorrow. This is due to the medicine you received to relax you. Until tomorrow, you should: NOT drive a car, operate machinery or power tools. NOT drink any alcoholic beverages. NOT make any important decisions or sign importortant papers. Do not return to work until tomorrow, unless otherwise instructed. Resume previous activities tomorrow. Diet: Start by taking liquids. If you tolerate liquids, advance to solid food. 1.: EGD in 1 year 2.: Other Recommendation (Colonoscopy in next few months) Notify Physician - If you experience excessive bleeding, unusual abdominal pain, fever, or chest pain, contact your doctor immediately. SUE BOWLING DO Feb 07, 2022 11:14
[2022-02-07 11:30] VITALS: BP 143/84
--- NOTE | 2022-02-07 12:03 | Anesthesia-General Post-Op ---
MAC Patient Condition Mental Status/LOC: Same as Preop Cardiovascular: Satisfactory Nausea/Vomiting: Absent Respiratory: Satisfactory Pain: Controlled Complications: Absent Post Op Complications Complications None Follow Up Care/Instructions Patient Instructions None needed. Anesthesiology Discharge Order Discharge Order Patient is doing well, no complaints, stable vital signs, no apparent adverse anesthesia problems. No complications reported per nursing. JHON MIDDLETON CRNA Feb 07, 2022 12:03
== END 2022-02-07 11:41 | disposition home or self-care (01) ==
LOC: ENDO 08:05
PROVIDERS: ATTEND Surgery
DX: Z12.11 Encounter for screening for malignant neoplasm of colon (principal); D12.8 Benign neoplasm of rectum; K57.30 Diverticulosis of large intestine without perforation or abscess without bleeding; K64.8 Other hemorrhoids; K29.50 Unspecified chronic gastritis without bleeding; K44.9 Diaphragmatic hernia without obstruction or gangrene; K21.00 Gastro-esophageal reflux disease with esophagitis, without bleeding; K22.70 Barrett's esophagus without dysplasia; K31.89 Other diseases of stomach and duodenum; F17.210 Nicotine dependence, cigarettes, uncomplicated; E66.9 Obesity, unspecified; Z68.32 Body mass index [BMI] 32.0-32.9, adult
CPT/HCPCS: 82947; 88305

== ENCOUNTER → 2022-05-04 | Outpatient (CLI) | payer MEDICARE, MEDICAID ==
[~2022-05-04] MED LIST changes: -CARB1TAB19; +CARB1TAB32; +LEVO-55 PO; -LEVO500T81 PO
--- NOTE | 2022-05-04 18:34 | Diagnostic Imaging Report ---
INDICATION: Right hand pain COMPARISON: None available TECHNIQUE: 3 radiographs of the right hand dated 05/04/2022. FINDINGS: A small calcification is noted along the medial aspect of the 3rd metacarpal head. No definite fracture donor site identified at this location. No additional fracture. No dislocation. Mild scattered degenerative changes are present, greatest involving the 2nd and 3rd MCP joints. Carpal alignment is well-maintained. Scapholunate intervals within normal limits. No suspicious radiopaque foreign body. IMPRESSION: Small ossific density adjacent to the 3rd metacarpal head. This is favored to relate to osteophyte formation, though age-indeterminate fracture not completely excluded. Recommend correlation for focal pain in this location. Mild scattered degenerative changes, greatest involving the 3rd MCP joint and 2nd MCP joint. Dictated by: Dictated on workstation # [id number]
== END ==
LOC: RAD FS 10:59
PROVIDERS: ATTEND Family Medicine
DX: M19.041 Primary osteoarthritis, right hand (principal)
CPT/HCPCS: 73130

== ENCOUNTER 2022-06-17 17:54 | Emergency (ER) | payer MEDICARE, MEDICAID ==
[~2022-06-17] VITALS: Ht 160 cm; Wt 80.0 kg
[2022-06-17 18:05] VITALS: BP 201/105
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
--- NOTE | 2022-06-17 18:42 | Diagnostic Imaging Report ---
CLINICAL HISTORY: Right hand pain. COMPARISON: 05/04/2022. TECHNIQUE: 3 views of the right hand. FINDINGS: There is no acute fracture or dislocation of the right hand. Alignment is anatomic. No suspicious focal osseous lesion. IMPRESSION: No acute fracture or dislocation in the right hand. Given the persistent symptoms, further evaluation may be indicated with outpatient MRI of the right hand. Dictated by: Dictated on workstation # [id number]
[2022-06-17] MEDS ORDERED: KETOROLAC 60 MG/2 ML VIAL IM STA (19:09)
[2022-06-17 19:46] LABS: BASOPHILS % (AUTO) 0 % (0-10); EOSINOPHILS # (AUTO) 0.2 10^3/uL (0.0-0.3); EOSINOPHILS % (AUTO) 2 % (0-10); HEMATOCRIT 40 % (40-54); HEMOGLOBIN 13.5 g/dL (13.3-17.7); LYMPHOCYTES # (AUTO) 1.7 10^3/uL (1.0-4.0); LYMPHOCYTES % (AUTO) 16 % (12-44); MEAN CORPUSCULAR HEMOGLOBIN 31 pg (25-34); MEAN CORPUSCULAR HGB CONC 34 g/dL (32-36); MEAN CORPUSCULAR VOLUME 93 fL (80-99); MEAN PLATELET VOLUME 10.8 fL (9.0-12.2); MONOCYTES # (AUTO) 0.6 10^3/uL (0.0-1.0); MONOCYTES % (AUTO) 6 % (0-12); NEUTROPHILS # (AUTO) 7.9 10^3/uL (1.8-7.8); NEUTROPHILS % (AUTO) 76 % (42-75); PLATELET COUNT 224 10^3/uL (130-400); WHITE BLOOD COUNT 10.5 10^3/uL (4.3-11.0)
[2022-06-17] MEDS ORDERED: DICL20GE TP (19:47)
[2022-06-17 20:40] LABS: ERYTHROCYTE SEDIMENTATION RATE 20 MM/HR (0-30)
[2022-06-17 20:43] LABS: ALBUMIN 3.9 GM/DL (3.2-4.5); BILIRUBIN,TOTAL 0.4 MG/DL (0.1-1.0); CREATININE SERUM 1.55 MG/DL (0.60-1.30); POTASSIUM 3.5 MMOL/L (3.6-5.0); TOTAL PROTEIN 7.4 GM/DL (6.4-8.2); URIC ACID 10.9 MG/DL (2.6-7.2)
[2022-06-17] MEDS ORDERED: COLC0.6T59 PO (20:46)
== END 2022-06-17 21:01 | disposition home or self-care (01) ==
LOC: EDUNIT# 17:54 → ER 17:56
DX: M19.041 Primary osteoarthritis, right hand (principal); E79.0 Hyperuricemia without signs of inflammatory arthritis and tophaceous disease; E11.21 Type 2 diabetes mellitus with diabetic nephropathy; F17.210 Nicotine dependence, cigarettes, uncomplicated
CPT/HCPCS: 36415; 73130; 80053; 84550; 85025; 85652; 86141

== ENCOUNTER 2022-08-16 05:59 | Outpatient (CLI) | payer MEDICARE, MEDICAID ==
[~2022-08-16] VITALS: Ht 160 cm; Wt 75.7 kg
[~2022-08-16 05:59] MED LIST changes: +COLC0.6T59 PO; +DICL20GE TP
[2022-08-16] MEDS ORDERED: RT-ALBUINH INH (16:25)
[2022-08-16] MEDS ORDERED: METH-731 PO (16:25)
[2022-08-16] MEDS ORDERED: ATOR10TA66 PO (16:25)
[2022-08-16] MEDS ORDERED: AMIT25TA9 PO (16:25)
[2022-08-16] MEDS ORDERED: HYDR80TA PO (16:25)
[2022-08-16] MEDS ORDERED: OXYB5TAB13 PO (16:25)
[2022-08-16] MEDS ORDERED: FURO40TA4 PO (16:25)
[2022-08-16] MEDS ORDERED: FLUT16SP22 NS (16:25)
[2022-08-16] MEDS ORDERED: POTA20PA34 PO (16:25)
[2022-08-16] MEDS ORDERED: TORS20TA3 PO (16:25)
[2022-08-16] MEDS ORDERED: DULO60CA59 PO (16:25)
[2022-08-16] MEDS ORDERED: RIVA20TA PO (16:25)
[2022-08-16] MEDS ORDERED: HYDR200T46 PO (16:25)
[2022-08-16] MEDS ORDERED: SIMV20TA26 PO (16:25)
[2022-08-16] MEDS ORDERED: FINA5TAB6 PO (16:25)
[2022-08-16] MEDS ORDERED: OMEP40CA6 PO (16:25)
[2022-08-16] MEDS ORDERED: METO-333 PO (16:25)
== END 2022-08-16 16:28 | disposition home or self-care (01) ==
LOC: PREOP 05:59
PROVIDERS: ATTEND Surgery
DX: Z01.818 Encounter for other preprocedural examination (principal)

== ENCOUNTER 2022-09-25 07:37 | Day surgery (SDC) | payer MEDICARE, MEDICAID ==
[~2022-09-25] VITALS: Ht 160 cm; Wt 75.7 kg
[~2022-09-25 07:37] MED LIST changes: -CARB-275 PO; +CARB-300 PO; +FINA5TAB6 PO; +FLUT16SP22 NS; +METH-731 PO; +METO-333 PO; +OMEP40CA6 PO; +POTA20PA34 PO; +RIVA20TA PO; +RT-ALBUINH INH; +SIMV20TA26 PO
[2022-09-25] MEDS ORDERED: LACTATED RINGERS 1,000 ML IV ONE (07:48)
[2022-09-25 08:00] VITALS: BP 141/81
[2022-09-25] MEDS ORDERED: LACTATED RINGERS 1,000 ML IV STA (08:01)
[2022-09-25] MEDS ORDERED: HURRICAINE EXT TUBE (BENZOCAINE) XX PRN (08:15)
--- NOTE | 2022-09-25 08:34 | Progress Note-Pre Operative ---
Pre-Operative Progress Note Date of Available H&P: Sep 25, 2022 Date H&P Reviewed: Sep 25, 2022 Time H&P Reviewed: 08:31 History & Physical: H&P Reviewed, Patient Examed, No changes noted Pre-Operative Diagnosis: Hx of Drake's, Hx of colon polyps SUE BOWLING DO Sep 25, 2022 08:34
[2022-09-25] MEDS ORDERED: PROPOFOL INJECTION 50 ML IV ONE (08:44)
--- NOTE | 2022-09-25 09:13 | Anesthesia-General Post-Op ---
MAC Patient Condition Mental Status/LOC: Same as Preop Cardiovascular: Satisfactory Nausea/Vomiting: Absent Respiratory: Satisfactory Pain: Controlled Complications: Absent Post Op Complications Complications None Follow Up Care/Instructions Patient Instructions None needed. Anesthesiology Discharge Order Discharge Order Patient is doing well, no complaints, stable vital signs, no apparent adverse anesthesia problems. No complications reported per nursing. KULWANT GUEVARA CRNA Sep 25, 2022 09:13
[2022-09-25 09:15] VITALS: BP 101/59
[2022-09-25 09:20] VITALS: BP 97/55
[2022-09-25 09:25] VITALS: BP 105/55
[2022-09-25 09:30] VITALS: BP 115/63
--- NOTE | 2022-09-25 10:00 | Progress Note-Post Operative ---
Post-Operative Progess Note Surgeon (s)/Medical Coding Instructor (s) Surgeon SUE BOWLING DO Medical Coding Instructor: Edil Sabarby, MSIII Pre-Operative Diagnosis Hx of Drake's, Hx of colon polyps Post-Operative Diagnosis Esophagitis Hiatal hernia Gastritis Colon polyp Diverticula int hemorrhoids poor prep Procedure & Operative Findings Date of Procedure 09/25/22 Procedure Performed/Findings EGD with biopsy Colonoscopy with snare polypectomy PROCEDURE NOTE: After informed consent was obtained, the patient was brought to the endoscopy suite, placed in bed in left lateral decubitus position. He was administered IV sedation by the ASSISTANT SPA DIRECTOR who then monitored vitals the entire time, heart rate, blood pressure and pulse ox and the scope was inserted down the mouth through the esophagus into the stomach. On the way down, noted some mild esophagitis, took a picture, pushed into the stomach, pushed past the antrum into the duodenum. Duodenum looked good. Pulled back and did a biopsy of antrum, then retroflexed the scope, saw hiatal hernia, took a picture of this and then pulled the scope into the GE junction, took another picture of the hiatal hernia and then did a biopsy of the GE junction. Pushed the scope back into the stomach, suctioned all the air out of the stomach. At this point pulled the scope up the esophagus and out the mouth. Switched camera, switched gloves, went down below and started the colonoscopy. Pushed all the way to about 150 cm and pushed into the cecum, tried to take a picture of appendiceal orifice, but there was fecal material covering it. Noted the ileocecal valve; it was in the picture. Then slowly withdrew the scope insufflating to look circumferentially at the beverly starting in the cecum, up the ascending colon to the hepatic flexure, then down the transverse colon to the splenic flexure and into the descending colon. I found a larger polyp here that I removed with snare polypectomy. I also saw multiple diveticula on the left side of colon. There was a lot of retained fecal material and couldn't see all of the beverly. Next, down to the sigmoid and then into the rectal vault and while removing the scope; took a picture of the internal hemorrhoids. The patient tolerated the procedure and he recovered in the endoscopy suite. Recommended for repeat colonoscopy in 1 year because of the poor prep. Anesthesia Type IV sedation by ASSISTANT SPA DIRECTOR Estimated Blood Loss Estimated blood loss (mL): scant Specimens/Packing Specimens Removed antral bx body of stomach bx GE jxn bx Desc colon polyp SUE BOWLING DO Sep 25, 2022 10:00
--- NOTE | 2022-09-25 10:01 | Endoscopy Discharge Instruct ---
Endo Procedure/Findings Findings 1.: Gastritis 2.: Hiatal Hernia 3.: Polyp 4.: Diverticulosis, Internal Hemorrhoids Discharge Instructions - Activity: You might feel a little sleepy until tomorrow. This is due to the medicine you received to relax you. Until tomorrow, you should: NOT drive a car, operate machinery or power tools. NOT drink any alcoholic beverages. NOT make any important decisions or sign importortant papers. Do not return to work until tomorrow, unless otherwise instructed. Resume previous activities tomorrow. Diet: Start by taking liquids. If you tolerate liquids, advance to solid food. 1.: EGD in 3 years 2.: Colonoscopy in 1 year Notify Physician - If you experience excessive bleeding, unusual abdominal pain, fever, or chest pain, contact your doctor immediately. SUE BOWLING DO Sep 25, 2022 10:01
[2022-09-25 10:15] VITALS: BP 115/63
== END 2022-09-25 10:16 | disposition home or self-care (01) ==
LOC: ENDO 07:37
PROVIDERS: ATTEND Surgery
DX: Z12.11 Encounter for screening for malignant neoplasm of colon (principal); D12.4 Benign neoplasm of descending colon; K22.70 Barrett's esophagus without dysplasia; K44.9 Diaphragmatic hernia without obstruction or gangrene; K29.70 Gastritis, unspecified, without bleeding; K57.30 Diverticulosis of large intestine without perforation or abscess without bleeding; K64.8 Other hemorrhoids; K31.89 Other diseases of stomach and duodenum; E11.9 Type 2 diabetes mellitus 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s; E66.9 Obesity, unspecified; F17.210 Nicotine dependence, cigarettes, uncomplicated; Z79.84 Long term (current) use of oral hypoglycemic drugs; Z68.29 Body mass index [BMI] 29.0-29.9, adult
CPT/HCPCS: 82947

== ENCOUNTER 2022-10-24 10:02 | Emergency (ER) | payer MEDICARE, MEDICAID ==
[~2022-10-24] VITALS: Ht 160 cm; Wt 77.0 kg
[2022-10-24 10:41] LABS: BASOPHILS % (AUTO) 1 % (0-10); EOSINOPHILS # (AUTO) 0.1 10^3/uL (0.0-0.3); EOSINOPHILS % (AUTO) 2 % (0-10); HEMATOCRIT 38 % (40-54); HEMOGLOBIN 12.6 g/dL (13.3-17.7); LYMPHOCYTES # (AUTO) 1.3 10^3/uL (1.0-4.0); LYMPHOCYTES % (AUTO) 19 % (12-44); MEAN CORPUSCULAR HEMOGLOBIN 29 pg (25-34); MEAN CORPUSCULAR HGB CONC 33 g/dL (32-36); MEAN CORPUSCULAR VOLUME 87 fL (80-99); MEAN PLATELET VOLUME 10.7 fL (9.0-12.2); MONOCYTES # (AUTO) 0.7 10^3/uL (0.0-1.0); MONOCYTES % (AUTO) 10 % (0-12); NEUTROPHILS # (AUTO) 4.7 10^3/uL (1.8-7.8); NEUTROPHILS % (AUTO) 69 % (42-75); PLATELET COUNT 300 10^3/uL (130-400); WHITE BLOOD COUNT 6.9 10^3/uL (4.3-11.0)
[2022-10-24 10:58] LABS: ALBUMIN 4.5 GM/DL (3.2-4.5); CHLORIDE 102 MMOL/L (98-107); POTASSIUM 3.6 MMOL/L (3.6-5.0); SODIUM 139 MMOL/L (135-145)
[2022-10-24 10:59] LABS: CALCIUM 9.9 MG/DL (8.5-10.1)
[2022-10-24 11:01] LABS: GLUCOSE 116 MG/DL (70-105); TOTAL PROTEIN 8.1 GM/DL (6.4-8.2)
[2022-10-24 11:02] LABS: BILIRUBIN,TOTAL 0.5 MG/DL (0.1-1.0); CARBON DIOXIDE 25 MMOL/L (21-32)
[2022-10-24 11:04] LABS: ALKALINE PHOSPHATASE 75 U/L (40-136); CREATININE SERUM 1.52 MG/DL (0.60-1.30); GFR ESTIMATED 49
--- NOTE | 2022-10-24 11:04 | Diagnostic Imaging Report ---
INDICATION: Stroke, altered mental status. TECHNIQUE: Multiple contiguous axial images were obtained through the brain without the use of intravenous contrast. Auto Exposure Controls were utilized during the CT exam to meet ALARA standards for radiation dose reduction. Comparison made with 01/22/2018. There are diffuse atrophic changes. There is no subdural or epidural collection. There is no acute intracranial hemorrhage. There are mild chronic changes in deep white matter. Calvarial windows show evidence of previous left-sided craniotomy. There is no acute calvarial abnormality. IMPRESSION: Atrophy and chronic change in deep white matter with evidence of previous left-sided craniotomy. No acute intracranial finding. Dictated by: Dictated on workstation # [id number]
[2022-10-24 11:05] LABS: BUN/CREATININE RATIO 13
[2022-10-24 11:07] LABS: ALANINE AMINOTRANSFERASE < 6 U/L (0-55)
[2022-10-24] MEDS ORDERED: morphine INJ 10 MG/ML 1ML (SYR OR VIAL) IVP STA (11:12)
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
[2022-10-24 11:16] LABS: BILIRUBIN,URINE NEGATIVE (NEGATIVE); CLARITY,URINE CLEAR; COLOR,URINE DARK YELLOW; GLUCOSE, URINE (UA) NEGATIVE (NEGATIVE); KETONES,URINE NEGATIVE (NEGATIVE); LEUKOCYTE ESTERASE ,URINE NEGATIVE (NEGATIVE); NITRITE,URINE NEGATIVE (NEGATIVE); PROTEIN,URINE TRACE (NEGATIVE)
[2022-10-24 11:25] LABS: BACTERIA,URINE NEGATIVE /HPF; SQUAMOUS EPITHELIAL CELL,UR 0-2 /HPF; WBC,URINE RARE /HPF
[2022-10-24 14:01] VITALS: BP 136/74
== END 2022-10-24 14:04 | disposition home or self-care (01) ==
LOC: EDUNIT# 10:02 → ER 10:04
DX: G89.29 Other chronic pain (principal); R41.82 Altered mental status, unspecified; F17.210 Nicotine dependence, cigarettes, uncomplicated; Z91.14 Patient's other noncompliance with medication regimen
CPT/HCPCS: 36415; 70450; 80053; 81000; 82947; 85025; 86141

== ENCOUNTER 2023-05-14 09:12 | Outpatient (CLI) | payer MEDICARE, MEDICAID ==
[~2023-05-14] VITALS: Ht 160 cm; Wt 75.8 kg
[~2023-05-14 09:12] MED LIST changes: +DILT180C71 PO; -DILT180C82 PO; -HYDR200T46; +HYDR200T71; +HYDR200T71 PO; -LOSA100T57 PO; +LOSA100T58 PO; +ROPI2TAB52 PO; -ROPI2TAB6 PO
== END 2023-05-16 07:43 | disposition home or self-care (01) ==
LOC: PREOP 09:12
PROVIDERS: ATTEND Surgery
DX: Z01.818 Encounter for other preprocedural examination (principal)

== ENCOUNTER 2023-05-23 06:47 | Day surgery (SDC) | payer MEDICARE, MEDICAID ==
[2023-05-23] VITALS (11 sets, daily range): BP systolic 101–151; BP diastolic 54–88
[~2023-05-23] VITALS: Ht 160 cm; Wt 75.8 kg
[2023-05-23] MEDS ORDERED: ceFAZolin INJECTION 2,000 MG in NS (IVPB) 50 ML 50 ML IV ONE (07:00)
[2023-05-23] MEDS: LACTATED RINGERS 1,000 ML 1,000 ML IV PRN ×2 (07:32→09:33)
[2023-05-23] MEDS ORDERED: SEVOFLURANE (ULTANE) 15 ML INHAL SOLN ONE (07:44)
[2023-05-23] MEDS ORDERED: ONDANSETRON INJECTION 4 MG/2 ML (SDV) ONE (07:44)
[2023-05-23] MEDS ORDERED: LIDOCAINE PF 2% 5 ML VIAL ONE (07:44)
[2023-05-23] MEDS ORDERED: proPOfol INJECTION 200 MG/20 ML VIAL IV ONE (07:44)
[2023-05-23] MEDS ORDERED: MIDAZOLAM INJ 2 MG/2 ML VIAL ONE (07:45)
[2023-05-23] MEDS ORDERED: fentaNYL INJECTION 100 MCG/2 ML VIAL ONE (07:45)
[2023-05-23] MEDS ORDERED: LIDOCAINE 2% w/EPI 1:100,000 20 ML VIAL ONE (08:09)
--- NOTE | 2023-05-23 08:52 | Progress Note-Pre Operative ---
Pre-Operative Progress Note Date of Available H&P: Jun 08, 2023 Date H&P Reviewed: May 23, 2023 Time H&P Reviewed: 08:42 History & Physical: H&P Reviewed, Patient Examed, No changes noted Pre-Operative Diagnosis: right inguinal hernia, site marked SUE BOWLING DO May 23, 2023 08:52
[2023-05-23] MEDS ORDERED: LIDOCAINE 2% w/EPI 1:100,000 20 ML VIAL INJ ONE (09:43)
[2023-05-23] MEDS ORDERED: ROCURONIUM 50 MG/5 ML VIAL IV ONE (10:38)
[2023-05-23] MEDS ORDERED: GLYCOPYRROLATE INJ 0.2 MG/ML 2 ML VIAL ONE (10:41)
[2023-05-23] MEDS ORDERED: NEOSTIGMINE 1 MG/1ML 10 ML VIAL ONE (10:41)
--- NOTE | 2023-05-23 10:48 | Progress Note-Post Operative ---
Post-Operative Progess Note Surgeon (s)/Divemaster (s) Surgeon SUE BOWLING DO Divemaster: Linda Pre-Operative Diagnosis right inguinal hernia, site marked Post-Operative Diagnosis Same - recurrent with appendix trapped in hernia sac Procedure & Operative Findings Date of Procedure 05/23/23 Procedure Performed/Findings Laparoscopic Right inguinal Herniarraphy with mesh placement - Robotic After informed consent was obtained, the patient was brought to the operating room and placed on the operating table in a supine position. He was sterilely prepped and draped in a normal fashion. Local lidocaine was used to infiltrate the skin above the umbilicus. I made an incision with #11 blade, carried down to the skin into subcutaneous tissue and then deepened down the subcutaneous tissue with Bovie electrocautery down to the fascia. Fascia was incised with Bovie electrocautery and bluntly entered the abdomen, swept a finger around, placed 0 Vicryl [id number] suture and placed limited trocar port under direct visualization. Created pneumoperitoneum, able to visualize the hernia and took a picture of this and then placed two 8 mm ports about 10 cm on either side of the midline port using a local lidocaine, 11 blade for stab incision and then advanced the robotic port under direct visualization. Once this was in, I then placed the patient in Trendelenburg and then placed the working instruments, the fenestrated bipolar and the scissors. Looked on the left side and did not s ee any signs of inguinal hernia. I could see the large recurrent indirect hernia defect on the right side. Next, I came across the peritoneum approximately 8 cm away from the hernia defect, going across laterally starting lateral about 17cm and cutting toward the median umbilical ligament. I then carefully dissected the visceral peritoneum away and down and then in the midline, went through the parietal side and dissected down to the pubic tubercle, dissecting this down carefully pushing the peritoneum away, I was able to then visualize the pubic tubercle and Charles's ligament. I also saw a large direct defect. I went 2 cm posterior and at this point, we then had a critical view of the dissection, able to dissect 2 cm across the midline to the right side, 2 cm posterior to the Charles's ligament, able to then parietalize the vas deferens and spermatic vessels right at the groove between Charles's and iliac vein and able to dissect, make sure there was no peritoneum between those two, able to see the indirect hernia space, took a picture of this, looked at the femoral space (no hernia seen). Then I carefully teased out the hernia sac and could visualize the indirect hernia space. With teasing out the sac the appendix also came out. Next I looked on the cord and cord structures. There was no cord lipoma. I could clearly see the inguinal canal and the indirect space. Next I carried the posterior lateral dissection all the way out and then placed a 12 x 17 Midwieght Bard 3DMax mesh. It laid in nicely, covered both of the hernia defects and the rest of the area. It was above the peritoneum, Dr. Mckeon then passe in the suture and I sutured it at the pubic tubercle. This was done with a 3-0 Vicryl suture and tied this off. This appeared to lay in very nicely. I then brought down the pneumoperitoneum to about 8 mmHg and then started closing the peritoneum. Started laterally and used a 2-0 V-lock barbed suture to start a running stitch to close the peritoneum. This was closed nicely, took a picture of the closure at this point, then removed both needles had switched to a suture transportation driver from the scissors. The patient was then placed back supine, removed all ports under direct visualization, allowed pneumoperitoneum to escape and then closed the supraumbilical incision, closing the fascia with 0 Vicryl suture previously placed. Copiously irrigated all incisions and then closed the two small 8 mm incisions with two interrupted 4-0 undyed Monocryl subcuticular stitches and closed the supraumbilical incision with three interrupted undyed Monocryl subcuticular stitch. Area was cleaned and dried. Dermabond was placed. The patient tolerated the procedure. The sponge, instrument and needle counts were correct at the end of the case. Dr. Mckeon assisted during this surgery by making incisions, closing incisions, helping to identify anatomy and passing/retrieving suture and needles. Anesthesia Type GET Estimated Blood Loss Estimated blood loss (mL): less than 5ml Specimens/Packing Specimens Removed none SUE BOWLING DO May 23, 2023 10:48
--- NOTE | 2023-05-23 10:50 | Discharge Inst-Surgical ---
Discharge Inst-Surgical Depart Medication/Instructions New, Converted or Re-Newed RX: Other (use home meds) Patient Instructions Follow up Appt: Make appointment for 1 week. [phone] Instructions: No lifting greater than 20 pounds. No strenuous activity. May shower in 24 hours, no tub bath or soaking. Use incentive spirometer at home as directed. No Smoking Skin/Wound Care: May remove bandages in am. You need to leave the Dermabond on incision it will fall off on it's own. Symptoms to Report: Appetite Changes, Extremity Discoloration, Numbness/Tingling, Swelling Increased, Bleeding Excessive, Eyesight Changes, Pain Increased, Urine Color Change, Constipation(Persistent), Fever over 101 degree F, Pain/Pressure in chest, Urinating Difficulty, Cough Up/Vomit Blood, Heart Beat Irreg/Pounding, Pain/Pressure in jaw, Cramps in feet or legs, Lightheadedness, Pain/Pressure in shoulder, Diarrhea(Persistent), Memory Changes Suddenly, Questions/Concerns, Weight gain consecutive days, Dizziness/Fainting, Nausea/Vomiting, Shortness of Breath, Weight gain over 2 pounds If questions or concerns contact your physician Or seek help at emergency department. Activity Activity as Tolerated: Yes Activity Instructions: Avoid Stress to Incision Driving Instructions: No Driving/Refer to Dr. Zhang Discharge Diet: No Restrictions Diet After 24 Hours: Clear Liquid if Nauseous If Any Problems/Questions/Issu: Contact Your Physician, Go to Emergency Room Skin/Wound Care Infection Signs and Symptoms: Increased Redness, Foul Odor of Wound, Increased Drainage, Skin Itchy or Has a Rash, Increased Swelling, Temperature Above 101 F Bathing Instructions: Shower Stitches/Tim/Dermabond Dis: SUE Baker DO May 23, 2023 10:50
--- NOTE | 2023-05-23 10:57 | Anesthesia-General Post-Op ---
General Patient Condition Mental Status/LOC: Same as Preop Cardiovascular: Satisfactory Nausea/Vomiting: Absent Respiratory: Satisfactory Pain: Controlled Complications: Absent Post Op Complications Complications None Follow Up Care/Instructions Patient Instructions None needed. Anesthesia/Patient Condition Patient Condition Patient is doing well, no complaints, stable vital signs, no apparent adverse anesthesia problems. No complications reported per nursing. JOHN MIDDLETON CRNA May 23, 2023 10:57
[2023-05-23] MEDS ORDERED: MEPERIDINE INJ 50 MG/ML VIAL IVP ONE (11:00)
[2023-05-23] MEDS ORDERED: fentaNYL INJECTION 100 MCG/2 ML VIAL IVP ONE (11:00)
[2023-05-23] MEDS ORDERED: ONDANSETRON INJECTION 4 MG/2 ML (SDV) IVP PRN (11:00)
[2023-05-23] MEDS ORDERED: morphine INJ 10 MG/ML 1ML (SYR OR VIAL) IVP ONE (11:00)
== END 2023-05-23 14:15 | disposition home or self-care (01) ==
LOC: SDC 06:47
PROVIDERS: ATTEND Surgery
DX: K40.91 Unilateral inguinal hernia, without obstruction or gangrene, recurrent (principal); K21.9 Gastro-esophageal reflux disease without esophagitis; E66.9 Obesity, unspecified; Z28.310 Unvaccinated for COVID-19; Z68.29 Body mass index [BMI] 29.0-29.9, adult; Z98.890 Other specified postprocedural states
CPT/HCPCS: 87081; 94664